=== PATIENT | female | born 1955 | race Caucasian/White ===

== ENCOUNTER 2020-06-09 11:14 | Inpatient (IN) | payer MEDICARE, OTHER ==
[2020-06-09] MEDS ORDERED: Propofol 1,000 MG/100 ML VIAL IV ONE (13:26)
[2020-06-09] MEDS ORDERED: Electrolyte Replacement Protoc 1 EACH EACH IVPB ONE (13:26)
[2020-06-09] MEDS ORDERED: Senokot S 8.6-50 MG TAB PO PRN (13:28)
[2020-06-09] MEDS ORDERED: Ventilator Sedation Protocol 1 EACH FS SCH (13:30)
[2020-06-09] MEDS ORDERED: Electrolyte Replacement Protocol FS PRN (13:45)
[2020-06-09] MEDS ORDERED: DISCONTINUE PREVIOUS NARCOTIC PAIN MEDICATIONS AND BENZODIAZEPINES FS SCH (13:45)
[2020-06-09] MEDS ORDERED: Morphine 2 MG/ML VIAL SLOW IVP PRN (13:45)
[2020-06-09] MEDS ORDERED: Propofol BOLUS 1,000 MG/100 ML VIAL IV PRN (13:45)
[2020-06-09] MEDS ORDERED: Fentanyl BOLUS 250 ML IVPB PRN (13:45)
[2020-06-09 14:10] LABS: Actual Bicarbonate (HCO3a) 43.4 mEq/L (22-28); Base Excess (BEa) 18.7 mEq/L (-2.0 to +3.0); CO2 Tension 52.3 mmHg (35.0-45.0); Calcium, Ionized (arterial) 1.12 mmol/L (1.12-1.30); Carboxyhemoglobin (COHb) 1.3 gm% (0.0-3.0); Hemoglobin (Hb) 9.2 g/dL (12.0-16.0); O2 Tension (PaO2), arterial 60.9 mmHg (> 80.0); Potassium - ABG Lab 2.94 mmol/L (3.70-5.30); pH, Arterial 7.54 (7.35-7.45)
[2020-06-09 14:11] LABS: Puncture Site RRA
[2020-06-09 14:12] LABS: ALV-art Gradient 156.925 mmHg (0-20)
[2020-06-09 15:19] LABS: #Basophils 0.1 thou/uL (0.0-0.2); #Monocytes 0.4 thou/uL (0.11-0.59); #Neutrophils 3.4 thou/uL (1.40-6.50); %Basophils 1.1 % (0.0-1.0); %Eosinophils 0.3 % (0.0-10.0); %Monocytes 7.9 % (0.0-10.0); %Neutrophils 70.7 % (42.0-75.0); Mean Corpuscular HGB CONC 32.5 g/dL (32.0-36.0); Mean Corpuscular Volume 95.4 fL (78.0-98.0); Mean Platelet Volume 7.8 fL (7.4-10.4); Platelet Count 248 thou/uL (130-400); RBC Distribution Width 15.5 % (11.5-14.5); Red Blood Cell (RBC) Count 2.89 mill/uL (4.20-5.40); White Blood Cell (WBC) Count 4.8 thou/uL (4.8-10.8)
[2020-06-09] MEDS: Lactinex Tablet PO SCH ×2 (15:24→20:18)
[2020-06-09] MEDS: Vancomycin 1 GM in Premix Bag 1 BAG IVPB SCH (15:24)
[2020-06-09] MEDS: Lorazepam 2 MG/ML VIAL SLOW IVP PRN (15:24)
[2020-06-09 15:42] LABS: Phosphorus 1.7 mg/dL (2.3-4.7)
[2020-06-09 15:45] LABS: ALT (SGPT) 46 U/L (8-55); AST (SGOT) 26 U/L (5-34); Albumin 4.3 g/dL (3.4-4.8); Alkaline Phosphatase 81 U/L (40-110); BUN (Urea Nitrogen) 18 mg/dL (9.8-20.1); Bilirubin, Total 1.3 mg/dL (0.2-1.2); Calc. Creatinine Clearance 142 mL/min (70-130); Calcium 9.9 mg/dL (7.8-10.44); Estimated GFR-MDRD Greater than 90; Globulin 2.6 g/dL (2.4-3.5); Glucose 137 mg/dL (80-115); Magnesium 2.1 mg/dL (1.6-2.6); Protein, Total 6.9 g/dL (6.0-8.3)
[2020-06-09 15:51] LABS: Chloride 92 mmol/L (98-107); Potassium 3.1 mmol/L (3.5-5.1); Sodium 145 mmol/L (136-145)
[2020-06-09 15:54] LABS: Anion Gap 23 mmol/L (10-20); Carbon Dioxide 33 mmol/L (23-31)
[2020-06-09] MEDS ORDERED: AcetaZOLAMIDE 250 MG TAB PO SCH (16:00)
--- NOTE | 2020-06-09 16:05 | CT ---
CT HEAD WITHOUT IV CONTRAST COMPARISON: None available. HISTORY: Increasing and progressive altered mental status. TECHNIQUE: Axial CT imaging at 5 mm intervals from vertex through skull base without contrast FINDINGS: Endotracheal and orogastric tubes are partially imaged. There is no evidence of an acute infarction, hemorrhage, mass effect, or midline shift. The ventricu lar system is normal in size, shape, and position. Mucous retention cyst is present in each maxillary antrum. Mastoid air cells are clear. Osseous structures appear intact.No calvarial fracture is seen. IMPRESSION: 1. No acute intracranial abnormality demonstrated.
[2020-06-09] MEDS ORDERED: Potassium Chloride 20 MEQ TAB PO SCH (16:15)
--- NOTE | 2020-06-09 16:16 | RAD ---
XR Abdomen 1 View/KUB History: Abdominal bloating Comparison: None. Findings: Enteric tube tip in gastric body. No dilated air-filled loops of large or small bowel. Conc amber for large effusions and left lower lobe consolidation. Phleboliths in the pelvis. Large volume stool within the rectum. Numerous calcified bodies project over the right femoral neck. Impression: 1. Enteric tube tip in gastric body. 2. No evidence for bowel obstruction. 3. Pleural effusions and left lower lobe consolidation.
[2020-06-09] MEDS: PHOS-NAK 1 PKT PACK PO SCH ×2 (16:22→19:30)
[2020-06-09] MEDS: Piperacillin/Tazobactam 4.5 GM in Sodium Chloride 0.9% 100 ML IVPB SCH ×2 (16:22→21:48)
--- NOTE | 2020-06-09 17:32 | OP ---
DATE OF PROCEDURE: 06/09/2020 PROCEDURE: Intubation and bronchoscopy. INDICATION: Hypoxic respiratory failure. No family or consent was available due to the patient's altered mental status. Procedure was performed as an emergency procedure. DESCRIPTION OF PROCEDURE: Patient received propofol total of 80 mg IV. She was then orally intubated with an 8.0 endotracheal tube on the second pass. Procedure was difficult due to neck positioning and an anterior trachea. Following endotracheal tube placement, there were good breath sounds and color change and the patient was placed on the ventilator. The tube was secured at 24 cm. Bronchoscope was then inserted through the endotracheal tube and tip was appropriately positioned several cm above the marie. There was old blood in the right lower lung and in the lingular segment of the left upper lung. No gross purulence or mucus plugging was identified. The underlying mucosa is without tumor or obstruction. The old blood was lavaged and fluid sent for appropriate analysis. Bronchoscope was removed and the patient continued on ventilatory support. Job ID: [id number]
[2020-06-09] MEDS: Propofol 1,000 MG/100 ML VIAL IV PRN (17:44)
[2020-06-09] MEDS ORDERED: Bisacodyl 10 MG SUPP PR SCH (18:00)
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
[2020-06-09] MEDS: Apixaban 5 MG TAB PO SCH (20:18)
[2020-06-09] MEDS: Potassium Chloride 40 MEQ in Sodium Chloride 0.9% 250 ML 250 ML IVPB SCH ×2 (20:18→23:35)
[2020-06-09] MEDS: Famotidine/PF 20 mg/2ml Vial SLOW IVP SCH (20:19)
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
[2020-06-10] MEDS: Vancomycin 1 GM in Premix Bag 1 BAG IVPB SCH ×2 (02:51→15:01)
[2020-06-10] MEDS: Piperacillin/Tazobactam 4.5 GM in Sodium Chloride 0.9% 100 ML IVPB SCH ×3 (03:04→15:02)
[2020-06-10 04:27] LABS: #Eosinphils 0.1 thou/uL (0.0-0.7); #Lymphocytes 0.9 thou/uL (1.20-3.40); #Monocytes 0.6 thou/uL (0.11-0.59); %Basophils 0.1 % (0.0-1.0); %Eosinophils 1.9 % (0.0-10.0); %Lymphocytes 13.9 % (21.0-51.0); %Monocytes 8.6 % (0.0-10.0); %Neutrophils 75.6 % (42.0-75.0); Hemoglobin 9.1 g/dL (12.0-16.0); Mean Corpuscular HGB CONC 31.6 g/dL (32.0-36.0); Mean Corpuscular Hemoglobin 30.1 pg (27.0-31.0); Mean Corpuscular Volume 95.2 fL (78.0-98.0); Mean Platelet Volume 7.4 fL (7.4-10.4); Platelet Count 263 thou/uL (130-400); RBC Distribution Width 15.7 % (11.5-14.5); Red Blood Cell (RBC) Count 3.02 mill/uL (4.20-5.40); White Blood Cell (WBC) Count 6.6 thou/uL (4.8-10.8)
[2020-06-10 04:50] LABS: ALT (SGPT) 42 U/L (8-55); AST (SGOT) 21 U/L (5-34); Albumin 4.3 g/dL (3.4-4.8); Alkaline Phosphatase 82 U/L (40-110); Anion Gap 16 mmol/L (10-20); BUN (Urea Nitrogen) 17 mg/dL (9.8-20.1); Bilirubin, Total 1.9 mg/dL (0.2-1.2); Calc. Creatinine Clearance 142 mL/min (70-130); Calcium 9.8 mg/dL (7.8-10.44); Carbon Dioxide 32 mmol/L (23-31); Chloride 100 mmol/L (98-107); Estimated GFR-MDRD Greater than 90; Globulin 2.6 g/dL (2.4-3.5); Glucose 105 mg/dL (80-115); Phosphorus 1.1 mg/dL (2.3-4.7); Protein, Total 6.9 g/dL (6.0-8.3); Sodium 145 mmol/L (136-145)
[2020-06-10] MEDS: Lorazepam 2 MG/ML VIAL SLOW IVP PRN ×2 (04:56→20:24)
[2020-06-10 05:00] LABS: Potassium 2.8 mmol/L (3.5-5.1)
[2020-06-10] MEDS ORDERED: Potassium Phosphate 22 MMOL in Sodium Chloride 0.9% 250 ML 250 ML IVPB SCH (05:00)
[2020-06-10] MEDS: Levothyroxine Sodium 100 MCG TAB PO SCH (05:44)
[2020-06-10 07:16] LABS: Actual Bicarbonate (HCO3a) 31.9 mEq/L (22-28); Base Excess (BEa) 8.9 mEq/L (-2.0 to +3.0); CO2 Tension 36.9 mmHg (35.0-45.0); Calcium, Ionized (arterial) 1.15 mmol/L (1.12-1.30); Carboxyhemoglobin (COHb) 1.1 gm% (0.0-3.0); Hemoglobin (Hb) 9.3 g/dL (12.0-16.0); Potassium - ABG Lab 2.82 mmol/L (3.70-5.30)
[2020-06-10 07:22] LABS: Puncture Site RRA; pH, Arterial 7.55 (7.35-7.45)
[2020-06-10 07:23] LABS: ALV-art Gradient 188.075 mmHg (0-20)
--- NOTE | 2020-06-10 08:04 | RAD ---
Exam: Chest one view HISTORY:Pneumonia. Intubation. Comparison: 06/07/2020 FINDINGS: Lines and tubes: Endotracheal tube and nasogastric tube have been placed since the previous exam. End otracheal tube terminates just beyond the clavicles. Nasogastric tube extends below the diaphragm. Distal tip is not seen. Cardiac silhouette: Normal Aorta: Unremarkable Pulmonary vessels: Normal Costophrenic angles: Bilateral pleural effusions. LUNGS: Basilar opacities due to atelectasis, pneumonia or aspiration. Pneumothorax: None Osseous abnormalities: None IMPRESSION: 1. Lines and tubes as above 2. Bibasilar pleural and parenchymal changes. Continued surveillance is recommended.
[2020-06-10] MEDS ORDERED: AcetaZOLAMIDE 250 MG TAB PO SCH (09:00)
[2020-06-10] MEDS ORDERED: Potassium Chloride 40 MEQ in Sodium Chloride 0.9% 250 ML 250 ML IVPB SCH (09:00)
[2020-06-10] MEDS: Lactinex Tablet PO SCH ×3 (09:21→20:20)
[2020-06-10] MEDS: Apixaban 5 MG TAB PO SCH ×2 (09:21→20:18)
[2020-06-10] MEDS: Famotidine/PF 20 mg/2ml Vial SLOW IVP SCH ×2 (09:22→20:18)
[2020-06-10] MEDS: Aspirin Chewable 81 MG TAB PO SCH (09:22)
--- NOTE | 2020-06-10 09:24 | PRG ---
DATE OF SERVICE: 06/10/2020 SUBJECTIVE: Mary Alice Mai was transferred from [facility] to [facility] with respiratory failure post intubation. This morning, she is in the ICU. She has received only Ativan. X-ray shows small bilateral pleural effusion. She is responsive. She is unfortunately quadriplegic. OBJECTIVE: GENERAL: She is awake. CHEST: Decreased breath sounds. No wheezing. CARDIAC: Normal S1 and S2. No gallops. ABDOMEN: Soft. IMPRESSION: Respiratory failure, status post intubation, small pleural effusion, congestive heart failure, pneumonia, quadriplegic, hypothyroidism, atrial fibrillation. PLAN: She is on adequate antibiotics and Eliquis and neb treatment. She has supportive care. Palliative Care is on board. We will start nutrition, try and wean as tolerated. Overall, prognosis is guarded. Discussed with family. One-half hour of critical care time. Job ID: [id number]
[2020-06-10] MEDS: Propofol 1,000 MG/100 ML VIAL IV PRN ×2 (09:43→17:43)
[2020-06-10 15:35] LABS: Potassium 3.5 mmol/L (3.5-5.1)
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
[2020-06-10] MEDS: MEROPENEM 1 GM/50 ML 1 GM in Premix Bag 1 BAG IVPB SCH (21:07)
[2020-06-10] MEDS ORDERED: Potassium Chloride 20 MEQ TAB PO SCH (22:45)
[2020-06-11] MEDS: Vancomycin 1 GM in Premix Bag 1 BAG IVPB SCH ×2 (01:24→14:28)
[2020-06-11] MEDS ORDERED: Amiodarone 150 MG, Admixture Fee 1 EACH in Dextrose 5% in Water 100 ML IVPB SCH (01:30)
[2020-06-11] MEDS: Amiodarone 450 MG, Admixture Fee 1 EACH in Dextrose 5% in Water 250 ML IVPB SCH ×2 (01:56→09:56)
[2020-06-11 03:22] LABS: #Eosinphils 0.2 thou/uL (0.0-0.7); #Lymphocytes 0.8 thou/uL (1.20-3.40); #Monocytes 0.5 thou/uL (0.11-0.59); #Neutrophils 7.8 thou/uL (1.40-6.50); %Basophils 0.3 % (0.0-1.0); %Eosinophils 2.1 % (0.0-10.0); %Lymphocytes 8.9 % (21.0-51.0); %Monocytes 5.8 % (0.0-10.0); Hemoglobin 8.5 g/dL (12.0-16.0); Mean Platelet Volume 6.9 fL (7.4-10.4); Platelet Count 206 thou/uL (130-400); RBC Distribution Width 15.7 % (11.5-14.5); Red Blood Cell (RBC) Count 2.74 mill/uL (4.20-5.40); White Blood Cell (WBC) Count 9.4 thou/uL (4.8-10.8)
[2020-06-11 03:43] LABS: ALT (SGPT) 30 U/L (8-55); AST (SGOT) 14 U/L (5-34); Albumin 3.8 g/dL (3.4-4.8); Alkaline Phosphatase 77 U/L (40-110); Anion Gap 12 mmol/L (10-20); BUN (Urea Nitrogen) 13 mg/dL (9.8-20.1); Bilirubin, Total 1.1 mg/dL (0.2-1.2); Calc. Creatinine Clearance 145 mL/min (70-130); Carbon Dioxide 29 mmol/L (23-31); Chloride 104 mmol/L (98-107); Estimated GFR-MDRD Greater than 90; Globulin 2.3 g/dL (2.4-3.5); Glucose 155 mg/dL (80-115); Protein, Total 6.1 g/dL (6.0-8.3); Sodium 142 mmol/L (136-145)
[2020-06-11 03:46] LABS: Potassium 2.8 mmol/L (3.5-5.1)
[2020-06-11] MEDS: Potassium Chloride 40 MEQ in Sodium Chloride 0.9% 250 ML 250 ML IVPB SCH ×2 (04:53→09:55)
[2020-06-11] MEDS: MEROPENEM 1 GM/50 ML 1 GM in Premix Bag 1 BAG IVPB SCH ×3 (05:23→21:11)
[2020-06-11] MEDS: Levothyroxine Sodium 100 MCG TAB PO SCH (05:24)
[2020-06-11] MEDS: Propofol 1,000 MG/100 ML VIAL IV PRN (05:57)
[2020-06-11 07:00] LABS: Magnesium 1.8 mg/dL (1.6-2.6); Phosphorus 2.9 mg/dL (2.3-4.7)
[2020-06-11 07:21] LABS: Actual Bicarbonate (HCO3a) 27.7 mEq/L (22-28); CO2 Tension 37.8 mmHg (35.0-45.0); Calcium, Ionized (arterial) 1.16 mmol/L (1.12-1.30); Carboxyhemoglobin (COHb) 0.9 gm% (0.0-3.0); O2 Tension (PaO2), arterial 116.1 mmHg (> 80.0); Potassium - ABG Lab 3.46 mmol/L (3.70-5.30); pH, Arterial 7.48 (7.35-7.45)
[2020-06-11 07:26] LABS: Puncture Site RRA
--- NOTE | 2020-06-11 07:51 | RAD ---
Chest AP view INDICATION: History of pneumonia COMPARISON: June 10, 2020 FINDINGS: Lungs: There is worsening bilateral perihilar airspace opacities suspicious for worsening edema. Air space disease persists within both lower lobes. Cardiac silhouette: There is stable cardiomegaly Pulmonary vasculature: Worsening pulmonary vascular congestion Pleural spaces: There are small bilateral pleural effusions, left greater than right. Pneumothorax Upper abdomen: No abnormality seen. Osseous structures: No acute osseous abnormality. Additional findings: Pacer remains intubated with gastric catheter placement. IMPRESSION: Worsening component of CHF. Persistent bibasilar airspace disease suspicious for pneumonia. Stable tubes and lines
--- NOTE | 2020-06-11 08:11 | PDOC.HOSPP ---
- Subjective Encounter Date: 06/10/20 Encounter Time: 10:30 Subjective: pt more awake and follows. - Objective Vital Signs & Weight: Vital Signs (12 hours) Temp Pulse Resp BP Pulse Ox 06/11/20 07:10 63 06/11/20 07:00 97.7 F 06/11/20 06:00 12 06/11/20 04:00 98.0 F 18 06/11/20 02:37 90 127/83 100 06/11/20 02:00 17 06/11/20 00:21 89 11 L 97 06/11/20 00:00 97.8 F 12 06/10/20 22:17 88 123/71 06/10/20 22:00 14 Weight Admit Weight 164 lb Weight 164 lb 3.91 oz Most Recent Monitor Data Heart Rate from ECG 67 NIBP 130/85 NIBP BP-Mean 103 Respiration from ECG 28 SpO2 100 I&O: 06/10/20 06/11/20 06/12/20 06:59 06:59 06:59 Intake Total 1500 2334.7 Output Total 2110 1920 25 Balance -610 414.7 -25 Result Diagrams: 06/11/20 03:00 06/11/20 03:00 Hospitalist ROS - Review of Systems Other: unable to obtain - Medication Medications: Active Medications Generic Name Dose Route Start Last Admin Trade Name Freq PRN Reason Stop Dose Admin Acidophilus 1 tab 06/09/20 15:00 06/10/20 20:20 Lactinex Tablet PO 1 tab TID JEEVAN Administration Albuterol/Ipratropium 3 ml 06/10/20 13:00 06/11/20 07:10 Ipratropium/Albuterol Sulfate 3 Ml Neb NEB 3 ml [id number] JEEVAN Administration Apixaban 5 mg 06/09/20 21:00 06/10/20 20:18 Apixaban 5 Mg Tab PO 5 mg BID JEEVAN Administration Aspirin 81 mg 06/10/20 09:00 06/10/20 09:22 Aspirin Chewable 81 Mg Tab PO 81 mg DAILY JEEVAN Administration Famotidine 20 mg 06/09/20 21:00 06/10/20 20:18 Famotidine/Pf 20 Mg/2ml Vial SLOW IVP 20 mg Q12HR JEEVAN Administration Vancomycin HCl 1 gm/ Device 200 mls @ 200 mls/hr 06/09/20 14:00 06/11/20 01:24 IVPB 200 mls 0200,1400 JEEVAN Administration Meropenem 1 gm/ Device 50 mls @ 100 mls/hr 06/10/20 22:00 06/11/20 05:23 IVPB 50 mls Q8HR JEEVAN Administration Amiodarone HCl 450 mg/ 259 mls @ 0 mls/hr 06/11/20 01:30 06/11/20 01:56 Miscellaneous Medication 1 IVPB 259 mls each/ Dextrose/Water INF JEEVAN Administration Protocol As Directed Potassium Chloride 40 meq/ 270 mls @ 67.5 mls/hr 06/11/20 05:00 06/11/20 04:53 Sodium Chloride IVPB 06/11/20 12:59 270 mls Q4HR JEEVAN Administration Levothyroxine Sodium 100 mcg 06/10/20 06:00 06/11/20 05:24 Levothyroxine Sodium 100 Mcg Tab PO 100 mcg 0600 JEEVAN Administration Lorazepam 2 mg 06/09/20 13:45 06/10/20 20:24 Lorazepam 2 Mg/Ml Vial SLOW IVP 07/09/20 13:45 2 mg Q1H PRN Administration Breakthrough agitation Propofol 1,000 mg 06/09/20 13:45 06/11/20 05:57 Propofol 1,000 Mg/100 Ml Vial IV 07/09/20 13:45 1,000 mg INF PRN Administration TO ACHIEVE GOAL RASS Protocol - Exam Neck: negative: supple, symmetric, no JVD, no thyromegaly, no lymphadenopathy, no carotid bruit, JVD Heart: negative: RRR, no murmur, no gallops, no rubs, normal peripheral pulses, irregular, diminshed peripheral pulses, murmur present, II/IV, III/IV Respiratory: negative: CTAB, no wheezes, no rales, no ronchi, normal chest expansion, no tachypnea, normal percussion, rales, rhonchi, tachypneic, wheezes Gastrointestinal: negative: soft, non-tender, non-distended, normal bowel sounds, no palpable masses, no hepatomegaly, no splenomegaly, no bruit, no guarding, no rigidity, tender to palpation, distended, diminished bowl sounds, voluntary guarding Hosp A/P (1) Acute respiratory failure with hypoxia Code(s): J96.01 - ACUTE RESPIRATORY FAILURE WITH HYPOXIA Status: Acute (2) Hypokalemia Code(s): E87.6 - HYPOKALEMIA Status: Acute (3) Pneumonia Code(s): J18.9 - PNEUMONIA, UNSPECIFIED ORGANISM Status: Acute (4) Atrial fibrillation Code(s): I48.91 - UNSPECIFIED ATRIAL FIBRILLATION Status: Chronic Qualifiers: (5) Hypothyroidism Code(s): E03.9 - HYPOTHYROIDISM, UNSPECIFIED Status: Chronic (6) Quadriplegia Code(s): G82.50 - QUADRIPLEGIA, UNSPECIFIED Status: Chronic - Plan will continue abx. she is more awake today and follows. cx negative. will replace electrolytes.
[2020-06-11] MEDS ORDERED: Magnesium 2 GM/50 ML 2 GM in Premix Bag 1 BAG IVPB SCH (08:15)
--- NOTE | 2020-06-11 09:10 | PRG ---
DATE OF SERVICE: 06/11/2020 SUBJECTIVE: Mary Alice Mai, this morning, was extubated, still appears somewhat encephalopathic, but in no distress. OBJECTIVE: VITAL SIGNS: Sats are 100% on a liter, pulse 63, blood pressure . CHEST: Decreased breath sounds. No wheezing. CARDIAC: Normal S1, S2. No gallops. ABDOMEN: Soft. NEUROLOGIC: She is paraplegic. LABORATORY DATA: White count 9000, H and H 8 and 25, platelet count 206. PO2 of 116, pCO2 bicarb was 29, potassium 2.8. Lytes are normal. X-ray still shows bilateral infiltrates. IMPRESSION: Presumed sepsis syndrome, bilateral pulmonary infiltrates, respiratory failure, morbid obesity, probably hypoventilation syndrome. PLAN: Antibiotics as per Infectious Disease. Continue PT, supportive care. She may require nocturnal BiPAP. We will follow. One-half hour of critical care time. Job ID: [id number]
[2020-06-11] MEDS: Apixaban 5 MG TAB PO SCH (09:54)
[2020-06-11] MEDS: Aspirin Chewable 81 MG TAB PO SCH (09:54)
[2020-06-11] MEDS: Famotidine/PF 20 mg/2ml Vial SLOW IVP SCH ×2 (09:55→21:12)
[2020-06-11] MEDS: Lactinex Tablet PO SCH ×3 (09:55→21:06)
--- NOTE | 2020-06-11 16:07 | PDOC.FMACP ---
Advance Care Planning - Problem (1) Palliative care encounter Status: Acute Code(s): Z51.5 - ENCOUNTER FOR PALLIATIVE CARE (2) Acute respiratory failure with hypoxia Status: Acute Code(s): J96.01 - ACUTE RESPIRATORY FAILURE WITH HYPOXIA (3) Heart failure Status: Acute Code(s): I50.9 - HEART FAILURE, UNSPECIFIED Qualifiers: Heart failure type: diastolic Heart failure chronicity: acute on chronic Qualified Code(s): I50.33 - Acute on chronic diastolic (congestive) heart failure - Note Participants: patient, surrogate decision-maker, palliative care Summary: Palliative Care discussed Advanced Care Planning. The diagnosis, prognosis and goals of care were discussed. Appropriate forms and documentation to accomplish the goals of care were discussed. All questions were answered. Completed MPOA with patient as well as discussed Directive to Physician. Confirms placement of PEG if needed, not certain if she would desire a Trach. Discussed she would like resuscitation "one more time". Please also refer to Palliative Care notes in note section. Time Spent (mins): 20
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
--- NOTE | 2020-06-11 16:31 | PDOC.HOSPP ---
- Subjective Encounter Date: 06/11/20 Encounter Time: 16:00 Subjective: pt up in bed no complains - Objective Vital Signs & Weight: Vital Signs (12 hours) Temp Pulse Pulse Pulse Resp BP BP 06/11/20 14:09 63 06/11/20 12:49 66 24 H 06/11/20 11:00 97.9 F 06/11/20 09:50 76 80 151/96 H 126/96 H 06/11/20 08:00 17 06/11/20 07:59 06/11/20 07:10 63 06/11/20 07:00 97.7 F 06/11/20 06:00 12 Pulse Ox Pulse Ox Pulse Ox 06/11/20 14:09 06/11/20 12:49 98 06/11/20 11:00 06/11/20 09:50 99 100 06/11/20 08:00 06/11/20 07:59 100 06/11/20 07:10 06/11/20 07:00 06/11/20 06:00 Weight Admit Weight 164 lb Weight 164 lb 3.91 oz Most Recent Monitor Data Heart Rate from ECG 58 NIBP 113/64 NIBP BP-Mean 74 Respiration from ECG 20 SpO2 99 I&O: 06/10/20 06/11/20 06/12/20 06:59 06:59 06:59 Intake Total 1500 2334.7 350 Output Total 2110 1920 255 Balance -610 414.7 95 Result Diagrams: 06/11/20 03:00 06/11/20 03:00 Hospitalist ROS - Review of Systems Respiratory: denies: cough, dry, shortness of breath, hemoptysis, SOB with excertion, pleuritic pain, sputum, wheezing, other Cardiovascular: denies: chest pain, palpitations, orthopnea, paroxysmal noc. dyspnea, edema, light headedness, other Gastrointestinal: denies: nausea, vomiting, abdominal pain, diarrhea, constipation, melena, hematochezia, other - Medication Medications: Active Medications Generic Name Dose Route Start Last Admin Trade Name Freq PRN Reason Stop Dose Admin Acidophilus 1 tab 06/09/20 15:00 06/11/20 14:27 Lactinex Tablet PO 1 tab TID JEEVAN Administration Albuterol/Ipratropium 3 ml 06/10/20 13:00 06/11/20 12:49 Ipratropium/Albuterol Sulfate 3 Ml Neb NEB 3 ml [id number] JEEVAN Administration Apixaban 5 mg 06/09/20 21:00 06/11/20 09:54 Apixaban 5 Mg Tab PO 5 mg BID JEEVAN Administration Aspirin 81 mg 06/10/20 09:00 06/11/20 09:54 Aspirin Chewable 81 Mg Tab PO 81 mg DAILY JEEVAN Administration Famotidine 20 mg 06/09/20 21:00 06/11/20 09:55 Famotidine/Pf 20 Mg/2ml Vial SLOW IVP 20 mg Q12HR JEEVAN Administration Vancomycin HCl 1 gm/ Device 200 mls @ 200 mls/hr 06/09/20 14:00 06/11/20 14:28 IVPB 200 mls 0200,1400 JEEVAN Administration Meropenem 1 gm/ Device 50 mls @ 100 mls/hr 06/10/20 22:00 06/11/20 14:33 IVPB 50 mls Q8HR JEEVAN Administration Amiodarone HCl 450 mg/ 259 mls @ 0 mls/hr 06/11/20 01:30 06/11/20 09:56 Miscellaneous Medication 1 IVPB 259 mls each/ Dextrose/Water INF JEEVAN Administration Protocol As Directed Levothyroxine Sodium 100 mcg 06/10/20 06:00 06/11/20 05:24 Levothyroxine Sodium 100 Mcg Tab PO 100 mcg 0600 JEEVAN Administration Lorazepam 2 mg 06/09/20 13:45 06/10/20 20:24 Lorazepam 2 Mg/Ml Vial SLOW IVP 07/09/20 13:45 2 mg Q1H PRN Administration Breakthrough agitation Propofol 1,000 mg 06/09/20 13:45 06/11/20 05:57 Propofol 1,000 Mg/100 Ml Vial IV 07/09/20 13:45 1,000 mg INF PRN Administration TO ACHIEVE GOAL RASS Protocol - Exam Heart: negative: RRR, no murmur, no gallops, no rubs, normal peripheral pulses, irregular, diminshed peripheral pulses, murmur present, II/IV, III/IV Respiratory: negative: CTAB, no wheezes, no rales, no ronchi, normal chest expansion, no tachypnea, normal percussion, rales, rhonchi, tachypneic, wheezes Gastrointestinal: negative: soft, non-tender, non-distended, normal bowel so unds, no palpable masses, no hepatomegaly, no splenomegaly, no bruit, no guarding, no rigidity, tender to palpation, distended, diminished bowl sounds, voluntary guarding Extremities: 1+ LE edema Hosp A/P (1) Acute respiratory failure with hypoxia Code(s): J96.01 - ACUTE RESPIRATORY FAILURE WITH HYPOXIA Status: Acute (2) Hypokalemia Code(s): E87.6 - HYPOKALEMIA Status: Acute (3) Pneumonia Code(s): J18.9 - PNEUMONIA, UNSPECIFIED ORGANISM Status: Acute (4) Atrial fibrillation Code(s): I48.91 - UNSPECIFIED ATRIAL FIBRILLATION Status: Chronic Qualifiers: (5) Hypothyroidism Code(s): E03.9 - HYPOTHYROIDISM, UNSPECIFIED Status: Chronic (6) Quadriplegia Code(s): G82.50 - QUADRIPLEGIA, UNSPECIFIED Status: Chronic - Plan will continue abx. she is more awake today and follows. cx negative. will replace electrolytes. 06/11 will continue abx for now. pt extubated doing well. she has agreed on peg tube since pt is aspirating.
[2020-06-11 17:21] LABS: Potassium 4.2 mmol/L (3.5-5.1)
--- NOTE | 2020-06-11 18:44 | PQF ---
CLINICAL DOCUMENTATION CLARIFICATION FORM: Dear Dr. SHAVONNE PEREZ Date: 06-11-20 Please exercise your independent, professional judgment in responding to the clarification form. Clinical indicators are provided on the bottom of this form for your review. Please check appropriate box(es) to clarify if the following diagnosis has been ruled in our ruled out: SEPSIS [ ] Ruled in diagnosis [ ] Continue to treat [ ] Resolved [ x ] Ruled out diagnosis [ ] Other diagnosis [ ] Unable to determine In addition, please specify: Present on Admission (POA): [ ] Yes [ x ] No [ ] Unable to determine For continuity of documentation, please document condition throughout progress notes and discharge summary. Thank You. To be completed by CDI/Coding staff for physician review: CLINICAL INDICATORS - SIGNS / SYMPTOMS / LABS / RESULTS AND LOCATION IN MR: H&P 06-09: ACUTE HYPOXIC AND HYPERCAPNIC RESPIRATORY FAILURE, MOST LIKELY SECONDARY TO PNEUMONIA, PNEUMONIA COULD BE POSSIBLE SECONDARY TO ASPIRATION, GUADRIPLEGIA, METABOLIC ALKALOSIS CONSULT NOTE DR. SHERIFF 06-11-20: PRESUMED SEPSIS SYNDROME, BILATERAL PULMONARY INFILTRATES, RESPIRATORY FAILURE, MORBID OBESITY, PROBABLY HYPOVENTILATION SYNDROME NEUTROPHILS: 06-10-20: 75.6, 06-11-20: 83.0 RISK FACTORS / RESULTS AND LOCATION IN MR: H&P -: ACUTE HYPOXIC AND HYPERCAPNIC RESPIRATORY FAILURE, MOST LIKELY SECONDARY TO PNEUMONIA, PNEUMONIA COULD BE POSSIBLE SECONDARY TO ASPIRATION, GUADRIPLEGIA, METABOLIC ALKALOSIS TREATMENTS / RESULTS AND LOCATION IN MR: MAR: 06-10-20: MEROPENEM IV, VANCOMYCIN IV, ZOSYN IV 06-09-20 CDS Signature: Kaleigh Murdock Phone #: [phone] Date: 06-11-20 This is a permanent part of the Medical Record [facility]
[2020-06-12] MEDS: Amiodarone 450 MG, Admixture Fee 1 EACH in Dextrose 5% in Water 250 ML IVPB SCH ×2 (01:29→15:12)
[2020-06-12] MEDS: Vancomycin 1 GM in Premix Bag 1 BAG IVPB SCH (01:30)
--- NOTE | 2020-06-12 01:44 | CON ---
DATE OF CONSULTATION: 06/11/2020 REASON FOR CONSULTATION: Possible oropharyngeal dysphagia, in need of PEG tube placement. CONSULTING PROVIDER: Dr. Mere Pierce. HISTORY OF PRESENT ILLNESS: The patient is a 64-year-old female with past medical history of hypothyroidism; chronic anemia; paroxysmal atrial fibrillation, on anticoagulation (Eliquis); chronic indwelling Lozoya catheter; C5 quadriplegia; and recurrent pneumonias concerning for aspiration pneumonia, initially presenting with respiratory failure. The patient was initially seen at the [facility] where the patient presented with worsening shortness of breath and hypoxia. She was initially placed on BiPAP as part of noninvasive oxygenation/pressure management, but despite this intervention, she continued to worsen and was subsequently transferred to [facility] in [place]. Shortly after admission, the patient was tachypneic, lethargic, and not following commands and was subsequently intubated for further control of her hypoxia. Over the last few days, the patient has been doing well and was subsequently extubated yesterday. However, during the course of starting her feeds after extubation, it was noted that she had increased coughing and gagging episodes in addition to significant oxygen desaturation with ingestion of any oral intake concerning for aspiration. With her respiratory failure, this was deemed to be secondary to a probable pneumonia and given her acute oxygen desaturation with ingestion of any food stuffs, is now concerning for the presence of aspiration pneumonia and oropharyngeal dysphagia. On evaluation of the patient tonight, she states that she is doing much better, although she does have some mild conversational dyspnea during the course of the conversation. Currently, she states that her breathing "could be better," but otherwise is doing well. She currently denies any nausea, vomiting, fevers, chills, hematemesis, melena, hematochezia, abdominal pain, or abdominal pain. When I broached the subject of possible PEG tube placement with the patient, she initially did not feel that she wanted to undergo this procedure, but later during the course of the interview stated that she would "think about it." She has not been formally evaluated by the Speech Pathology Service just yet to confirm the presence of aspiration. REVIEW OF SYSTEMS: A 10-category review of systems was obtained with all responses negative except for the pertinent positives as listed in HPI. PAST MEDICAL HISTORY: As per HPI. PAST SURGICAL HISTORY: Spinal cord surgery. FAMILY HISTORY: Denies any GI malignancies. SOCIAL HISTORY: Denies any tobacco, alcohol, or illicit drug use. INPATIENT MEDICATIONS: Reviewed. ALLERGIES: SULFA. PHYSICAL EXAMINATION: VITAL SIGNS: Temperature 97.2, pulse 59, blood pressure 110/70, respiratory rate 16, saturating 98% on 2 L nasal cannula. GENERAL: The patient was lying in bed, in no acute distress. Alert and oriented x4. HEENT: Normocephalic and atraumatic. NECK: Supple. No JVD or scleral icterus noted. Mild conversational dyspnea. CARDIOVASCULAR: Irregularly irregular rhythm with no discernible murmurs, gallops, or rubs. RESPIRATORY: Diminished breath sounds in the bilateral lower lung torres, but no evidence of wheezing or rhonchi. ABDOMEN: Normoactive bowel sounds. Soft, nontender, and nondistended. EXTREMITIES: No cyanosis, clubbing, or edema. LABORATORY DATA: CBC with a white blood cell count of 9.4, hemoglobin 8.5, hematocrit 25.8, platelets 206. Chemistry with a sodium of 142, potassium 2.8, chloride 104, CO2 of 29, BUN 13, creatinine 0.47, glucose 155, AST 14, ALT 30, alkaline phosphatase 77, total bilirubin 1.1. BNP 547. Albumin 3.8. IMAGING DATA: Chest x-ray obtained on June 11, 2020, showed worsening bilateral perihilar airspace opacity suspicious for worsening edema that persists within both lower lobes, worsening pulmonary vascular congestion, small bilateral pleural effusions with left greater than right with persistent bibasilar airspace disease suspicious for continue pneumonia. ASSESSMENT AND PLAN: The patient is a 64-year-old female with past medical history of hypothyroidism; chronic anemia; paroxysmal atrial fibrillation, on Eliquis; C5 quadriplegia with chronic indwelling Lozoya catheter, now presenting with recurrent pneumonias during the course of this month strongly concerning for the presence of aspiration pneumonia. Aspiration pneumonia. The patient is presenting with repeated hospitalizations since the beginning of May for diagnoses of pneumonia that has responded well to antibiotic administration. During the course of this admission, the patient was initially presenting with acute hypoxia and respiratory failure that required intubation as part of treatment for her pneumonia. Again, she responded well to antibiotic administration, was subsequently extubated yesterday. However, upon extubation and feeding the patient in the post extubation period, she was noted to have significant oxygen desaturation with the ingestion of any food stuff concerning for the presence of oropharyngeal dysphagia contributing to an aspiration pneumonia. At the current time, the patient is n.p.o. prior to evaluation by the Speech Pathology Service to establish the diagnosis of oropharyngeal dysphagia. Upon my conversation with the patient today, she is unsure whether or not she would like to proceed with gastrostomy tube placement after long discussion of the risks and benefits to the procedure itself and the long-term implications of the placement of the PEG tube. RECOMMENDATIONS: 1. Would hold her Eliquis for now with placing the patient on Lovenox as a bridge prior to possible procedure later this week. She will need to be off the Eliquis for approximately 48 hours prior to proceeding with PEG tube placement. 2. Agree with consulting the Speech Pathology Service for confirmation of the diagnosis of oropharyngeal dysphagia prior to proceeding to any instrumentation. 3. We will need to talk to the patient tomorrow regarding her desire to proceed with gastrostomy tube placement. Risks and benefits were extensively discussed today. 4. Would continue n.p.o. status in light of possible aspiration pneumonia. 5. Continue with broad-spectrum antibiotics as part of treatment for pneumonia. We will continue to follow. Please call with any questions. Job ID: [id number]
[2020-06-12] MEDS: Levothyroxine Sodium 100 MCG TAB PO SCH (05:12)
[2020-06-12] MEDS: MEROPENEM 1 GM/50 ML 1 GM in Premix Bag 1 BAG IVPB SCH ×3 (05:12→21:54)
[2020-06-12 05:36] LABS: #Eosinphils 0.3 thou/uL (0.0-0.7); #Lymphocytes 0.9 thou/uL (1.20-3.40); #Monocytes 0.4 thou/uL (0.11-0.59); #Neutrophils 5.3 thou/uL (1.40-6.50); %Basophils 0.5 % (0.0-1.0); %Eosinophils 4.8 % (0.0-10.0); %Lymphocytes 12.7 % (21.0-51.0); %Neutrophils 76.1 % (42.0-75.0); Hemoglobin 7.7 g/dL (12.0-16.0); Mean Corpuscular HGB CONC 31.9 g/dL (32.0-36.0); Mean Corpuscular Hemoglobin 30.4 pg (27.0-31.0); Mean Corpuscular Volume 95.3 fL (78.0-98.0); Mean Platelet Volume 7.3 fL (7.4-10.4); Platelet Count 196 thou/uL (130-400); RBC Distribution Width 16.2 % (11.5-14.5); Red Blood Cell (RBC) Count 2.54 mill/uL (4.20-5.40)
[2020-06-12 06:04] LABS: ALT (SGPT) 32 U/L (8-55); AST (SGOT) 18 U/L (5-34); Albumin 3.7 g/dL (3.4-4.8); Alkaline Phosphatase 78 U/L (40-110); Anion Gap 12 mmol/L (10-20); BUN (Urea Nitrogen) 13 mg/dL (9.8-20.1); Bilirubin, Total 0.7 mg/dL (0.2-1.2); Calc. Creatinine Clearance 147 mL/min (70-130); Calcium 8.8 mg/dL (7.8-10.44); Carbon Dioxide 28 mmol/L (23-31); Chloride 106 mmol/L (98-107); Estimated GFR-MDRD Greater than 90; Globulin 2.3 g/dL (2.4-3.5); Glucose 96 mg/dL (80-115); Magnesium 2.3 mg/dL (1.6-2.6); Potassium 3.9 mmol/L (3.5-5.1); Sodium 142 mmol/L (136-145)
--- NOTE | 2020-06-12 08:06 | RAD ---
EXAM: CHEST ONE VIEW HISTORY: Follow-up evaluation. Patient on ventilator. COMPARISON: 06/11/2020 FINDINGS: Endotracheal tube and nasogastric tubes have been removed. Cardiac silhouette remains stable in size. There is an area of dense parenchymal consolidation seen at the right lung base which does appear mildly increased from prior study and may be related to pneumonia. There also appears to be dense opa city in the retrocardiac region similar to prior exam. Bilateral perihilar interstitial and patchy parenchymal airspace opacities are also again seen. This may be related to an element of pulmonary ed paris or infectious process. No other interval change. IMPRESSION: 1. Dense area of consolidation right lung base worrisome for pneumonia. There is also persistent dens e opacity in the retrocardiac region left lung base not well assessed on this exam but also could be related to pneumonia, pleural effusion, and/or atelectasis. 2. Increased perihilar interstitial and patchy airspace opacities which could be related to pulmonary edema or infectious process. 3. Interval removal of the endotracheal tube and nasogastric tube.
[2020-06-12] MEDS: Famotidine/PF 20 mg/2ml Vial SLOW IVP SCH ×2 (08:29→19:33)
[2020-06-12] MEDS: Lactinex Tablet PO SCH ×3 (08:29→19:33)
[2020-06-12] MEDS ORDERED: Furosemide 40 MG/4 ML VIAL IVP SCH (08:45)
[2020-06-12 08:53] LABS: Actual Bicarbonate (HCO3a) 30.3 mEq/L (22-28); Base Excess (BEa) 2.6 mEq/L (-2.0 to +3.0); Calcium, Ionized (arterial) 1.25 mmol/L (1.12-1.30); Carboxyhemoglobin (COHb) 1.7 gm% (0.0-3.0); Hemoglobin (Hb) 8.3 g/dL (12.0-16.0); O2 Tension (PaO2), arterial 81.1 mmHg (> 80.0); Potassium - ABG Lab 4.05 mmol/L (3.70-5.30); pH, Arterial 7.27 (7.35-7.45)
[2020-06-12 08:56] LABS: Puncture Site RRA
[2020-06-12] MEDS ORDERED: EPINEPHrine 1 MG/ML AMP ONE (09:22)
[2020-06-12] MEDS ORDERED: EPINEPHrine 1 MG/10 ML Abboject SYRINGE ONE (09:22)
--- NOTE | 2020-06-12 09:33 | PRG ---
DATE OF SERVICE: 06/12/2020 SUBJECTIVE: Mary Alice Mai is a 64-year-old female. This morning, feeling more tired, more lethargic. OBJECTIVE: VITAL SIGNS: , saturation of 90% on BiPAP, blood pressure . CHEST: Decreased breath sounds. Bilateral rhonchi and crackles. CARDIAC: Normal S1, S2. No gallops. ABDOMEN: No masses. LABORATORY DATA: White count 7000, H and H 7 and 24. Platelet count is normal. Lytes are normal. BNP is 457. X-ray shows worsening bilateral infiltrates, left pleural effusion. ASSESSMENT: 1. Multiorgan failure in a quadriplegic patient. 2. Bilateral bronchopneumonia. 3. Supraventricular tachycardia. 4. Dysphagia. PLAN: I spoke to the patient's power of contracts attorney medically, Veena Conner. She said she spoke to the patient yesterday when she was more alert. She wanted everything to be done including a trach and a PEG to prolong her life. She is already on adequate antibiotics. I am going to give a trial of Lasix. Cardiology was consulted yesterday. EP was consulted. GI was consulted. I am going to order a blood gas. She may very well require intubation and vent support. One-half hour of critical care time. Job ID: [id number]
[2020-06-12] MEDS: fentaNYL Citrate/PF 2,000 MCG in Sodium Chloride 0.9% 60 ML IV SCH (09:53)
[2020-06-12 10:28] LABS: Actual Bicarbonate (HCO3a) 26.4 mEq/L (22-28); Analyzer IN Cardio ER; Base Excess (BEa) 2.1 mEq/L (-2.0 to +3.0); CO2 Tension 40.1 mmHg (35.0-45.0); Calcium, Ionized (arterial) 1.17 mmol/L (1.12-1.30); Carboxyhemoglobin (COHb) 1.1 gm% (0.0-3.0); Hemoglobin (Hb) 8.9 g/dL (12.0-16.0); O2 Tension (PaO2), arterial 87.5 mmHg (> 80.0); Potassium - ABG Lab 3.68 mmol/L (3.70-5.30); pH, Arterial 7.44 (7.35-7.45)
[2020-06-12 10:31] LABS: Puncture Site RRA
[2020-06-12 10:32] LABS: ALV-art Gradient 111.925 mmHg (0-20)
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
--- NOTE | 2020-06-12 12:41 | OP ---
DATE OF PROCEDURE: 06/12/2020 PROCEDURE PERFORMED: Intubation followed by bronchoscopy, lavage procedure. INDICATIONS FOR PROCEDURE: Mary Alice Mai is a 64-year-old female. This morning, she was found to be much more lethargic. Blood gas obtained shows pO2 of 81, pCO2 of 68 , P7 .20 on BiPAP 12/5 with a backup rate of 10. It was felt that she needs to be intubated. I spoke to her medical power of consumer attorney, she said the patient wanted everything to be done. DESCRIPTION OF PROCEDURE: After informed consent, a bite block was placed in. A 7.5 endotracheal tube was placed over the bronchoscope using a bite block was passed via the posterior pharynx via the vocal cords into the trachea. There was a large amount of blood seen in the distal trachea. Upon entering the bronchus the trachea was secured, cuff was inflated. She was back with sats of 100%. Thereafter, bronchoscopy and lavage performed because of significant hemorrhage. Large volume of bright-red blood was seen in the distal trachea, which was suctioned, lavaged to clear. Thereafter, the right lung had been inspected, further large volume of blood was seen with clots, which was completely lavaged with normal saline total of 50 mL. Thereafter, the right upper, right middle, right lower lobes were visualized without any further endobronchial disease seen. The left lung was inspected thereafter. This had less amount of blood. This was also suctioned, lavaged to clear. The left upper and left lower lobes were visualized once again without any further endobronchial disease. Epinephrine 3 mL of 1:10,000 instilled into the right lung. Washing was sent for Gram stain and C and S. it is my impression that she is probably going to require a PEG because she is having issues with dysphagia and possibly recurrent aspiration. Job ID: [id number] [facility]
--- NOTE | 2020-06-12 12:56 | PDOC.HOSPP ---
- Subjective Encounter Date: 06/12/20 Encounter Time: 11:45 Subjective: pt intubated - Objective Vital Signs & Weight: Vital Signs (12 hours) Temp Pulse Resp BP Pulse Ox 06/12/20 12:00 99.3 F 14 100 06/12/20 10:06 79 105/79 06/12/20 10:00 14 06/12/20 09:00 94.9 F L 06/12/20 07:34 17 96 06/12/20 04:00 97.6 F 06/12/20 03:01 55 L Weight Admit Weight 164 lb Weight 165 lb 9.074 oz Most Recent Monitor Data Heart Rate from ECG 112 NIBP 153/101 NIBP BP-Mean 117 Respiration from ECG 20 SpO2 98 I&O: 06/11/20 06/12/20 06/13/20 06:59 06:59 06:59 Intake Total 2334.7 1500 0 Output Total 9569 780 0869 Balance 414.7 680 -1905 Result Diagrams: 06/12/20 05:20 06/12/20 05:20 Hospitalist ROS - Review of Systems Other: pt intubated - Medication Medications: Active Medications Generic Name Dose Route Start Last Admin Trade Name Freq PRN Reason Stop Dose Admin Acidophilus 1 tab 06/09/20 15:00 06/12/20 08:29 Lactinex Tablet PO Not Given TID JEEVAN Albuterol/Ipratropium 3 ml 06/10/20 13:00 06/12/20 04:58 Ipratropium/Albuterol Sulfate 3 Ml Neb NEB 3 ml [id number] JEEVAN Administration Famotidine 20 mg 06/09/20 21:00 06/12/20 08:29 Famotidine/Pf 20 Mg/2ml Vial SLOW IVP 20 mg Q12HR JEEVAN Administration Vancomycin HCl 1 gm/ Device 200 mls @ 200 mls/hr 06/09/20 14:00 06/12/20 01:30 IVPB 200 mls 0200,1400 JEEVAN Administration Fentanyl Citrate 2,000 mcg/ 100 mls @ 0 mls/hr 06/09/20 13:45 06/12/20 09:53 Sodium Chloride IV 07/09/20 13:45 100 mls INF JEEVAN Administration Protocol Per Protocol Meropenem 1 gm/ Device 50 mls @ 100 mls/hr 06/10/20 22:00 06/12/20 05:12 IVPB 50 mls Q8HR JEEVAN Administration Amiodarone HCl 450 mg/ 259 mls @ 0 mls/hr 06/11/20 01:30 06/12/20 01:29 Miscellaneous Medication 1 IVPB 259 mls each/ Dextrose/Water INF JEEVAN Administration Protocol As Directed Lorazepam 2 mg 06/09/20 13:45 06/10/20 20:24 Lorazepam 2 Mg/Ml Vial SLOW IVP 07/09/20 13:45 2 mg Q1H PRN Administration Breakthrough agitation Propofol 1,000 mg 06/09/20 13:45 06/11/20 05:57 Propofol 1,000 Mg/100 Ml Vial IV 07/09/20 13:45 1,000 mg INF PRN Administration TO ACHIEVE GOAL RASS Protocol - Exam Neck: negative: supple, symmetric, no JVD, no thyromegaly, no lymphadenopathy, no carotid bruit, JVD Heart: negative: RRR, no murmur, no gallops, no rubs, normal peripheral pulses, irregular, diminshed peripheral pulses, murmur present, II/IV, III/IV Respiratory: rhonchi Gastrointestinal: negative: soft, non-tender, non-distended, normal bowel sounds , no palpable masses, no hepatomegaly, no splenomegaly, no bruit, no guarding, no rigidity, tender to palpation, distended, diminished bowl sounds, voluntary guarding Hosp A/P (1) Acute respiratory failure with hypoxia Code(s): J96.01 - ACUTE RESPIRATORY FAILURE WITH HYPOXIA Status: Acute (2) Hypokalemia Code(s): E87.6 - HYPOKALEMIA Status: Acute (3) Pneumonia Code(s): J18.9 - PNEUMONIA, UNSPECIFIED ORGANISM Status: Acute (4) Atrial fibrillation Code(s): I48.91 - UNSPECIFIED ATRIAL FIBRILLATION Status: Chronic Qualifiers: (5) Hypothyroidism Code(s): E03.9 - HYPOTHYROIDISM, UNSPECIFIED Status: Chronic (6) Quadriplegia Code(s): G82.50 - QUADRIPLEGIA, UNSPECIFIED Status: Chronic - Plan will continue abx. she is more awake today and follows. cx negative. will replace electrolytes. 06/11 will continue abx for now. pt extubated doing well. she has agreed on peg tube since pt is aspirating. 06/12 pt has worsening cxr. she was reintubated. pt will most likely trach and peg. I did speak with pt's caregiver emmy and updated her. I also educated her that getting trach and peg will not prevent aspiration she can still aspirate. will continue abx. pt on AC for afib. pt was on iv amio for afib rvr
[2020-06-12 13:19] LABS: Vancomycin, Trough 28.4 ug/mL
[2020-06-12] MEDS ORDERED: Levothyroxine Sodium 100 MCG TAB PO SCH (13:30)
[2020-06-12] MEDS ORDERED: VANCOMYCIN IVPB PRN (13:37)
[2020-06-12] MEDS ORDERED: Vancomycin 1 GM in Premix Bag 1 BAG IVPB SCH (14:00)
--- NOTE | 2020-06-12 14:42 | PDOC.CPN ---
- Subjective Date: 06/12/20 Time: 08:00 Interval history: The pt seen and examined. No overnight events. No cardiac complaints. - Objective Allergies/Adverse Reactions: Allergies Allergy/AdvReac Type Severity Reaction Status Date / Time Sulfa (Sulfonamide Allergy Verified 05/26/20 01:22 Antibiotics) Visit Medications: Current Medications Acidophilus (Lactinex Tablet) 1 tab PO TID [facility] Last Admin: 06/12/20 08:29 Dose: Not Given Documented by: Albuterol/Ipratropium (Ipratropium/Albuterol Sulfate 3 Ml Neb) 3 ml NEB [id number] JEEVAN Last Admin: 06/12/20 13:49 Dose: 3 ml Documented by: Bisacodyl (Bisacodyl 10 Mg Supp) 10 mg AR Q8H PRN PRN Reason: Constipation Famotidine (Famotidine/Pf 20 Mg/2ml Vial) 20 mg SLOW IVP Q12HR [facility] Last Admin: 06/12/20 08:29 Dose: 20 mg Documented by: Fentanyl Citrate 2,000 mcg/ (Sodium Chloride) 100 mls @ 0 mls/hr IV INF JEEVAN; Protocol Stop: 07/09/20 13:45 Last Admin: 06/12/20 09:53 Dose: 100 mls Documented by: Fentanyl Citrate (Fentanyl Bolus) 250 mls @ 0 mls/hr IVPB PRN PRN PRN Reason: Breakthrough pain/agitation Stop: 07/09/20 13:45 Meropenem 1 gm/ Device 50 mls @ 100 mls/hr IVPB Q8HR [facility] Last Admin: 06/12/20 05:12 Dose: 50 mls Documented by: Amiodarone HCl 450 mg/Miscellaneous Medication 1 each/ Dextrose/Water 259 mls @ 0 mls/hr IVPB INF JEEVAN; Protocol Last Admin: 06/12/20 01:29 Dose: 259 mls Documented by: Vancomycin HCl 1 gm/ Device 200 mls @ 200 mls/hr IVPB 0200,1400 [facility] Levothyroxine Sodium (Levothyroxine Sodium 100 Mcg Tab) 100 mcg PO 0600 [facility] Levothyroxine Sodium (Levothyroxine Sodium 100 Mcg Tab) 100 mcg PO NOW [facility] Stop: 06/12/20 15:00 Lorazepam (Lorazepam 2 Mg/Ml Vial) 2 mg SLOW IVP Q1H PRN PRN Reason: Breakthrough agitation Stop: 07/09/20 13:45 Last Admin: 06/10/20 20:24 Dose: 2 mg Documented by: Miscellaneous Medication (Electrolyte Replacement Protocol) 0 each FS ASDIR PRN; Protocol PRN Reason: ELECTROLYTE REPLACEMENT Miscellaneous Medication (Vancomycin) 1 each IVPB PRN PRN PRN Reason: Pharmacy to dose Morphine Sulfate (Morphine 2 Mg/Ml Vial) 2 mg SLOW IVP Q1H PRN PRN Reason: Breakthrough Pain/Agitation Stop: 07/09/20 13:45 Discontinue Previous Narcotic Pain Medications And Benzodiazepines 1 each FS .ONE JEEVAN Stop: 07/09/20 13:45 Propofol (Propofol 1,000 Mg/100 Ml Vial) 1,000 mg IV INF PRN; Protocol PRN Reason: TO ACHIEVE GOAL RASS Stop: 07/09/20 13:45 Last Admin: 06/11/20 05:57 Dose: 1,000 mg Documented by: Propofol (Propofol Bolus 1,000 Mg/100 Ml Vial) 20 mg IV Q5MIN PRN PRN Reason: BREAKTHROUGH AGITATION Stop: 07/09/20 13:45 Senna/Docusate Sodium (Senokot S 8.6-50 Mg Tab) 2 tab PO BIDPRN PRN PRN Reason: Constipation Vital Signs & Weight: Vital Signs Temp Pulse Resp BP Pulse Ox 06/12/20 14:34 124 H 117/81 06/12/20 14:00 13 06/12/20 13:49 100 17 99 06/12/20 13:00 20 100 06/12/20 12:00 99.3 F 14 100 06/12/20 10:06 79 105/79 06/12/20 10:00 14 06/12/20 09:00 94.9 F L 06/12/20 07:34 17 96 06/12/20 04:00 97.6 F 06/12/20 03:01 55 L Admit Weight 162 lb 4.163 oz Weight 165 lb 9.074 oz - Physical Exam General: alert & oriented x3 HEENT: mucus membranes moist Cardiac: regular rate and rhythm, S1/S2 Lungs: clear to auscultation, decreased breath sounds - Labs Result Diagrams: 06/13/20 06:43 06/13/20 06:43 - Telemetry Sinus rhythms and dysrhythmias: sinus rhythm - Assessment/Plan Assessment/Plan: 1. New onset Aflutter with RVR - remains in SR; On Amiodarone drip; Maritza is on hold due to plan for PEG tube placement; not on Lovenox for now due to low Hgb 7.7 today 2. Parox Afib - remains in SR; Will start Bblocker once her VS is more stable; she was reintubated due to worsening of OLIVO. 3. Acute respiratory failure with hypoxia - stable with NC this AM; however, 4. PNA - possible 2/2 aspiration PNA 5. Hypothyroidism 6. Quadriplegia MAR reviewed * Dr Crump pt Pt. seen and eval. by me. She is back in atrial fib. Required intubation, unable to clear secretions. Plan for tracheostomy and PEG tube per pt. wishes.Chest: rhonchi/rales. Irreg./irreg. mild tachycardia. kurt
[2020-06-12] MEDS: Lorazepam 2 MG/ML VIAL SLOW IVP PRN (15:12)
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
--- NOTE | 2020-06-12 17:17 | PRG ---
DATE OF SERVICE: 06/12/2020 SUBJECTIVE: Ms. Mai is now intubated. The nurse informs me that she had to be intubated secondary to diminishing mental status and hypoxemia, ventilatory failure related to recurrent aspiration yesterday. The patient refused the idea of being n.p.o. and having a PEG tube and is going to think about it. Apparently, today, the nurses note that the durable power of cello teacher is making decisions and has requested the PEG and trach. Eliquis was held yesterday, last dose was 5 mg yesterday morning. MEDICATIONS: 1. Floranex. 2. DuoNebs. 3. Amiodarone. 4. Diltiazem. 5. Famotidine. 6. P.r.n. fentanyl. 7. Synthroid. 8. Meropenem. 9. Lorazepam. 10. Propofol. 11. She has been restarted on tube feeds. OBJECTIVE: VITAL SIGNS: Temperature 99, blood pressure 120/68. GENERAL: She is sedated. She has OG-tube for feeding. She is intubated. ABDOMEN: She has a large abdomen. There is no palpable hepatosplenomegaly. Bowel sounds are quiescent. There is no rebound. There is no guarding. LABORATORY DATA: White count 7.0; hemoglobin 7.7, it was 8.5 yesterday, 9 the day before that; platelet count 196. Comprehensive metabolic profile, BUN and creatinine 12 and 0.46, sodium 142, potassium 3.9. Liver function tests normal. Cortisol is 14, ASSESSMENT: 1. admission for pneumonia, likely recurrent aspiration. She was not able to be evaluated by Speech Pathology prior to she was being reintubated. 2. Respiratory failure. 3. Hypothyroidism. RECOMMENDATIONS: We can place the PEG tube if the power of cello teacher decided that they want to proceed with; however, yesterday the patient would not commit to being n.p.o. The PEG tube will not prevent aspiration. It may decrease aspiration with oral intake if the patient agrees to cease all oral intake. As this is an elective procedure, we will await until Eliquis has been off for 48 hours and that likely be Wednesday morning. We can place that or alternatively whoever is going to place her trach. If it is Surgery and they want to place the PEG, they can do both at the same time. We will make planning on that tomorrow. Job ID: [id number]
[2020-06-12 20:36] LABS: Anion Gap 16 mmol/L (10-20); BUN (Urea Nitrogen) 10 mg/dL (9.8-20.1); Calc. Creatinine Clearance 122 mL/min (70-130); Calcium 9.4 mg/dL (7.8-10.44); Carbon Dioxide 27 mmol/L (23-31); Chloride 102 mmol/L (98-107); Estimated GFR-MDRD Greater than 90; Glucose 99 mg/dL (80-115); Potassium 3.1 mmol/L (3.5-5.1); Sodium 142 mmol/L (136-145)
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
[2020-06-13] MEDS: fentaNYL Citrate/PF 2,000 MCG in Sodium Chloride 0.9% 60 ML IV SCH (05:36)
[2020-06-13] MEDS: MEROPENEM 1 GM/50 ML 1 GM in Premix Bag 1 BAG IVPB SCH ×3 (05:45→21:33)
[2020-06-13] MEDS: Levothyroxine Sodium 100 MCG TAB PO SCH (05:45)
[2020-06-13] MEDS: Amiodarone 450 MG, Admixture Fee 1 EACH in Dextrose 5% in Water 250 ML IVPB SCH ×2 (06:07→16:29)
[2020-06-13 06:53] LABS: #Eosinphils 0.3 thou/uL (0.0-0.7); #Lymphocytes 1.1 thou/uL (1.20-3.40); #Monocytes 0.6 thou/uL (0.11-0.59); #Neutrophils 4.8 thou/uL (1.40-6.50); %Basophils 0.2 % (0.0-1.0); %Eosinophils 4.7 % (0.0-10.0); %Lymphocytes 16.1 % (21.0-51.0); %Monocytes 8.1 % (0.0-10.0); Hemoglobin 8.8 g/dL (12.0-16.0); Mean Corpuscular HGB CONC 32.5 g/dL (32.0-36.0); Mean Corpuscular Hemoglobin 30.8 pg (27.0-31.0); Mean Corpuscular Volume 94.7 fL (78.0-98.0); Mean Platelet Volume 7.4 fL (7.4-10.4); Platelet Count 244 thou/uL (130-400); RBC Distribution Width 15.9 % (11.5-14.5); Red Blood Cell (RBC) Count 2.85 mill/uL (4.20-5.40); White Blood Cell (WBC) Count 6.8 thou/uL (4.8-10.8)
[2020-06-13 06:57] LABS: Actual Bicarbonate (HCO3a) 31.1 mEq/L (22-28); Base Excess (BEa) 8.6 mEq/L (-2.0 to +3.0); CO2 Tension 34.3 mmHg (35.0-45.0); Calcium, Ionized (arterial) 1.14 mmol/L (1.12-1.30); Carboxyhemoglobin (COHb) 1.3 gm% (0.0-3.0); Hemoglobin (Hb) 8.9 g/dL (12.0-16.0); O2 Tension (PaO2), arterial 82.7 mmHg (> 80.0)
[2020-06-13 07:02] LABS: ALV-art Gradient 88.325 mmHg (0-20); Puncture Site LRA; pH, Arterial 7.58 (7.35-7.45)
[2020-06-13 07:16] LABS: ALT (SGPT) 35 U/L (8-55); AST (SGOT) 28 U/L (5-34); Albumin 3.9 g/dL (3.4-4.8); Alkaline Phosphatase 91 U/L (40-110); Anion Gap 15 mmol/L (10-20); BUN (Urea Nitrogen) 14 mg/dL (9.8-20.1); Bilirubin, Total 1.3 mg/dL (0.2-1.2); Calc. Creatinine Clearance 136 mL/min (70-130); Calcium 9.2 mg/dL (7.8-10.44); Carbon Dioxide 26 mmol/L (23-31); Chloride 104 mmol/L (98-107); Estimated GFR-MDRD Greater than 90; Globulin 2.6 g/dL (2.4-3.5); Glucose 111 mg/dL (80-115); Potassium 3.3 mmol/L (3.5-5.1); Protein, Total 6.5 g/dL (6.0-8.3); Sodium 142 mmol/L (136-145)
[2020-06-13] MEDS ORDERED: Potassium Chloride 40 MEQ in Premix Bag 1 BAG IVPB SCH (08:00)
--- NOTE | 2020-06-13 08:04 | RAD ---
EXAM: CHEST ONE VIEW HISTORY: On ventilator. Follow-up evaluation. COMPARISON: 06/12/2020 FINDINGS: Endotracheal tube is now noted in place with tip overlying the T6 vertebral body and above the level of the marie. Nasogastric tube is now noted in place which courses into the upper abdomen, tip is not imaged. Dense area of consolidation is again seen at the right lung base worrisome for pneumonia. There is also increased density in the retrocardiac region left lung base which may also be related to denser consolidation secondary to pneumonia, atelectasis, and/or volume loss. No other int erval change. IMPRESSION: 1. Persistent dense area of consolidation right lung base with increased density at the left lung bas e in the retrocardiac region. Findings may related to bibasilar pneumonia. Pleural fluid left lung base could not be excluded. 2. Endotracheal tube and nasogastric tube now noted in place.
[2020-06-13] MEDS: Lactinex Tablet PO SCH ×3 (09:13→21:33)
[2020-06-13] MEDS: Famotidine/PF 20 mg/2ml Vial SLOW IVP SCH (09:13)
--- NOTE | 2020-06-13 10:23 | PRG ---
DATE OF SERVICE: 06/13/2020 SUBJECTIVE: Mary Alice Mai is a 64-year-old morbidly obese female, who is intubated yesterday with progressive respiratory failure. X-ray still shows rather dense right lower pneumonia. OBJECTIVE: VITAL SIGNS: Pulse 78, blood pressure 139/90, 18, sats 95%. I's and O's have been even. CHEST: No wheezing. No crackles. CARDIAC: Normal S1 and S2. No gallops. ABDOMEN: No masses. LABORATORY DATA: PO2 is 82, pCO2 of 35, . White count , platelet count 244. Lytes are normal. ASSESSMENT AND PLAN: 1. Supraventricular tachycardia. 2. Pneumonia, aspiration, paraplegic, hypothyroidism. She is clearly not weanable at this stage. Family said she wanted everything to be done including a trach and a PEG. I am going to give her several days to see whether she gets better. If not, she is going to end up being trached and pegged. We let her to go to some long-term facility. In the meantime, she is on antibiotics. I am going to start low-dose steroids. Prognosis is grave. One-half hour of critical care time. Job ID: [id number]
--- NOTE | 2020-06-13 11:27 | PRG ---
DATE OF SERVICE: 06/13/2020 SUBJECTIVE: Ms. Mai has remained intubated on the ventilator. Dr. Yepez does not consider her weanable today. She is receiving tube feeds through orogastric tube and tolerating them just fine. She is having some difficulty communicating by pointing out letters on her pad, but is expressing desire to wean off the ventilator if possible. She also indicates that she is still not certain that she even wants to proceed with any PEG tube placement. OBJECTIVE: VITAL SIGNS: Temperature 98.3, pulse 71, blood pressure 131/88, and 97% oxygen saturation on ventilator. GENERAL: Critically ill, awake and alert, on ventilator. HEART: Regular rate and rhythm. LUNGS: Bibasilar crackles. ABDOMEN: Nondistended. Bowel sounds present. Nontender to palpation. EXTREMITIES: No peripheral edema. LABORATORY STUDIES: Hemoglobin 8.8, WBC 6.8, and platelets 244. Sodium 142, potassium 3.3, BUN 14, and creatinine 0.51. Total bilirubin 1.3, alkaline phosphatase 91, AST 28, ALT 35, and albumin 3.9. ASSESSMENT: 1. Oropharyngeal dysphagia. 2. Pneumonia. 3. Respiratory failure, now on ventilator. 4. Atrial flutter, converted back to sinus rhythm, on amiodarone. I had a long discussion with the patient and her caregiver today. It is unclear whether the patient is going to be able to be weaned from the ventilator over the next few days. It may be that she ends up needing tracheostomy placement. If that is the case, then I think the PEG tube would best be placed at the time of the tracheostomy by the surgeon, rather than trying to do a 2nd procedure with us. The patient still is really not certain whether she wants to proceed with either of these measures. Accordingly, GI is going to back off and follow peripherally for now. We will remain available for PEG placement at the appropriate time if that is what the patient decides to do, and if tracheostomy is not needed or the surgeon would like us to participate. Otherwise, please just feel free to call back anytime with questions or concerns. Job ID: [id number]
--- NOTE | 2020-06-13 12:26 | PDOC.EP ---
- Subjective Date: 06/13/20 Time: 12:24 Interval History: Remains intubated. No arrhythmias overnight - Objective Allergies/Adverse Reactions: Allergies Allergy/AdvReac Type Severity Reaction Status Date / Time Sulfa (Sulfonamide Allergy Verified 05/26/20 01:22 Antibiotics) Current Medications Acidophilus (Lactinex Tablet) 1 tab PO TID JEEVAN Last Admin: 06/13/20 09:13 Dose: 1 tab Documented by: Albuterol/Ipratropium (Ipratropium/Albuterol Sulfate 3 Ml Neb) 3 ml NEB [id number] JEEVAN Last Admin: 06/13/20 06:38 Dose: 3 ml Documented by: Bisacodyl (Bisacodyl 10 Mg Supp) 10 mg [place] Q8H PRN PRN Reason: Constipation Famotidine (Famotidine 20 Mg Tab) 20 mg PER TUBE Q12HR JEEVAN Fentanyl Citrate 2,000 mcg/ (Sodium Chloride) 100 mls @ 0 mls/hr IV INF JEEVAN; Protocol Stop: 07/09/20 13:45 Last Admin: 06/13/20 05:36 Dose: 100 mls Documented by: Fentanyl Citrate (Fentanyl Bolus) 250 mls @ 0 mls/hr IVPB PRN PRN PRN Reason: Breakthrough pain/agitation Stop: 07/09/20 13:45 Meropenem 1 gm/ Device 50 mls @ 100 mls/hr IVPB Q8HR JEEVAN Last Admin: 06/13/20 05:45 Dose: 50 mls Documented by: Amiodarone HCl 450 mg/Miscellaneous Medication 1 each/ Dextrose/Water 259 mls @ 0 mls/hr IVPB INF JEEVAN; Protocol Last Admin: 06/13/20 06:07 Dose: 259 mls Documented by: Diltiazem HCl 125 mg/Miscellaneous Medication 1 each/ Sodium Chloride 125 mls @ 5 mls/hr IVPB INF JEEVAN; Protocol Last Admin: 06/12/20 16:15 Dose: 125 mls Documented by: Potassium Chloride 40 meq/ (Device) 100 mls @ 25 mls/hr IVPB NOW EJEVAN Stop: 06/13/20 14:00 Last Admin: 06/13/20 09:12 Dose: 100 mls Documented by: Levothyroxine Sodium (Levothyroxine Sodium 100 Mcg Tab) 100 mcg PO 0600 JEEVAN Last Admin: 06/13/20 05:45 Dose: 100 mcg Documented by: Lorazepam (Lorazepam 2 Mg/Ml Vial) 2 mg SLOW IVP Q1H PRN PRN Reason: Breakthrough agitation Stop: 07/09/20 13:45 Last Admin: 06/12/20 15:12 Dose: 2 mg Documented by: Methylprednisolone Sodium Succinate (Methylprednisolone Sod Succ 40 Mg Vial) 40 mg IVP Q6HR [facility] Miscellaneous Medication (Electrolyte Replacement Protocol) 0 each FS ASDIR PRN; Protocol PRN Reason: ELECTROLYTE REPLACEMENT Morphine Sulfate (Morphine 2 Mg/Ml Vial) 2 mg SLOW IVP Q1H PRN PRN Reason: Breakthrough Pain/Agitation Stop: 07/09/20 13:45 Discontinue Previous Narcotic Pain Medications And Benzodiazepines 1 each FS .ONE JEEVAN Stop: 07/09/20 13:45 Propofol (Propofol 1,000 Mg/100 Ml Vial) 1,000 mg IV INF PRN; Protocol PRN Reason: TO ACHIEVE GOAL RASS Stop: 07/09/20 13:45 Last Admin: 06/11/20 05:57 Dose: 1,000 mg Documented by: Propofol (Propofol Bolus 1,000 Mg/100 Ml Vial) 20 mg IV Q5MIN PRN PRN Reason: BREAKTHROUGH AGITATION Stop: 07/09/20 13:45 Senna/Docusate Sodium (Senokot S 8.6-50 Mg Tab) 2 tab PO BIDPRN PRN PRN Reason: Constipation Sodium Chloride (Flush - Normal Saline 10 Ml Syringe) 10 ml IVF Q12HR [facility] Last Admin: 06/13/20 09:13 Dose: 10 ml Documented by: Sodium Chloride (Flush - Normal Saline 10 Ml Syringe) 10 ml IVF PRN PRN PRN Reason: Saline Flush Vital Signs & Weight: Vital Signs Temp Pulse Resp BP 06/13/20 10:02 73 06/13/20 10:00 23 H 06/13/20 08:00 98.3 F 25 H 06/13/20 06:39 78 06/13/20 06:00 14 06/13/20 04:00 98 F 14 06/13/20 02:11 63 165/101 H 06/13/20 02:00 14 06/13/20 01:00 98.5 F Admit Weight 162 lb 4.163 oz Weight 167 lb 15.876 oz I/O: I/O 0906/13/20 06/14/20 06:59 06:59 06:59 Intake Total 1500 2247 58.3 Output Total 820 3440 740 Balance 680 -1193 -681.7 - Labs Result Diagrams: 06/13/20 06:43 06/13/20 06:43 - Assessment/Plan Assessment/Plan: Typical atrial flutter & paroxysmal atrial fibrillation - No arrhythmias overnight. On IV amiodarone Anemia Respiratory failure/pneumonia Qudraplegia Recommend: Continue IV amiodarone at 0.5 mg/min
[2020-06-13] MEDS: methylPREDNISolone Sod Succ 40 MG VIAL IVP SCH ×2 (12:32→17:00)
[2020-06-13 16:38] LABS: Potassium 4.1 mmol/L (3.5-5.1)
--- NOTE | 2020-06-13 17:11 | PDOC.HOSPP ---
- Subjective Encounter Date: 06/13/20 Encounter Time: 10:30 Subjective: pt up in bed awake following commands - Objective Vital Signs & Weight: Vital Signs (12 hours) Temp Pulse Resp Pulse Ox 06/13/20 16:00 98.7 F 13 06/13/20 15:42 66 06/13/20 14:00 14 06/13/20 13:40 70 06/13/20 13:00 98.7 F 06/13/20 12:57 13 06/13/20 10:02 73 06/13/20 10:00 23 H 06/13/20 08:00 98.3 F 25 H 100 06/13/20 06:39 78 06/13/20 06:00 14 Weight Admit Weight 162 lb 4.163 oz Weight 167 lb 15.876 oz Most Recent Monitor Data Heart Rate from ECG 68 NIBP 167/90 NIBP BP-Mean 117 Respiration from ECG 14 SpO2 94 I&O: 06/12/20 06/13/20 06/14/20 06:59 06:59 06:59 Intake Total 1500 2247 118.3 Output Total 820 3440 1000 Balance 680 -1193 -881.7 Result Diagrams: 06/13/20 06:43 06/13/20 16:04 Hospitalist ROS - Review of Systems Cardiovascular: denies: chest pain, palpitations, orthopnea, paroxysmal noc. dyspnea, edema, light headedness, other Gastrointestinal: denies: nausea, vomiting, abdominal pain, diarrhea, constipation, melena, hematochezia, other Genitourinary: denies: dysuria, frequency, incontinence, hematuria, retention, other - Medication Medications: Active Medications Generic Name Dose Route Start Last Admin Trade Name Freq PRN Reason Stop Dose Admin Acidophilus 1 tab 06/09/20 15:00 06/13/20 14:43 Lactinex Tablet PO 1 tab TID JEEVAN Administration Albuterol/Ipratropium 3 ml 06/10/20 13:00 06/13/20 13:40 Ipratropium/Albuterol Sulfate 3 Ml Neb NEB 3 ml [id number] JEEVAN Administration Fentanyl Citrate 2,000 mcg/ 100 mls @ 0 mls/hr 06/09/20 13:45 06/13/20 05:36 Sodium Chloride IV 07/09/20 13:45 100 mls INF JEEVAN Administration Protocol Per Protocol Meropenem 1 gm/ Device 50 mls @ 100 mls/hr 06/10/20 22:00 06/13/20 14:43 IVPB 50 mls Q8HR JEEVAN Administration Amiodarone HCl 450 mg/ 259 mls @ 0 mls/hr 06/11/20 01:30 06/13/20 16:29 Miscellaneous Medication 1 IVPB 259 mls each/ Dextrose/Water INF JEEVAN Administration Protocol As Directed Diltiazem HCl 125 mg/ 125 mls @ 5 mls/hr 06/12/20 16:00 06/13/20 16:28 Miscellaneous Medication 1 IVPB 125 mls each/ Sodium Chloride INF JEEVAN Administration Protocol Levothyroxine Sodium 100 mcg 06/13/20 06:00 06/13/20 05:45 Levothyroxine Sodium 100 Mcg Tab PO 100 mcg 0600 JEEVAN Administration Lorazepam 2 mg 06/09/20 13:45 06/12/20 15:12 Lorazepam 2 Mg/Ml Vial SLOW IVP 07/09/20 13:45 2 mg Q1H PRN Administration Breakthrough agitation Methylprednisolone Sodium Succinate 40 mg 06/13/20 12:00 06/13/20 12:32 Methylprednisolone Sod Succ 40 Mg Vial IVP 40 mg Q6HR JEEVAN Administration Propofol 1,000 mg 06/09/20 13:45 06/11/20 05:57 Propofol 1,000 Mg/100 Ml Vial IV 07/09/20 13:45 1,000 mg INF PRN Administration TO ACHIEVE GOAL RASS Protocol Sodium Chloride 10 ml 06/13/20 09:00 06/13/20 09:13 Flush - Normal Saline 10 Ml Syringe IVF 10 ml Q12HR JEEVAN Administration - Exam Neck: negative: supple, symmetric, no JVD, no thyromegaly, no lymphadenopathy, no carotid bruit, JVD Heart: negative: RRR, no murmur, no gallops, no rubs, normal peripheral pulses, irregular, diminshed peripheral pulses, murmur present, II/IV, III/IV Respiratory: negative: CTAB, no wheezes, no rales, no ronchi, normal chest expansion, no tachypnea, normal percussion, rales, rhonchi, tachypneic, wheezes Gastrointestinal: negative: soft, non-tender, non-distended, normal bowel sounds, no palpable masses, no hepatomegaly, no splenomegaly, no bruit, no guarding, no rigidity, tender to palpation, distended, diminished bowl sounds, voluntary guarding Hosp A/P (1) Acute respiratory failure with hypoxia Code(s): J96.01 - ACUTE RESPIRATORY FAILURE WITH HYPOXIA Status: Acute (2) Hypokalemia Code(s): E87.6 - HYPOKALEMIA Status: Acute (3) Pneumonia Code(s): J18.9 - PNEUMONIA, UNSPECIFIED ORGANISM Status: Acute (4) Atrial fibrillation Code(s): I48.91 - UNSPECIFIED ATRIAL FIBRILLATION Status: Chronic Qualifiers: (5) Hypothyroidism Code(s): E03.9 - HYPOTHYROIDISM, UNSPECIFIED Status: Chronic (6) Quadriplegia Code(s): G82.50 - QUADRIPLEGIA, UNSPECIFIED Status: Chronic - Plan will continue abx. she is more awake today and follows. cx negative. will replace electrolytes. 06/11 will continue abx for now. pt extubated doing well. she has agreed on peg tube since pt is aspirating. 06/12 pt has worsening cxr. she was reintubated. pt will most likely trach and peg. I did speak with pt's caregiver emmy and updated her. I also educated her that getting trach and peg will not prevent aspiration she can still aspirate. will continue abx. pt on AC for afib. pt was on iv amio for afib rvr 06/13 pt awake and follows command. she is on AC. she is on diltiazem and amio. pt will need trach and peg.
[2020-06-13] MEDS: Bisacodyl 10 MG SUPP PR PRN (18:10)
[2020-06-13] MEDS ORDERED: Ondansetron PF 4 MG/2 ML Vial IVP PRN (20:58)
[2020-06-13] MEDS: Famotidine 20 MG TAB PER TUBE SCH (21:33)
[2020-06-14] MEDS: methylPREDNISolone Sod Succ 40 MG VIAL IVP SCH ×4 (00:25→17:36)
[2020-06-14 04:49] LABS: #Lymphocytes 0.7 thou/uL (1.20-3.40); #Monocytes 0.3 thou/uL (0.11-0.59); #Neutrophils 8.6 thou/uL (1.40-6.50); %Basophils 0.1 % (0.0-1.0); %Eosinophils 0.2 % (0.0-10.0); %Lymphocytes 7.1 % (21.0-51.0); %Monocytes 2.9 % (0.0-10.0); %Neutrophils 89.7 % (42.0-75.0); Hemoglobin 8.8 g/dL (12.0-16.0); Mean Corpuscular HGB CONC 32.3 g/dL (32.0-36.0); Mean Corpuscular Hemoglobin 30.4 pg (27.0-31.0); Mean Platelet Volume 7.3 fL (7.4-10.4); Platelet Count 297 thou/uL (130-400); RBC Distribution Width 15.9 % (11.5-14.5); Red Blood Cell (RBC) Count 2.91 mill/uL (4.20-5.40); White Blood Cell (WBC) Count 9.6 thou/uL (4.8-10.8)
[2020-06-14 05:07] LABS: ALT (SGPT) 35 U/L (8-55); AST (SGOT) 20 U/L (5-34); Albumin 4.1 g/dL (3.4-4.8); Alkaline Phosphatase 101 U/L (40-110); Anion Gap 14 mmol/L (10-20); BUN (Urea Nitrogen) 14 mg/dL (9.8-20.1); Bilirubin, Total 1.4 mg/dL (0.2-1.2); Calc. Creatinine Clearance 133 mL/min (70-130); Calcium 9.8 mg/dL (7.8-10.44); Carbon Dioxide 28 mmol/L (23-31); Chloride 106 mmol/L (98-107); Estimated GFR-MDRD Greater than 90; Globulin 2.8 g/dL (2.4-3.5); Glucose 161 mg/dL (80-115); Potassium 3.8 mmol/L (3.5-5.1); Protein, Total 6.9 g/dL (6.0-8.3); Sodium 144 mmol/L (136-145)
[2020-06-14] MEDS: MEROPENEM 1 GM/50 ML 1 GM in Premix Bag 1 BAG IVPB SCH ×3 (05:51→22:20)
[2020-06-14] MEDS: Levothyroxine Sodium 100 MCG TAB PO SCH (05:51)
[2020-06-14] MEDS: fentaNYL Citrate/PF 2,000 MCG in Sodium Chloride 0.9% 60 ML IV SCH (06:06)
[2020-06-14 07:05] LABS: Actual Bicarbonate (HCO3a) 27.9 mEq/L (22-28); Base Excess (BEa) 4.4 mEq/L (-2.0 to +3.0); CO2 Tension 37.4 mmHg (35.0-45.0); Calcium, Ionized (arterial) 1.21 mmol/L (1.12-1.30); Carboxyhemoglobin (COHb) 1.2 gm% (0.0-3.0); Hemoglobin (Hb) 8.7 g/dL (12.0-16.0); O2 Tension (PaO2), arterial 115.2 mmHg (> 80.0); Potassium - ABG Lab 3.41 mmol/L (3.70-5.30); pH, Arterial 7.49 (7.35-7.45)
[2020-06-14 07:13] LABS: Puncture Site RRAD
--- NOTE | 2020-06-14 07:50 | RAD ---
Chest AP view INDICATION: Intubation COMPARISON: June 13, 2020 FINDINGS: Lungs: Bilateral airspace disease is stable Cardiac silhouette: Cardiomegaly is stable Pulmonary vasculature: Pulmonary vascular congestion central edema pattern is stable Pleural spaces: The small left and a right pleural effusion persists. No pneumothorax is evident. Upper abdomen: No abnormality seen. Osseous structures: Thoracic scoliosis is stable. Additional findings: ET tube and gastric catheter unchanged. IMPRESSION: Stable exam
--- NOTE | 2020-06-14 08:27 | PRG ---
DATE OF SERVICE: 06/14/2020 SUBJECTIVE: This morning, she is awake, responsive, still tachypneic, on the vent several days. X-ray shows no improvement of the bilateral infiltrates. OBJECTIVE: VITAL SIGNS: Pulse 68, saturations 100%, blood pressure 145/85. I's and O's negative. CHEST: Decreased breath sounds. Rhonchi. CARDIAC: Normal S1, S2. No gallops. ABDOMEN: Soft. NEUROLOGIC: She is awake, responsive. LABORATORY DATA: White count 9000, H and H of , platelet count 297. PO2 is 115, pCO2 . Lytes are normal. IMPRESSION AND PLAN: 1. Supraventricular tachycardia. 2. Respiratory failure. 3. Pneumonia. 4. Quadriplegia. 5. Dysphagia. She is clearly not weanable. Unfortunately, we are going to continue antibiotics. Continue steroids. May give her a few more days trial of the vent, but it appears she may be heading toward a trach and a PEG. TIME SPENT: One-half hour of critical time. Job ID: [id number]
[2020-06-14] MEDS: Lactinex Tablet PO SCH ×3 (08:35→20:27)
[2020-06-14] MEDS: Famotidine 20 MG TAB PER TUBE SCH ×2 (08:36→20:27)
[2020-06-14] MEDS: Lorazepam 2 MG/ML VIAL SLOW IVP PRN ×2 (08:36→20:27)
--- NOTE | 2020-06-14 08:44 | PDOC.BPN ---
- Brief Progress Note Encounter Date: 06/14/20 Encounter Time: 08:41
--- NOTE | 2020-06-14 08:46 | PDOC.EP ---
- Subjective Date: 06/14/20 Time: 08:45 Interval History: Awake, intubated. No PEG. SR with rates in the 70-80's mostly. On IV amio and dilt. - Review of Systems ROS unobtainable: due to endotracheal tube - Objective Allergies/Adverse Reactions: Allergies Allergy/AdvReac Type Severity Reaction Status Date / Time Sulfa (Sulfonamide Allergy Verified 05/26/20 01:22 Antibiotics) Current Medications Acidophilus (Lactinex Tablet) 1 tab PO TID JEEVAN Last Admin: 06/14/20 08:35 Dose: 1 tab Documented by: Albuterol/Ipratropium (Ipratropium/Albuterol Sulfate 3 Ml Neb) 3 ml NEB [id number] JEEVAN Last Admin: 06/14/20 07:16 Dose: 3 ml Documented by: Bisacodyl (Bisacodyl 10 Mg Supp) 10 mg DE Q8H PRN PRN Reason: Constipation Last Admin: 06/13/20 18:10 Dose: 10 mg Documented by: Famotidine (Famotidine 20 Mg Tab) 20 mg PER TUBE Q12HR JEEVAN Last Admin: 06/14/20 08:36 Dose: 20 mg Documented by: Fentanyl Citrate 2,000 mcg/ (Sodium Chloride) 100 mls @ 0 mls/hr IV INF JEEVAN; Protocol Stop: 07/09/20 13:45 Last Admin: 06/14/20 06:06 Dose: 100 mls Documented by: Fentanyl Citrate (Fentanyl Bolus) 250 mls @ 0 mls/hr IVPB PRN PRN PRN Reason: Breakthrough pain/agitation Stop: 07/09/20 13:45 Meropenem 1 gm/ Device 50 mls @ 100 mls/hr IVPB Q8HR JEEVAN Last Admin: 06/14/20 05:51 Dose: 50 mls Documented by: Amiodarone HCl 450 mg/Miscellaneous Medication 1 each/ Dextrose/Water 259 mls @ 0 mls/hr IVPB INF JEEVAN; Protocol Last Admin: 06/13/20 16:29 Dose: 259 mls Documented by: Diltiazem HCl 125 mg/Miscellaneous Medication 1 each/ Sodium Chloride 125 mls @ 5 mls/hr IVPB INF JEEVAN; Protocol Last Admin: 06/13/20 16:28 Dose: 125 mls Documented by: Levothyroxine Sodium (Levothyroxine Sodium 100 Mcg Tab) 100 mcg PO 0600 [facility] Last Admin: 06/14/20 05:51 Dose: 100 mcg Documented by: Lorazepam (Lorazepam 2 Mg/Ml Vial) 2 mg SLOW IVP Q1H PRN PRN Reason: Breakthrough agitation Stop: 07/09/20 13:45 Last Admin: 06/14/20 08:36 Dose: 2 mg Documented by: Methylprednisolone Sodium Succinate (Methylprednisolone Sod Succ 40 Mg Vial) 40 mg IVP Q6HR [facility] Last Admin: 06/14/20 05:51 Dose: 40 mg Documented by: Miscellaneous Medication (Electrolyte Replacement Protocol) 0 each FS ASDIR PRN; Protocol PRN Reason: ELECTROLYTE REPLACEMENT Morphine Sulfate (Morphine 2 Mg/Ml Vial) 2 mg SLOW IVP Q1H PRN PRN Reason: Breakthrough Pain/Agitation Stop: 07/09/20 13:45 Discontinue Previous Narcotic Pain Medications And Benzodiazepines 1 each FS .ONE JEEVAN Stop: 07/09/20 13:45 Propofol (Propofol 1,000 Mg/100 Ml Vial) 1,000 mg IV INF PRN; Protocol PRN Reason: TO ACHIEVE GOAL RASS Stop: 07/09/20 13:45 Last Admin: 06/11/20 05:57 Dose: 1,000 mg Documented by: Propofol (Propofol Bolus 1,000 Mg/100 Ml Vial) 20 mg IV Q5MIN PRN PRN Reason: BREAKTHROUGH AGITATION Stop: 07/09/20 13:45 Senna/Docusate Sodium (Senokot S 8.6-50 Mg Tab) 2 tab PO BIDPRN PRN PRN Reason: Constipation Sodium Chloride (Flush - Normal Saline 10 Ml Syringe) 10 ml IVF Q12HR [facility] Last Admin: 06/13/20 21:33 Dose: 10 ml Documented by: Sodium Chloride (Flush - Normal Saline 10 Ml Syringe) 10 ml IVF PRN PRN PRN Reason: Saline Flush Vital Signs & Weight: Vital Signs Temp Pulse Resp BP Pulse Ox 06/14/20 08:00 14 06/14/20 07:16 68 15 100 06/14/20 07:14 74 06/14/20 06:00 14 06/14/20 04:00 98.4 F 18 06/14/20 02:30 78 140/90 06/14/20 02:00 19 06/14/20 00:00 98.1 F 14 06/13/20 23:46 78 140/79 06/13/20 22:00 20 06/13/20 21:42 74 144/94 H Admit Weight 162 lb 4.163 oz Weight 176 lb I/O: I/O 06/13/20 06/14/20 06/15/20 06:59 06:59 06:59 Intake Total 2247 1751.6 Output Total 3440 2035 Balance -1193 -283.4 - Physical Exam General: other (Alert, shakes head to questions.) Cardiology: regular rate and rhythm Extremities: dry, + edema B - Labs Result Diagrams: 06/14/20 04:35 06/14/20 04:35 - EKG Interpretation Status: report reviewed by me EKG Method: Telemetry EKG shows: Sinus rhythm - Problem (1) Atrial fibrillation Code(s): I48.91 - UNSPECIFIED ATRIAL FIBRILLATION Qualifiers: (2) Atrial flutter Code(s): I48.92 - UNSPECIFIED ATRIAL FLUTTER - Assessment/Plan Assessment/Plan: In SR. Continue IV amiodarone. Later today can d/c diltiazem if rhythm remains stable.
[2020-06-14] MEDS: Amiodarone 450 MG, Admixture Fee 1 EACH in Dextrose 5% in Water 250 ML IVPB SCH (10:40)
[2020-06-14] MEDS ORDERED: Enoxaparin Sodium 40 MG/0.4 ML SYRINGE SC SCH (10:45)
[2020-06-14] MEDS ORDERED: Polyethylene Glycol 3350 17 GM Packet PO PRN (11:33)
--- NOTE | 2020-06-14 11:38 | PDOC.CPN ---
- Subjective Date: 06/14/20 Time: 08:00 Interval history: The pt seen and examined. No overnight events. No cardiac complaints. - Objective Allergies/Adverse Reactions: Allergies Allergy/AdvReac Type Severity Reaction Status Date / Time Sulfa (Sulfonamide Allergy Verified 05/26/20 01:22 Antibiotics) Visit Medications: Current Medications Acidophilus (Lactinex Tablet) 1 tab PO TID [facility] Last Admin: 06/14/20 08:35 Dose: 1 tab Documented by: Albuterol/Ipratropium (Ipratropium/Albuterol Sulfate 3 Ml Neb) 3 ml NEB [id number] JEEVAN Last Admin: 06/14/20 07:16 Dose: 3 ml Documented by: Bisacodyl (Bisacodyl 10 Mg Supp) 10 mg [place] Q8H PRN PRN Reason: Constipation Last Admin: 06/13/20 18:10 Dose: 10 mg Documented by: Enoxaparin Sodium (Enoxaparin Sodium 40 Mg/0.4 Ml Syringe) 40 mg SC 09 JEEVAN Enoxaparin Sodium (Enoxaparin Sodium 40 Mg/0.4 Ml Syringe) 40 mg SC NOW [facility] Stop: 06/14/20 13:00 Last Admin: 06/14/20 10:40 Dose: 40 mg Documented by: Famotidine (Famotidine 20 Mg Tab) 20 mg PER TUBE Q12HR [facility] Last Admin: 06/14/20 08:36 Dose: 20 mg Documented by: Fentanyl Citrate 2,000 mcg/ (Sodium Chloride) 100 mls @ 0 mls/hr IV INF JEEVAN; Protocol Stop: 07/09/20 13:45 Last Admin: 06/14/20 06:06 Dose: 100 mls Documented by: Fentanyl Citrate (Fentanyl Bolus) 250 mls @ 0 mls/hr IVPB PRN PRN PRN Reason: Breakthrough pain/agitation Stop: 07/09/20 13:45 Meropenem 1 gm/ Device 50 mls @ 100 mls/hr IVPB Q8HR [facility] Last Admin: 06/14/20 05:51 Dose: 50 mls Documented by: Amiodarone HCl 450 mg/Miscellaneous Medication 1 each/ Dextrose/Water 259 mls @ 0 mls/hr IVPB INF JEEVAN; Protocol Last Admin: 06/14/20 10:40 Dose: 259 mls Documented by: Diltiazem HCl 125 mg/Miscellaneous Medication 1 each/ Sodium Chloride 125 mls @ 5 mls/hr IVPB INF JEEVAN; Protocol Last Admin: 06/13/20 16:28 Dose: 125 mls Documented by: Levothyroxine Sodium (Levothyroxine Sodium 100 Mcg Tab) 100 mcg PO 0600 JEEVAN Last Admin: 06/14/20 05:51 Dose: 100 mcg Documented by: Lorazepam (Lorazepam 2 Mg/Ml Vial) 2 mg SLOW IVP Q1H PRN PRN Reason: Breakthrough agitation Stop: 07/09/20 13:45 Last Admin: 06/14/20 08:36 Dose: 2 mg Documented by: Methylprednisolone Sodium Succinate (Methylprednisolone Sod Succ 40 Mg Vial) 40 mg IVP Q6HR JEE[facility]AN Last Admin: 06/14/20 05:51 Dose: 40 mg Documented by: Miscellaneous Medication (Electrolyte Replacement Protocol) 0 each FS ASDIR PRN; Protocol PRN Reason: ELECTROLYTE REPLACEMENT Morphine Sulfate (Morphine 2 Mg/Ml Vial) 2 mg SLOW IVP Q1H PRN PRN Reason: Breakthrough Pain/Agitation Stop: 07/09/20 13:45 Discontinue Previous Narcotic Pain Medications And Benzodiazepines 1 each FS .ONE JEEVAN Stop: 07/09/20 13:45 Polyethylene Glycol (Polyethylene Glycol 3350 17 Gm Packet) 17 gm PO DAILY JEEVAN Polyethylene Glycol (Polyethylene Glycol 3350 17 Gm Packet) 17 gm PO DAILYPRN PRN PRN Reason: Constipation Propofol (Propofol 1,000 Mg/100 Ml Vial) 1,000 mg IV INF PRN; Protocol PRN Reason: TO ACHIEVE GOAL RASS Stop: 07/09/20 13:45 Last Admin: 06/11/20 05:57 Dose: 1,000 mg Documented by: Propofol (Propofol Bolus 1,000 Mg/100 Ml Vial) 20 mg IV Q5MIN PRN PRN Reason: BREAKTHROUGH AGITATION Stop: 07/09/20 13:45 Senna/Docusate Sodium (Senokot S 8.6-50 Mg Tab) 2 tab PO BIDPRN PRN PRN Reason: Constipation Sodium Chloride (Flush - Normal Saline 10 Ml Syringe) 10 ml IVF Q12HR JEEVAN Last Admin: 06/14/20 10:31 Dose: 10 ml Documented by: Sodium Chloride (Flush - Normal Saline 10 Ml Syringe) 10 ml IVF PRN PRN PRN Reason: Saline Flush Vital Signs & Weight: Vital Signs Temp Pulse Resp BP Pulse Ox 06/14/20 10:15 80 06/14/20 10:00 10 L 06/14/20 08:00 98.2 F 14 06/14/20 07:16 68 15 100 06/14/20 07:14 74 06/14/20 06:00 14 06/14/20 04:00 98.4 F 18 06/14/20 02:30 78 140/90 06/14/20 02:00 19 06/14/20 00:00 98.1 F 14 06/13/20 23:46 78 140/79 Admit Weight 162 lb 4.163 oz Weight 176 lb - Physical Exam General: alert & oriented x3 Cardiac: regular rate and rhythm - Labs Result Diagrams: 06/14/20 04:35 06/14/20 04:35 - Telemetry Sinus rhythms and dysrhythmias: sinus rhythm - Assessment/Plan Assessment/Plan: 1. New onset Aflutter with RVR - remains in SR; On Amiodarone and diltiazem drip; Eliquis is on hold due to plan for PEG tube placement; not on Lovenox for now due to low Hgb level; 2. Parox Afib - remains in SR; Will start Bblocker once her VS is more stable; 3. Acute respiratory failure with hypoxia - she was reintubated due to worsening of OLIVO. Plan for tracheostomy? 4. PNA - possible 2/2 aspiration PNA - plan for PEG placement? 5. Hypothyroidism 6. Quadriplegia MAR reviewed * Dr Crump pt pt. seen and eval. by me. I agree with the A/P by the [employer]. She is sedated and intubated at this time. Chest: coarse rales, RRR - sinus. Minimal edema. Plan is to see how she does over the weekend and discuss pts' wishes on Wednesday as to whether she wants a tracheostomy and PEG tube. The atrial fibrillation converted to NSR and she remains in sinus with a stable HR and BP. kurt
[2020-06-14] MEDS: Bisacodyl 10 MG SUPP PR PRN (16:24)
--- NOTE | 2020-06-14 16:28 | PDOC.HOSPP ---
- Subjective Encounter Date: 06/14/20 Encounter Time: 10:30 Subjective: pt intubated but arousable and follows command. - Objective Vital Signs & Weight: Vital Signs (12 hours) Temp Pulse Resp Pulse Ox 06/14/20 14:00 11 L 06/14/20 13:11 60 13 97 06/14/20 13:00 11 L 06/14/20 12:00 97.2 F L 10 L 06/14/20 10:15 80 06/14/20 10:00 10 L 06/14/20 08:00 98.2 F 14 100 06/14/20 07:16 68 15 100 06/14/20 07:14 74 06/14/20 06:00 14 Weight Admit Weight 162 lb 4.163 oz Weight 176 lb Most Recent Monitor Data Heart Rate from ECG 70 NIBP 129/65 NIBP BP-Mean 76 Respiration from ECG 20 SpO2 98 I&O: 06/13/20 06/14/20 06/15/20 06:59 06:59 06:59 Intake Total 2247 1751.6 210 Output Total 3440 2035 408 Balance -1193 -283.4 -198 Result Diagrams: 06/14/20 04:35 06/14/20 04:35 Hospitalist ROS - Review of Systems Other: pt intubated - Medication Medications: Active Medications Generic Name Dose Route Start Last Admin Trade Name Freq PRN Reason Stop Dose Admin Acidophilus 1 tab 06/09/20 15:00 06/14/20 14:56 Lactinex Tablet PO 1 tab TID JEEVAN Administration Albuterol/Ipratropium 3 ml 06/10/20 13:00 06/14/20 13:11 Ipratropium/Albuterol Sulfate 3 Ml Neb NEB 3 ml [id number] JEEVAN Administration Bisacodyl 10 mg 06/09/20 17:59 06/14/20 16:24 Bisacodyl 10 Mg Supp [place] 10 mg Q8H PRN Administration Constipation Famotidine 20 mg 06/13/20 21:00 06/14/20 08:36 Famotidine 20 Mg Tab PER TUBE 20 mg Q12HR JEEVAN Administration Fentanyl Citrate 2,000 mcg/ 100 mls @ 0 mls/hr 06/09/20 13:45 06/14/20 06:06 Sodium Chloride IV 07/09/20 13:45 100 mls INF JEEVAN Administration Protocol Per Protocol Meropenem 1 gm/ Device 50 mls @ 100 mls/hr 06/10/20 22:00 06/14/20 13:46 IVPB 50 mls Q8HR JEEVAN Administration Amiodarone HCl 450 mg/ 259 mls @ 0 mls/hr 06/11/20 01:30 06/14/20 10:40 Miscellaneous Medication 1 IVPB 259 mls each/ Dextrose/Water INF JEEVAN Administration Protocol As Directed Levothyroxine Sodium 100 mcg 06/13/20 06:00 06/14/20 05:51 Levothyroxine Sodium 100 Mcg Tab PO 100 mcg 0600 JEEVAN Administration Lorazepam 2 mg 06/09/20 13:45 06/14/20 08:36 Lorazepam 2 Mg/Ml Vial SLOW IVP 07/09/20 13:45 2 mg Q1H PRN Administration Breakthrough agitation Methylprednisolone Sodium Succinate 40 mg 06/13/20 12:00 06/14/20 12:21 Methylprednisolone Sod Succ 40 Mg Vial IVP 40 mg Q6HR JEEVAN Administration Propofol 1,000 mg 06/09/20 13:45 06/11/20 05:57 Propofol 1,000 Mg/100 Ml Vial IV 07/09/20 13:45 1,000 mg INF PRN Administration TO ACHIEVE GOAL RASS Protocol Sodium Chloride 10 ml 06/13/20 09:00 06/14/20 10:31 Flush - Normal Saline 10 Ml Syringe IVF 10 ml Q12HR JEEVAN Administration - Exam Heart: negative: RRR, no murmur, no gallops, no rubs, normal peripheral pulses, irregular, diminshed peripheral pulses, murmur present, II/IV, III/IV Respiratory: negative: CTAB, no wheezes, no rales, no ronchi, normal chest expansion, no tachypnea, normal percussion, rales, rhonchi, tachypneic, wheezes Gastrointestinal: negative: soft, non-tender, non-distended, normal bowel sounds, no palpable masses, no hepatomegaly, no splenomegaly, no bruit, no guarding, no rigidity, tender to palpation, distended, diminished bowl sounds, voluntary guarding Hosp A/P (1) Acute respiratory failure with hypoxia Code(s): J96.01 - ACUTE RESPIRATORY FAILURE WITH HYPOXIA Status: Acute (2) Hypokalemia Code(s): E87.6 - HYPOKALEMIA Status: Acute (3) Pneumonia Code(s): J18.9 - PNEUMONIA, UNSPECIFIED ORGANISM Status: Acute (4) Atrial fibrillation Code(s): I48.91 - UNSPECIFIED ATRIAL FIBRILLATION Status: Chronic Qualifiers: (5) Hypothyroidism Code(s): E03.9 - HYPOTHYROIDISM, UNSPECIFIED Status: Chronic (6) Quadriplegia Code(s): G82.50 - QUADRIPLEGIA, UNSPECIFIED Status: Chronic - Plan will continue abx. she is more awake today and follows. cx negative. will re place electrolytes. 06/11 will continue abx for now. pt extubated doing well. she has agreed on peg tube since pt is aspirating. 06/12 pt has worsening cxr. she was reintubated. pt will most likely trach and peg. I did speak with pt's caregiver emmy and updated her. I also educated her that getting trach and peg will not prevent aspiration she can still aspirate. will continue abx. pt on AC for afib. pt was on iv amio for afib rvr 06/13 pt awake and follows command. she is on AC. she is on diltiazem and amio. pt will need trach and peg. 06/14 pt now in SR, i was told by the nurse that now the pt is having second thoughts about undergoing trach and peg. pt on lovenox for now. pt has not had a bm will start miralax. pt at home has to get suppository. I have asked the nurse to do so.
[2020-06-15] MEDS: fentaNYL Citrate/PF 2,000 MCG in Sodium Chloride 0.9% 60 ML IV SCH ×2 (00:15→21:35)
[2020-06-15] MEDS: methylPREDNISolone Sod Succ 40 MG VIAL IVP SCH ×5 (00:17→23:15)
[2020-06-15] MEDS: Amiodarone 450 MG, Admixture Fee 1 EACH in Dextrose 5% in Water 250 ML IVPB SCH (03:42)
[2020-06-15] MEDS: Lorazepam 2 MG/ML VIAL SLOW IVP PRN ×3 (04:08→23:16)
[2020-06-15 05:25] LABS: #Lymphocytes 0.5 thou/uL (1.20-3.40); #Monocytes 0.3 thou/uL (0.11-0.59); %Eosinophils 0.2 % (0.0-10.0); %Lymphocytes 6.1 % (21.0-51.0); %Monocytes 3.2 % (0.0-10.0); %Neutrophils 90.5 % (42.0-75.0); Hemoglobin 8.6 g/dL (12.0-16.0); Mean Corpuscular HGB CONC 32.4 g/dL (32.0-36.0); Mean Corpuscular Hemoglobin 30.8 pg (27.0-31.0); Mean Corpuscular Volume 94.9 fL (78.0-98.0); Mean Platelet Volume 7.7 fL (7.4-10.4); Platelet Count 304 thou/uL (130-400); RBC Distribution Width 16.1 % (11.5-14.5); Red Blood Cell (RBC) Count 2.77 mill/uL (4.20-5.40); White Blood Cell (WBC) Count 7.7 thou/uL (4.8-10.8)
[2020-06-15 05:43] LABS: ALT (SGPT) 33 U/L (8-55); AST (SGOT) 25 U/L (5-34); Albumin 3.8 g/dL (3.4-4.8); Alkaline Phosphatase 92 U/L (40-110); Anion Gap 11 mmol/L (10-20); BUN (Urea Nitrogen) 18 mg/dL (9.8-20.1); Calc. Creatinine Clearance 158 mL/min (70-130); Calcium 9.4 mg/dL (7.8-10.44); Carbon Dioxide 31 mmol/L (23-31); Chloride 106 mmol/L (98-107); Estimated GFR-MDRD Greater than 90; Globulin 2.9 g/dL (2.4-3.5); Glucose 209 mg/dL (80-115); Potassium 3.3 mmol/L (3.5-5.1); Protein, Total 6.7 g/dL (6.0-8.3); Sodium 145 mmol/L (136-145)
[2020-06-15] MEDS: Levothyroxine Sodium 100 MCG TAB PO SCH (05:53)
[2020-06-15] MEDS: MEROPENEM 1 GM/50 ML 1 GM in Premix Bag 1 BAG IVPB SCH ×3 (05:53→21:02)
[2020-06-15] MEDS ORDERED: Potassium Chloride 40 MEQ in Sodium Chloride 0.9% 250 ML 250 ML IVPB SCH (06:45)
[2020-06-15 07:30] LABS: Actual Bicarbonate (HCO3a) 29.6 mEq/L (22-28); Base Excess (BEa) 3.5 mEq/L (-2.0 to +3.0); CO2 Tension 52.3 mmHg (35.0-45.0); Calcium, Ionized (arterial) 1.28 mmol/L (1.12-1.30); Carboxyhemoglobin (COHb) 0.6 gm% (0.0-3.0); Hemoglobin (Hb) 11.1 g/dL (12.0-16.0); O2 Tension (PaO2), arterial 93.8 mmHg (> 80.0); Potassium - ABG Lab 2.95 mmol/L (3.70-5.30); pH, Arterial 7.37 (7.35-7.45)
[2020-06-15 07:56] LABS: ALV-art Gradient 126.025 mmHg (0-20); Puncture Site RRAD
[2020-06-15] MEDS: Lactinex Tablet PO SCH ×3 (08:36→21:02)
[2020-06-15] MEDS: Polyethylene Glycol 3350 17 GM Packet PO SCH (08:36)
[2020-06-15] MEDS: Enoxaparin Sodium 40 MG/0.4 ML SYRINGE SC SCH (08:36)
[2020-06-15] MEDS: Famotidine 20 MG TAB PER TUBE SCH ×2 (08:36→21:02)
--- NOTE | 2020-06-15 10:14 | RAD ---
CHEST 1 VIEW: Date: 06/15/2020 INDICATION: 64-year-old female with intubation. COMPARISON: Prior exam dated 06/14/2020. FINDINGS: ET tube is unchanged. Gastric catheter is again seen, terminating in the region of the distal esophag us. Recommend consideration for advancement. Cardiomegaly persists. Pulmonary vascular congestion per sists. Infrahilar air space opacity is similar appearing. No pneumothorax is evident. IMPRESSION: 1. Stable exam. Recommend consideration for advancement of the gastric catheter. 2. Stable bilateral air space disease, cardiomegaly, and pulmonary vascular congestion. POS: BH
--- NOTE | 2020-06-15 13:02 | PDOC.HOSPP ---
- Subjective Encounter Date: 06/15/20 Encounter Time: 09:00 Subjective: pt intubated - Objective Vital Signs & Weight: Vital Signs (12 hours) Temp Pulse Resp Pulse Ox 06/15/20 12:00 98.9 F 10 L 06/15/20 11:56 54 L 13 98 06/15/20 10:17 63 06/15/20 10:00 13 06/15/20 08:00 10 L 06/15/20 07:57 55 L 06/15/20 07:56 61 14 97 06/15/20 07:12 100 06/15/20 07:00 98.8 F 06/15/20 06:00 10 L 06/15/20 04:00 98.1 F 10 L 06/15/20 02:00 10 L Weight Admit Weight 162 lb 4.163 oz Weight 176 lb 3.2 oz Most Recent Monitor Data Heart Rate from ECG 52 NIBP 170/94 NIBP BP-Mean 106 Respiration from ECG 10 SpO2 99 I&O: 06/14/20 06/15/20 06/16/20 06:59 06:59 06:59 Intake Total 1751.6 2246 180 Output Total 2035 1118 360 Balance -283.4 1128 -180 Result Diagrams: 06/15/20 05:10 06/15/20 05:10 Hospitalist ROS - Review of Systems Other: pt intubated - Medication Medications: Active Medications Generic Name Dose Route Start Last Admin Trade Name Freq PRN Reason Stop Dose Admin Acidophilus 1 tab 06/09/20 15:00 06/15/20 08:36 Lactinex Tablet PO 1 tab TID JEEVAN Administration Albuterol/Ipratropium 3 ml 06/10/20 13:00 06/15/20 11:56 Ipratropium/Albuterol Sulfate 3 Ml Neb NEB 3 ml [id number] JEEVAN Administration Bisacodyl 10 mg 06/09/20 17:59 06/14/20 16:24 Bisacodyl 10 Mg Supp [place] 10 mg Q8H PRN Administration Constipation Enoxaparin Sodium 40 mg 06/15/20 09:00 06/15/20 08:36 Enoxaparin Sodium 40 Mg/0.4 Ml Syringe SC 40 mg 0900 JEEVAN Administration Famotidine 20 mg 06/13/20 21:00 06/15/20 08:36 Famotidine 20 Mg Tab PER TUBE 20 mg Q12HR JEEVAN Administration Fentanyl Citrate 2,000 mcg/ 100 mls @ 0 mls/hr 06/09/20 13:45 06/15/20 00:15 Sodium Chloride IV 07/09/20 13:45 100 mls INF JEEVAN Administration Protocol Per Protocol Meropenem 1 gm/ Device 50 mls @ 100 mls/hr 06/10/20 22:00 06/15/20 05:53 IVPB 50 mls Q8HR JEEVAN Administration Amiodarone HCl 450 mg/ 259 mls @ 0 mls/hr 06/11/20 01:30 06/15/20 03:42 Miscellaneous Medication 1 IVPB 259 mls each/ Dextrose/Water INF JEEVAN Administration Protocol As Directed Levothyroxine Sodium 100 mcg 06/13/20 06:00 06/15/20 05:53 Levothyroxine Sodium 100 Mcg Tab PO 100 mcg 0600 JEEVAN Administration Lorazepam 2 mg 06/09/20 13:45 06/15/20 07:36 Lorazepam 2 Mg/Ml Vial SLOW IVP 07/09/20 13:45 2 mg Q1H PRN Administration Breakthrough agitation Methylprednisolone Sodium Succinate 40 mg 06/13/20 12:00 06/15/20 11:31 Methylprednisolone Sod Succ 40 Mg Vial IVP 40 mg Q6HR JEEVAN Administration Polyethylene Glycol 17 gm 06/15/20 09:00 06/15/20 08:36 Polyethylene Glycol 3350 17 Gm Packet PO 17 gm DAILY JEEVAN Administration Propofol 1,000 mg 06/09/20 13:45 06/11/20 05:57 Propofol 1,000 Mg/100 Ml Vial IV 07/09/20 13:45 1,000 mg INF PRN Administration TO ACHIEVE GOAL RASS Protocol Sodium Chloride 10 ml 06/13/20 09:00 06/15/20 08:36 Flush - Normal Saline 10 Ml Syringe IVF 10 ml Q12HR JEEVAN Administration - Exam Heart: negative: RRR, no murmur, no gallops, no rubs, normal peripheral pulses, irregular, diminshed peripheral pulses, murmur present, II/IV, III/IV Respiratory: negative: CTAB, no wheezes, no rales, no ronchi, normal chest expansion, no tachypnea, normal percussion, rales, rhonchi, tachypneic, wheezes Gastrointestinal: negative: soft, non-tender, non-distended, normal bowel sounds, no palpable masses, no hepatomegaly, no splenomegaly, no bruit, no guarding, no rigidity, tender to palpation, distended, diminished bowl sounds, voluntary guarding Extremities: 1+ LE edema Hosp A/P (1) Acute respiratory failure with hypoxia Code(s): J96.01 - ACUTE RESPIRATORY FAILURE WITH HYPOXIA Status: Acute (2) Hypokalemia Code(s): E87.6 - HYPOKALEMIA Status: Acute (3) Pneumonia Code(s): J18.9 - PNEUMONIA, UNSPECIFIED ORGANISM Status: Acute (4) Atrial fibrillation Code(s): I48.91 - UNSPECIFIED ATRIAL FIBRILLATION Status: Chronic Qualifiers: (5) Hypothyroidism Code(s): E03.9 - HYPOTHYROIDISM, UNSPECIFIED Status: Chronic (6) Quadriplegia Code(s): G82.50 - QUADRIPLEGIA, UNSPECIFIED Status: Chronic (7) Aspiration pneumonia Code(s): J69.0 - PNEUMONITIS DUE TO INHALATION OF FOOD AND VOMIT Status: Acute - Plan will continue abx. she is more awake today and follows. cx negative. will replace electrolytes. 06/11 will continue abx for now. pt extubated doing well. she has agreed on peg tube since pt is aspirating. 06/12 pt has worsening cxr. she was reintubated. pt will most likely trach and peg. I did speak with pt's caregiver emmy and updated her. I also educated her that getting trach and peg will not prevent aspiration she can still aspirate. will continue abx. pt on AC for afib. pt was on iv amio for afib rvr 06/13 pt awake and follows command. she is on AC. she is on diltiazem and amio. pt will need trach and peg. 06/14 pt now in SR, i was told by the nurse that now the pt is having second thoughts about undergoing trach and peg. pt on lovenox for now. pt has not had a bm will start miralax. pt at home has to get suppository. I have asked the nurse to do so. 06/15 pt's amiodaorone was stopped due to bradycardia. pt's POA to come to talk about possible trach/peg vs hospice. will continue abx for now. pt tolerating tube feedings. Asked nursing staff to advance NG tube. will give one dose of lasix. pt was on eliquis for afib but this has been stopped by pulmonary and she is only on dvt ppx. If they do peg/trach may resume eliquis after.
[2020-06-15] MEDS ORDERED: Furosemide 20 MG/2 ML VIAL SLOW IVP SCH (13:15)
--- NOTE | 2020-06-15 14:24 | PRG ---
DATE OF SERVICE: 06/15/2020 SUBJECTIVE: Mary Alice Mai remains stable. My associate said that decisions would be made on Wednesday regarding tracheostomy. OBJECTIVE: VITAL SIGNS: She is afebrile. Heart rate is in 70s, blood pressure 170/94. LUNGS: Clear. HEART: Regular rhythm. ABDOMEN: Soft. EXTREMITIES: Without edema. LABORATORY DATA: White count 7.7, hemoglobin 8.6, platelets 304. Sodium 145, potassium 3.3, chloride 106, bicarb 31, BUN 18, creatinine 0.46. Chest x-ray is unchanged. IMPRESSION: 1. Respiratory failure associated with pneumonia. 2. Quadriplegia. I am told the hospitalist discussed tracheostomy with her and she stated she did not want a tracheostomy. It is not clear to me whether or not she was told that she would pass away if she did not have a tracheostomy. Per my associate, these decisions will be made on Wednesday. We will continue to follow. As long as she is ventilated, she will likely continue to be stable. Job ID: [id number]
[2020-06-16 04:18] LABS: #Lymphocytes 0.4 thou/uL (1.20-3.40); #Monocytes 0.5 thou/uL (0.11-0.59); #Neutrophils 6.2 thou/uL (1.40-6.50); %Eosinophils 0.3 % (0.0-10.0); %Lymphocytes 5.6 % (21.0-51.0); %Monocytes 6.4 % (0.0-10.0); %Neutrophils 87.8 % (42.0-75.0); Hemoglobin 9.3 g/dL (12.0-16.0); Mean Corpuscular HGB CONC 32.1 g/dL (32.0-36.0); Mean Corpuscular Hemoglobin 30.6 pg (27.0-31.0); Mean Corpuscular Volume 95.3 fL (78.0-98.0); Mean Platelet Volume 7.5 fL (7.4-10.4); Platelet Count 387 thou/uL (130-400); RBC Distribution Width 16.3 % (11.5-14.5); Red Blood Cell (RBC) Count 3.03 mill/uL (4.20-5.40)
[2020-06-16 04:38] LABS: ALT (SGPT) 37 U/L (8-55); AST (SGOT) 20 U/L (5-34); Albumin 3.9 g/dL (3.4-4.8); Alkaline Phosphatase 101 U/L (40-110); Anion Gap 12 mmol/L (10-20); BUN (Urea Nitrogen) 23 mg/dL (9.8-20.1); Calc. Creatinine Clearance 137 mL/min (70-130); Calcium 9.6 mg/dL (7.8-10.44); Carbon Dioxide 32 mmol/L (23-31); Chloride 104 mmol/L (98-107); Estimated GFR-MDRD Greater than 90; Globulin 2.7 g/dL (2.4-3.5); Glucose 212 mg/dL (80-115); Potassium 3.1 mmol/L (3.5-5.1); Protein, Total 6.6 g/dL (6.0-8.3); Sodium 145 mmol/L (136-145)
[2020-06-16] MEDS: Levothyroxine Sodium 100 MCG TAB PO SCH (04:54)
[2020-06-16] MEDS ORDERED: Potassium Chloride 40 MEQ in Premix Bag 1 BAG IVPB SCH (05:00)
[2020-06-16] MEDS: MEROPENEM 1 GM/50 ML 1 GM in Premix Bag 1 BAG IVPB SCH ×3 (05:12→21:21)
[2020-06-16] MEDS: methylPREDNISolone Sod Succ 40 MG VIAL IVP SCH ×4 (05:13→23:00)
[2020-06-16] MEDS ORDERED: Potassium Chloride 40 MEQ in Sodium Chloride 0.9% 250 ML 250 ML IVPB SCH (05:45)
[2020-06-16] MEDS ORDERED: Levothyroxine 100 MCG SDV IVP SCH (06:00)
[2020-06-16 06:45] LABS: Actual Bicarbonate (HCO3a) 33.5 mEq/L (22-28); Base Excess (BEa) 7.8 mEq/L (-2.0 to +3.0); CO2 Tension 53.2 mmHg (35.0-45.0); Calcium, Ionized (arterial) 1.26 mmol/L (1.12-1.30); Carboxyhemoglobin (COHb) 0.7 gm% (0.0-3.0); Hemoglobin (Hb) 10.5 g/dL (12.0-16.0); O2 Tension (PaO2), arterial 77.4 mmHg (> 80.0); Potassium - ABG Lab 3.14 mmol/L (3.70-5.30); pH, Arterial 7.42 (7.35-7.45)
[2020-06-16] MEDS: Lorazepam 2 MG/ML VIAL SLOW IVP PRN ×3 (07:03→16:35)
[2020-06-16 07:18] LABS: Puncture Site RRAD
[2020-06-16] MEDS: Famotidine 20 MG TAB PER TUBE SCH ×2 (08:35→20:34)
[2020-06-16] MEDS: Enoxaparin Sodium 40 MG/0.4 ML SYRINGE SC SCH (08:35)
[2020-06-16] MEDS: Polyethylene Glycol 3350 17 GM Packet PO SCH (08:35)
[2020-06-16] MEDS: Lactinex Tablet PO SCH ×3 (08:35→20:34)
--- NOTE | 2020-06-16 09:26 | PDOC.HOSPP ---
- Subjective Encounter Date: 06/16/20 Encounter Time: 08:50 Subjective: Patient seen and examined. Patient is intubated and sedated, no overnight events - Objective Vital Signs & Weight: Vital Signs (12 hours) Temp Pulse Resp Pulse Ox 06/16/20 08:00 10 L 06/16/20 07:16 56 L 10 L 100 06/16/20 07:09 969 H 06/16/20 07:00 97.7 F 06/16/20 06:00 13 06/16/20 04:00 97.8 F 12 06/16/20 02:00 12 06/16/20 00:19 60 10 L 98 06/16/20 00:00 98.2 F 12 06/15/20 22:00 12 Weight Admit Weight 162 lb 4.163 oz Weight 176 lb 8 oz Most Recent Monitor Data Heart Rate from ECG 59 NIBP 114/72 NIBP BP-Mean 94 Respiration from ECG 15 SpO2 98 I&O: 06/15/20 06/16/20 06/17/20 06:59 06:59 06:59 Intake Total 2246 2520 60 Output Total 1118 3265 117 Balance 1128 -745 -57 Result Diagrams: 06/16/20 04:10 06/16/20 04:10 Radiology Reviewed by me: Yes EKG Reviewed by me: Yes Hospitalist ROS - Review of Systems ROS unobtainable: due to endotracheal tube - Medication Medications: Active Medications Generic Name Dose Route Start Last Admin Trade Name Freq PRN Reason Stop Dose Admin Acidophilus 1 tab 06/09/20 15:00 06/16/20 08:35 Lactinex Tablet PO 1 tab TID JEEVAN Administration Albuterol/Ipratropium 3 ml 06/10/20 13:00 06/16/20 07:16 Ipratropium/Albuterol Sulfate 3 Ml Neb NEB 3 ml [id number] JEEVAN Administration Bisacodyl 10 mg 06/09/20 17:59 06/14/20 16:24 Bisacodyl 10 Mg Supp SD 10 mg Q8H PRN Administration Constipation Enoxaparin Sodium 40 mg 06/15/20 09:00 06/16/20 08:35 Enoxaparin Sodium 40 Mg/0.4 Ml Syringe SC 40 mg 0900 JEEVAN Administration Famotidine 20 mg 06/13/20 21:00 06/16/20 08:35 Famotidine 20 Mg Tab PER TUBE 20 mg Q12HR JEEVAN Administration Fentanyl Citrate 2,000 mcg/ 100 mls @ 0 mls/hr 06/09/20 13:45 06/15/20 21:35 Sodium Chloride IV 07/09/20 13:45 100 mls INF JEEVAN Administration Protocol Per Protocol Meropenem 1 gm/ Device 50 mls @ 100 mls/hr 06/10/20 22:00 06/16/20 05:12 IVPB 50 mls Q8HR JEEVAN Administration Amiodarone HCl 450 mg/ 259 mls @ 0 mls/hr 06/11/20 01:30 06/15/20 03:42 Miscellaneous Medication 1 IVPB 259 mls each/ Dextrose/Water INF JEEVAN Administration Protocol As Directed Levothyroxine Sodium 100 mcg 06/13/20 06:00 06/16/20 04:54 Levothyroxine Sodium 100 Mcg Tab PO 100 mcg 0600 JEEVAN Administration Lorazepam 2 mg 06/09/20 13:45 06/16/20 07:03 Lorazepam 2 Mg/Ml Vial SLOW IVP 07/09/20 13:45 2 mg Q1H PRN Administration Breakthrough agitation Methylprednisolone Sodium Succinate 40 mg 06/13/20 12:00 06/16/20 05:13 Methylprednisolone Sod Succ 40 Mg Vial IVP 40 mg Q6HR JEEVAN Administration Polyethylene Glycol 17 gm 06/15/20 09:00 06/16/20 08:35 Polyethylene Glycol 3350 17 Gm Packet PO 17 gm DAILY JEEVAN Administration Propofol 1,000 mg 06/09/20 13:45 06/11/20 05:57 Propofol 1,000 Mg/100 Ml Vial IV 07/09/20 13:45 1,000 mg INF PRN Administration TO ACHIEVE GOAL RASS Protocol Sodium Chloride 10 ml 06/13/20 09:00 06/16/20 08:35 Flush - Normal Saline 10 Ml Syringe IVF 10 ml Q12HR JEEVAN Administration - Exam General Appearance: NAD, ill appearing Eye: PERRL ENT: normocephalic atraumatic Neck: symmetric, no JVD Heart: RRR, no murmur, no gallops Respiratory - other findings: Bilateral coarse sound Gastrointestinal: soft, non-distended, normal bowel sounds Extremities: 1+ LE edema Hosp A/P (1) Aspiration pneumonia Code(s): J69.0 - PNEUMONITIS DUE TO INHALATION OF FOOD AND VOMIT Status: Acute (2) Atrial flutter Code(s): I48.92 - UNSPECIFIED ATRIAL FLUTTER Status: Acute (3) Acute respiratory failure with hypoxia Code(s): J96.01 - ACUTE RESPIRATORY FAILURE WITH HYPOXIA Status: Acute (4) Bradycardia Code(s): R00.1 - BRADYCARDIA, UNSPECIFIED Status: Acute (5) Encephalopathy Code(s): G93.40 - ENCEPHALOPATHY, UNSPECIFIED Status: Acute (6) Heart failure Code(s): I50.9 - HEART FAILURE, UNSPECIFIED Status: Acute Qualifiers: Heart failure type: diastolic Heart failure chronicity: acute on chronic Qualified Code(s): I50.33 - Acute on chronic diastolic (congestive) heart failure (7) Sepsis Code(s): A41.9 - SEPSIS, UNSPECIFIED ORGANISM Status: Acute Qualifiers: Acute respiratory failure type: with hypoxia (8) Chronic hyponatremia Code(s): E87.1 - HYPO-OSMOLALITY AND HYPONATREMIA Status: Chronic (9) Chronic indwelling Lozoya catheter Code(s): Z97.8 - PRESENCE OF OTHER SPECIFIED DEVICES Status: Chronic (10) Hypothyroidism Code(s): E03.9 - HYPOTHYROIDISM, UNSPECIFIED Status: Chronic (11) Normocytic anemia Code(s): D64.9 - ANEMIA, UNSPECIFIED Status: Chronic (12) Quadriplegia Code(s): G82.50 - QUADRIPLEGIA, UNSPECIFIED Status: Chronic - Plan old records reviewed/req, respiratory therapy Plan Continue amiodarone drip Continue meropenem Continue Solu-Medrol Ventilator management as per pulmonology Plan for possible tracheostomy next week Prognosis poor
[2020-06-16] MEDS: Amiodarone 450 MG, Admixture Fee 1 EACH in Dextrose 5% in Water 250 ML IVPB SCH (11:45)
--- NOTE | 2020-06-16 12:47 | EKG ---
Test Reason : STAT Blood Pressure : / mmHG Vent. Rate : 131 BPM Atrial Rate : 300 BPM P-R Int : 000 ms QRS Dur : 096 ms QT Int : 300 ms P-R-T Axes : 089 -62 092 degrees QTc Int : 443 ms Atrial flutter with variable A-V block Left axis deviation Pulmonary disease pattern Septal infarct , age undetermined Abnormal ECG No previous ECGs available Confirmed by PARMINDER CHAUDHARY, REBECA ([id number]) on 06/16/2020 12:47:05 PM Referred By: ANA Confirmed By:REBECA ZURITA MD
--- NOTE | 2020-06-16 14:53 | PRG ---
DATE OF SERVICE: 06/16/2020 SUBJECTIVE: Ms. Mai has communicated that she does not want a tracheostomy. She also communicated that she is not ready to pass away. A decision will be made tomorrow when Dr. Yepez returns, but it sounds like she will need a trach and a PEG. OBJECTIVE: VITAL SIGNS: Heart rates in the 50s, respiratory rates in the teens, oximetry is 98, FiO2 is at 40%, blood pressure 145/85. LUNGS: Clear anteriorly. HEART: Regular rhythm. ABDOMEN: Soft. EXTREMITIES: Contracted. LABORATORY DATA: White count 7, hemoglobin 9.3, and platelets 387. Sodium 145, potassium 3.1, chloride 104, bicarb 32, BUN 23, creatinine 0.53. PH 7.42, CO2 of 53, pO2 of 77. IMPRESSION: 1. Chronic hypoventilation secondary to her bedridden state with quadriplegia. 2. History of atrial fibrillation. I think tracheostomy and feeding tube would be the next step. She is stable at this time while she is ventilated, but has already failed one extubation attempt. Job ID: [id number]
[2020-06-16] MEDS: fentaNYL Citrate/PF 2,000 MCG in Sodium Chloride 0.9% 60 ML IV SCH (15:08)
[2020-06-17] MEDS: Amiodarone 450 MG, Admixture Fee 1 EACH in Dextrose 5% in Water 250 ML IVPB SCH (00:47)
[2020-06-17 05:24] LABS: ALT (SGPT) 42 U/L (8-55); AST (SGOT) 26 U/L (5-34); Albumin 3.6 g/dL (3.4-4.8); Alkaline Phosphatase 99 U/L (40-110); Anion Gap 12 mmol/L (10-20); BUN (Urea Nitrogen) 30 mg/dL (9.8-20.1); Bilirubin, Total 0.9 mg/dL (0.2-1.2); Calc. Creatinine Clearance 144 mL/min (70-130); Calcium 9.3 mg/dL (7.8-10.44); Carbon Dioxide 31 mmol/L (23-31); Chloride 106 mmol/L (98-107); Estimated GFR-MDRD Greater than 90; Globulin 2.5 g/dL (2.4-3.5); Glucose 244 mg/dL (80-115); Potassium 4.4 mmol/L (3.5-5.1); Protein, Total 6.1 g/dL (6.0-8.3); Sodium 145 mmol/L (136-145)
[2020-06-17] MEDS: methylPREDNISolone Sod Succ 40 MG VIAL IVP SCH ×4 (05:30→23:59)
[2020-06-17] MEDS: MEROPENEM 1 GM/50 ML 1 GM in Premix Bag 1 BAG IVPB SCH ×3 (05:30→22:18)
[2020-06-17] MEDS: Levothyroxine Sodium 100 MCG TAB PO SCH (05:30)
[2020-06-17 05:42] LABS: Mean Corpuscular HGB CONC 31.8 g/dL (32.0-36.0); Mean Corpuscular Hemoglobin 30.7 pg (27.0-31.0); Mean Corpuscular Volume 96.5 fL (78.0-98.0); Mean Platelet Volume 7.9 fL (7.4-10.4); Platelet Count 423 thou/uL (130-400); RBC Distribution Width 16.4 % (11.5-14.5); Red Blood Cell (RBC) Count 2.94 mill/uL (4.20-5.40); White Blood Cell (WBC) Count 6.9 thou/uL (4.8-10.8)
[2020-06-17 05:49] LABS: Band 19 % (5-11); Lymphocytes 3 % (21-51); MDiff Complete? YES; Metamyelocyte 1 % (0-0); Monocytes 3 % (0-10); Myelocyte 2 % (0-0); Neutrophil 72 % (42-75)
[2020-06-17 07:37] LABS: Actual Bicarbonate (HCO3a) 29.7 mEq/L (22-28); Base Excess (BEa) 5.7 mEq/L (-2.0 to +3.0); CO2 Tension 40.9 mmHg (35.0-45.0); Calcium, Ionized (arterial) 1.24 mmol/L (1.12-1.30); Carboxyhemoglobin (COHb) 1.1 gm% (0.0-3.0); Hemoglobin (Hb) 9.4 g/dL (12.0-16.0); O2 Tension (PaO2), arterial 73.9 mmHg (> 80.0); Potassium - ABG Lab 4.47 mmol/L (3.70-5.30); pH, Arterial 7.48 (7.35-7.45)
[2020-06-17 09:04] LABS: Puncture Site RR
[2020-06-17 09:05] LABS: ALV-art Gradient 160.175 mmHg (0-20)
[2020-06-17] MEDS: Famotidine 20 MG TAB PER TUBE SCH ×2 (09:06→20:07)
[2020-06-17] MEDS: Enoxaparin Sodium 40 MG/0.4 ML SYRINGE SC SCH (09:06)
[2020-06-17] MEDS: Polyethylene Glycol 3350 17 GM Packet PO SCH (09:06)
[2020-06-17] MEDS: Lactinex Tablet PO SCH ×3 (09:06→20:07)
--- NOTE | 2020-06-17 09:47 | PRG ---
DATE OF SERVICE: SUBJECTIVE: Mary Alice Mai is awake. We discussed tracheostomy. She said she is willing to undergo tracheostomy after it was explained to her that she would not survive without it. There is no guarantee she will survive with it. OBJECTIVE: VITAL SIGNS: Heart rate is in the 60s, blood pressure 130/76, respiratory rate is 20, oximetry is 95. LUNGS: Clear. HEART: Regular rhythm. ABDOMEN: Soft. EXTREMITIES: Unchanged. LABORATORY DATA: White count 6.9, hemoglobin 9, platelets 423. Sodium 145, potassium 4.4, chloride 106, bicarb 31, BUN 30, creatinine 0.51. IMPRESSION: Respiratory failure secondary to quadriplegia, chronic muscle weakness. Consultation will be placed if family agrees. I do feel she is competent to make this decision. Job ID: [id number]
--- NOTE | 2020-06-17 13:09 | PDOC.HOSPP ---
- Subjective Encounter Date: 06/17/20 Encounter Time: 12:25 Subjective: on vent, awakens easily - Objective Vital Signs & Weight: Vital Signs (12 hours) Temp Pulse Resp BP Pulse Ox 06/17/20 12:00 22 H 06/17/20 11:38 58 L 16 98 06/17/20 11:35 59 L 175/94 H 06/17/20 10:00 12 06/17/20 08:00 98.5 F 15 99 06/17/20 07:10 59 L 16 98 06/17/20 07:07 57 L 153/74 H 06/17/20 06:00 10 L 06/17/20 04:00 97.1 F L 10 L 06/17/20 02:00 10 L Weight Admit Weight 162 lb 4.163 oz Weight 178 lb 2.136 oz Most Recent Monitor Data Heart Rate from ECG 66 NIBP 121/80 NIBP BP-Mean 95 Respiration from ECG 15 SpO2 86 I&O: 06/16/20 06/17/20 06/18/20 06:59 06:59 06:59 Intake Total 2520 2567 80 Output Total 3265 1027 400 Balance -745 1540 -320 Result Diagrams: 06/17/20 04:00 06/17/20 04:00 Hospitalist ROS - Medication Medications: Active Medications Generic Name Dose Route Start Last Admin Trade Name Freq PRN Reason Stop Dose Admin Acidophilus 1 tab 06/09/20 15:00 06/17/20 09:06 Lactinex Tablet PO 1 tab TID JEEVAN Administration Albuterol/Ipratropium 3 ml 06/10/20 13:00 06/17/20 11:38 Ipratropium/Albuterol Sulfate 3 Ml Neb NEB 3 ml [id number] JEEVAN Administration Bisacodyl 10 mg 06/09/20 17:59 06/14/20 16:24 Bisacodyl 10 Mg Supp [place] 10 mg Q8H PRN Administration Constipation Enoxaparin Sodium 40 mg 06/15/20 09:00 06/17/20 09:06 Enoxaparin Sodium 40 Mg/0.4 Ml Syringe SC 40 mg 0900 JEEVAN Administration Famotidine 20 mg 06/13/20 21:00 06/17/20 09:06 Famotidine 20 Mg Tab PER TUBE 20 mg Q12HR JEEVAN Administration Fentanyl Citrate 2,000 mcg/ 100 mls @ 0 mls/hr 06/09/20 13:45 06/16/20 15:08 Sodium Chloride IV 07/09/20 13:45 100 mls INF JEEVAN Administration Protocol Per Protocol Meropenem 1 gm/ Device 50 mls @ 100 mls/hr 06/10/20 22:00 06/17/20 05:30 IVPB 50 mls Q8HR JEEVAN Administration Amiodarone HCl 450 mg/ 259 mls @ 0 mls/hr 06/11/20 01:30 06/17/20 00:47 Miscellaneous Medication 1 IVPB 259 mls each/ Dextrose/Water INF JEEVAN Administration Protocol As Directed Levothyroxine Sodium 100 mcg 06/13/20 06:00 06/17/20 05:30 Levothyroxine Sodium 100 Mcg Tab PO 100 mcg 0600 JEEVAN Administration Lorazepam 2 mg 06/09/20 13:45 06/16/20 16:35 Lorazepam 2 Mg/Ml Vial SLOW IVP 07/09/20 13:45 2 mg Q1H PRN Administration Breakthrough agitation Methylprednisolone Sodium Succinate 40 mg 06/13/20 12:00 06/17/20 12:27 Methylprednisolone Sod Succ 40 Mg Vial IVP 40 mg Q6HR JEEVAN Administration Polyethylene Glycol 17 gm 06/15/20 09:00 06/17/20 09:06 Polyethylene Glycol 3350 17 Gm Packet PO 17 gm DAILY JEEVAN Administration Propofol 1,000 mg 06/09/20 13:45 06/11/20 05:57 Propofol 1,000 Mg/100 Ml Vial IV 07/09/20 13:45 1,000 mg INF PRN Administration TO ACHIEVE GOAL RASS Protocol Sodium Chloride 10 ml 06/13/20 09:00 06/17/20 09:07 Flush - Normal Saline 10 Ml Syringe IVF 10 ml Q12HR JEEVAN Administration - Exam Eye: PERRL, anicteric sclera ENT: no oropharyngeal lesions, dry oral mucosa Neck: supple, no JVD Heart: RRR, no murmur Respiratory: no wheezes, no rales Gastrointestinal: soft, non-tender, non-distended, normal bowel sounds Extremities: no cyanosis, no edema Neurological: cranial nerve grossly intact Neurological - other findings: quadriplegia Hosp A/P (1) Acute respiratory failure with hypoxia Code(s): J96.01 - ACUTE RESPIRATORY FAILURE WITH HYPOXIA Status: Acute (2) Aspiration pneumonia Code(s): J69.0 - PNEUMONITIS DUE TO INHALATION OF FOOD AND VOMIT Status: Acute Qualifiers: Aspiration pneumonia type: unspecified Laterality: bilateral (3) Encephalopathy Code(s): G93.40 - ENCEPHALOPATHY, UNSPECIFIED Status: Resolved (4) Sepsis Code(s): A41.9 - SEPSIS, UNSPECIFIED ORGANISM Status: Acute Qualifiers: Acute respiratory failure type: with hypoxia (5) Atrial fibrillation Code(s): I48.91 - UNSPECIFIED ATRIAL FIBRILLATION Status: Chronic Qualifiers: (6) Chronic hyponatremia Code(s): E87.1 - HYPO-OSMOLALITY AND HYPONATREMIA Status: Chronic (7) Chronic indwelling Lozoya catheter Code(s): Z97.8 - PRESENCE OF OTHER SPECIFIED DEVICES Status: Chronic (8) Hypothyroidism Code(s): E03.9 - HYPOTHYROIDISM, UNSPECIFIED Status: Chronic (9) Normocytic anemia Code(s): D64.9 - ANEMIA, UNSPECIFIED Status: Chronic (10) Quadriplegia Code(s): G82.50 - QUADRIPLEGIA, UNSPECIFIED Status: Chronic - Plan is on amiodarone, meropenem, solumedrol, synthroid hemostable for trach and peg once she consents prognosis guarded echo showed ef of 60%, has chr anemia with h/h of 06/17 was extubated on 06/11 and got re-intubated 06/12
--- NOTE | 2020-06-17 16:16 | PDOC.FMACP ---
Advance Care Planning - Problem (1) Palliative care encounter Status: Acute Code(s): Z51.5 - ENCOUNTER FOR PALLIATIVE CARE (2) Acute respiratory failure with hypoxia Status: Acute Code(s): J96.01 - ACUTE RESPIRATORY FAILURE WITH HYPOXIA (3) Heart failure Status: Acute Code(s): I50.9 - HEART FAILURE, UNSPECIFIED Qualifiers: Heart failure type: diastolic Heart failure chronicity: acute on chronic Qualified Code(s): I50.33 - Acute on chronic diastolic (congestive) heart failure - Note Participants: patient, palliative care, other (Best friend Veena and Argenis Head RNgeriatric physician) Summary: Palliative Care revisited Advanced Care Planning with Ms Mai and Veena CORDOVA. The diagnosis, prognosis and goals of care were discussed. Appropriate forms and documentation to accomplish the goals of care were discussed. All questions were answered. Patient has lived a meaningful life as a quadriplegic. Lengthy conversation in relation to Trach/Peg weighing risk verses gain patient and MPOA confirmed to pursue Trach/Peg. Discussed that if she declines or has a quality of life other than what she is hopeful for that Goal of care can be revisited. Hopeful that once burden of intubation is removed that patient can communicate more easily mouthing words. Understanding of need to transition to LTAC for further rehab. Patient father lives in assisted living and is hopeful for placement of Trach/Peg for his daughter as well. Confirmed full resuscitation measures, and as stated pursue Trach/Peg Time Spent (mins): 45
[2020-06-17] MEDS: fentaNYL Citrate/PF 2,000 MCG in Sodium Chloride 0.9% 60 ML IV SCH (22:19)
[2020-06-17] MEDS: Lorazepam 2 MG/ML VIAL SLOW IVP PRN (23:59)
[2020-06-18 03:29] LABS: #Lymphocytes 0.5 thou/uL (1.20-3.40); #Monocytes 0.4 thou/uL (0.11-0.59); #Neutrophils 8.4 thou/uL (1.40-6.50); %Basophils 0.2 % (0.0-1.0); %Eosinophils 0.4 % (0.0-10.0); %Lymphocytes 5.3 % (21.0-51.0); %Monocytes 4.8 % (0.0-10.0); %Neutrophils 89.3 % (42.0-75.0); Hemoglobin 8.8 g/dL (12.0-16.0); Mean Corpuscular HGB CONC 32.2 g/dL (32.0-36.0); Mean Corpuscular Hemoglobin 31.4 pg (27.0-31.0); Mean Corpuscular Volume 97.5 fL (78.0-98.0); Mean Platelet Volume 7.2 fL (7.4-10.4); Platelet Count 410 thou/uL (130-400); RBC Distribution Width 16.4 % (11.5-14.5); White Blood Cell (WBC) Count 9.4 thou/uL (4.8-10.8)
[2020-06-18 03:42] LABS: ALT (SGPT) 49 U/L (8-55); AST (SGOT) 26 U/L (5-34); Albumin 3.4 g/dL (3.4-4.8); Alkaline Phosphatase 106 U/L (40-110); Anion Gap 12 mmol/L (10-20); BUN (Urea Nitrogen) 27 mg/dL (9.8-20.1); Bilirubin, Total 0.9 mg/dL (0.2-1.2); Calc. Creatinine Clearance 160 mL/min (70-130); Calcium 9.1 mg/dL (7.8-10.44); Carbon Dioxide 30 mmol/L (23-31); Chloride 107 mmol/L (98-107); Estimated GFR-MDRD Greater than 90; Globulin 2.4 g/dL (2.4-3.5); Glucose 152 mg/dL (80-115); Protein, Total 5.8 g/dL (6.0-8.3); Sodium 145 mmol/L (136-145)
[2020-06-18] MEDS: MEROPENEM 1 GM/50 ML 1 GM in Premix Bag 1 BAG IVPB SCH ×3 (05:30→21:22)
[2020-06-18] MEDS: Levothyroxine Sodium 100 MCG TAB PO SCH (05:31)
[2020-06-18] MEDS: Amiodarone 450 MG, Admixture Fee 1 EACH in Dextrose 5% in Water 250 ML IVPB SCH ×2 (05:31→22:52)
[2020-06-18] MEDS: methylPREDNISolone Sod Succ 40 MG VIAL IVP SCH ×3 (05:31→17:52)
[2020-06-18 07:55] LABS: Actual Bicarbonate (HCO3a) 29.2 mEq/L (22-28); Base Excess (BEa) 4.3 mEq/L (-2.0 to +3.0); CO2 Tension 45.3 mmHg (35.0-45.0); Calcium, Ionized (arterial) 1.25 mmol/L (1.12-1.30); Carboxyhemoglobin (COHb) 0.9 gm% (0.0-3.0); Hemoglobin (Hb) 9.1 g/dL (12.0-16.0); O2 Tension (PaO2), arterial 74.3 mmHg (> 80.0); Potassium - ABG Lab 4.22 mmol/L (3.70-5.30); pH, Arterial 7.43 (7.35-7.45)
[2020-06-18 08:19] LABS: Puncture Site RR
[2020-06-18 08:20] LABS: ALV-art Gradient 154.275 mmHg (0-20)
[2020-06-18] MEDS: Lactinex Tablet PO SCH ×3 (09:21→21:22)
[2020-06-18] MEDS: Famotidine 20 MG TAB PER TUBE SCH ×2 (09:21→21:22)
[2020-06-18] MEDS: Enoxaparin Sodium 40 MG/0.4 ML SYRINGE SC SCH (09:21)
[2020-06-18] MEDS: Polyethylene Glycol 3350 17 GM Packet PO SCH (09:21)
--- NOTE | 2020-06-18 13:28 | PDOC.HOSPP ---
- Subjective Encounter Date: 06/18/20 Encounter Time: 12:45 Subjective: awake on vent not in distress - Objective Vital Signs & Weight: Vital Signs (12 hours) Temp Pulse Resp BP Pulse Ox 06/18/20 12:00 61 25 H 99 06/18/20 10:56 60 166/82 H 06/18/20 10:00 22 H 06/18/20 08:00 22 H 96 06/18/20 07:31 61 138/80 06/18/20 07:29 63 11 L 100 06/18/20 07:00 98.0 F 06/18/20 06:00 10 L 06/18/20 04:00 97.0 F L 10 L 06/18/20 02:19 52 L 133/66 06/18/20 02:00 10 L Weight Admit Weight 162 lb 4.163 oz Weight 178 lb 12.718 oz Most Recent Monitor Data Heart Rate from ECG 69 NIBP 124/76 NIBP BP-Mean 103 Respiration from ECG 21 SpO2 99 I&O: 06/17/20 06/18/20 06/19/20 06:59 06:59 06:59 Intake Total 2567 1729.9 Output Total 1027 1580 480 Balance 1540 149.9 -480 Result Diagrams: 06/18/20 03:00 06/18/20 03:00 Hospitalist ROS - Medication Medications: Active Medications Generic Name Dose Route Start Last Admin Trade Name Freq PRN Reason Stop Dose Admin Acidophilus 1 tab 06/09/20 15:00 06/18/20 09:21 Lactinex Tablet PO Not Given TID JEEVAN Albuterol/Ipratropium 3 ml 06/10/20 13:00 06/18/20 12:00 Ipratropium/Albuterol Sulfate 3 Ml Neb NEB 3 ml [id number] JEEVAN Administration Bisacodyl 10 mg 06/09/20 17:59 06/14/20 16:24 Bisacodyl 10 Mg Supp NE 10 mg Q8H PRN Administration Constipation Enoxaparin Sodium 40 mg 06/15/20 09:00 06/18/20 09:21 Enoxaparin Sodium 40 Mg/0.4 Ml Syringe SC Not Given 0900 JEEVAN Famotidine 20 mg 06/13/20 21:00 06/18/20 09:21 Famotidine 20 Mg Tab PER TUBE Not Given Q12HR JEEVAN Fentanyl Citrate 2,000 mcg/ 100 mls @ 0 mls/hr 06/09/20 13:45 06/17/20 22:19 Sodium Chloride IV 07/09/20 13:45 100 mls INF JEEVAN Administration Protocol Per Protocol Meropenem 1 gm/ Device 50 mls @ 100 mls/hr 06/10/20 22:00 06/18/20 05:30 IVPB 50 mls Q8HR JEEVAN Administration Amiodarone HCl 450 mg/ 259 mls @ 0 mls/hr 06/11/20 01:30 06/18/20 05:31 Miscellaneous Medication 1 IVPB 259 mls each/ Dextrose/Water INF JEEVAN Administration Protocol As Directed Levothyroxine Sodium 100 mcg 06/13/20 06:00 06/18/20 05:31 Levothyroxine Sodium 100 Mcg Tab PO Not Given 0600 JEEVAN Lorazepam 2 mg 06/09/20 13:45 06/17/20 23:59 Lorazepam 2 Mg/Ml Vial SLOW IVP 07/09/20 13:45 2 mg Q1H PRN Administration Breakthrough agitation Methylprednisolone Sodium Succinate 40 mg 06/13/20 12:00 06/18/20 12:34 Methylprednisolone Sod Succ 40 Mg Vial IVP 40 mg Q6HR JEEVAN Administration Polyethylene Glycol 17 gm 06/15/20 09:00 06/18/20 09:21 Polyethylene Glycol 3350 17 Gm Packet PO Not Given DAILY JEEVAN Propofol 1,000 mg 06/09/20 13:45 06/11/20 05:57 Propofol 1,000 Mg/100 Ml Vial IV 07/09/20 13:45 1,000 mg INF PRN Administration TO ACHIEVE GOAL RASS Protocol Sodium Chloride 10 ml 06/13/20 09:00 06/18/20 09:27 Flush - Normal Saline 10 Ml Syringe IVF 10 ml Q12HR JEEVAN Administration - Exam Eye: PERRL, anicteric sclera ENT: no oropharyngeal lesions, dry oral mucosa Neck: supple, no JVD Heart: RRR, no murmur Respiratory: no wheezes, no rales, rhonchi Gastrointestinal: soft, non-tender, non-distended, normal bowel sounds Extremities: no cyanosis, 1+ LE edema Neurological: cranial nerve grossly intact, no focal deficits Hosp A/P (1) Acute respiratory failure with hypoxia Code(s): J96.01 - ACUTE RESPIRATORY FAILURE WITH HYPOXIA Status: Acute (2) Aspiration pneumonia Code(s): J69.0 - PNEUMONITIS DUE TO INHALATION OF FOOD AND VOMIT Status: Acute Qualifiers: Aspiration pneumonia type: unspecified Laterality: bilateral (3) Encephalopathy Code(s): G93.40 - ENCEPHALOPATHY, UNSPECIFIED Status: Resolved (4) Sepsis Code(s): A41.9 - SEPSIS, UNSPECIFIED ORGANISM Status: Resolved Qualifiers: Acute respiratory failure type: with hypoxia (5) Atrial fibrillation Code(s): I48.91 - UNSPECIFIED ATRIAL FIBRILLATION Status: Chronic Qualifiers: (6) Chronic hyponatremia Code(s): E87.1 - HYPO-OSMOLALITY AND HYPONATREMIA Status: Chronic (7) Chronic indwelling Lozoya catheter Code(s): Z97.8 - PRESENCE OF OTHER SPECIFIED DEVICES Status: Chronic (8) Hypothyroidism Code(s): E03.9 - HYPOTHYROIDISM, UNSPECIFIED Status: Chronic (9) Normocytic anemia Code(s): D64.9 - ANEMIA, UNSPECIFIED Status: Chronic (10) Quadriplegia Code(s): G82.50 - QUADRIPLEGIA, UNSPECIFIED Status: Chronic - Plan is on amiodarone, meropenem, solumedrol, synthroid hemostable for trach and peg per pulm advice prognosis guarded echo showed ef of 60%, has chr anemia with h/h of 06/17 was extubated on 06/11 and got re-intubated 06/12
[2020-06-18] MEDS ORDERED: Clopidogrel Bisulfate 75 MG TAB ONE (14:04)
[2020-06-18] MEDS ORDERED: CEFAZOLIN 2 GM in Premix Bag 1 BAG IVPB SCH (16:00)
[2020-06-18] MEDS: fentaNYL Citrate/PF 2,000 MCG in Sodium Chloride 0.9% 60 ML IV SCH (16:47)
--- NOTE | 2020-06-18 18:23 | PRG ---
DATE OF SERVICE: 06/18/2020 SUBJECTIVE: Ms. Mai is clinically stable. She has agreed to tracheostomy and PEG. She remains mechanically ventilated. OBJECTIVE: VITAL SIGNS: Respiratory rate is 10, FiO2 is at 40%, blood pressure 174/94, heart rate is in the 50s. LUNGS: Remarkable for mild rhonchi. HEART: Regular rhythm. ABDOMEN: Soft. EXTREMITIES: Without asymmetry. LABORATORY DATA: White count 9.4, hemoglobin 8.8, platelets 410. Electrolytes are normal, creatinine is 0.4. PH 7.43, CO2 of 45, PO2 of 74, and stop the daily blood gases since she will be having the tracheostomy. We probably can go to alternate day lab at some point in the future. We will get a chest x-ray with a tracheostomy tomorrow, she will have the PEG tube placed. We will begin attempts at weaning once we have these in place. Overall, she appears to be stable. Remains unclear as to whether or not she will be able to wean tracheostomy, but hopefully she will. Job ID: [id number]
--- NOTE | 2020-06-18 21:39 | CON ---
DATE OF CONSULTATION: CHIEF COMPLAINT: Ventilatory dependency. HISTORY OF PRESENT ILLNESS: The patient is a 64-year-old female, who is quadriplegic, in respiratory failure, had to be admitted, that was now 2 weeks ago. They were unable to get her off the vent. She had COVID tests, which were negative. PAST MEDICAL HISTORY: Hypertension, quadriplegia. She has a chronic Lozoya, hypothyroidism. PAST SURGICAL HISTORY: Spinal cord surgery. SOCIAL HISTORY: No tobacco, no alcohol. Wheelchair-bound. MEDICATIONS: She is on; 1. Eliquis. 2. Aspirin. 3. Levothyroxine. 4. Metoprolol. 5. Oxybutynin. PHYSICAL EXAMINATION: VITAL SIGNS: Her temperature is 98, pulse 59, blood pressure 115/74. GENERAL: She is awake, alert, on ventilator. She is an obese female, lying still. She has an endotracheal tube in her mouth with a feeding tube. ABDOMEN: Soft, nondistended, nontender. ASSESSMENT: Respiratory failure, unable to wean from ventilator. PLAN: Tracheostomy, percutaneous endoscopic gastrostomy. I have discussed planned procedure with her. She understands it as well as risk of bleeding, infection, loss of airway. She gives informed consent. Job ID: [id number]
[2020-06-18] MEDS: Lorazepam 2 MG/ML VIAL SLOW IVP PRN (22:52)
[2020-06-19] MEDS: methylPREDNISolone Sod Succ 40 MG VIAL IVP SCH ×4 (00:17→17:57)
[2020-06-19 04:14] LABS: #Lymphocytes 0.4 thou/uL (1.20-3.40); #Monocytes 0.4 thou/uL (0.11-0.59); #Neutrophils 7.9 thou/uL (1.40-6.50); %Basophils 0.1 % (0.0-1.0); %Eosinophils 0.3 % (0.0-10.0); %Lymphocytes 4.7 % (21.0-51.0); %Monocytes 4.5 % (0.0-10.0); %Neutrophils 90.3 % (42.0-75.0); Hemoglobin 8.8 g/dL (12.0-16.0); Mean Corpuscular HGB CONC 31.3 g/dL (32.0-36.0); Mean Corpuscular Hemoglobin 30.5 pg (27.0-31.0); Mean Corpuscular Volume 97.4 fL (78.0-98.0); Mean Platelet Volume 7.4 fL (7.4-10.4); Platelet Count 463 thou/uL (130-400); RBC Distribution Width 16.5 % (11.5-14.5); Red Blood Cell (RBC) Count 2.87 mill/uL (4.20-5.40); White Blood Cell (WBC) Count 8.7 thou/uL (4.8-10.8)
[2020-06-19 04:31] LABS: ALT (SGPT) 42 U/L (8-55); AST (SGOT) 23 U/L (5-34); Albumin 3.4 g/dL (3.4-4.8); Alkaline Phosphatase 112 U/L (40-110); Anion Gap 10 mmol/L (10-20); BUN (Urea Nitrogen) 27 mg/dL (9.8-20.1); Bilirubin, Total 0.8 mg/dL (0.2-1.2); Calc. Creatinine Clearance 157 mL/min (70-130); Calcium 8.8 mg/dL (7.8-10.44); Carbon Dioxide 31 mmol/L (23-31); Chloride 108 mmol/L (98-107); Estimated GFR-MDRD Greater than 90; Globulin 2.3 g/dL (2.4-3.5); Glucose 140 mg/dL (80-115); Potassium 4.2 mmol/L (3.5-5.1); Protein, Total 5.7 g/dL (6.0-8.3); Sodium 145 mmol/L (136-145)
[2020-06-19] MEDS: MEROPENEM 1 GM/50 ML 1 GM in Premix Bag 1 BAG IVPB SCH ×3 (06:37→21:27)
[2020-06-19] MEDS ORDERED: Lidocaine 1% (PF) 30 ML VIAL ONE (08:41)
[2020-06-19] MEDS ORDERED: Bupivacaine HCl 0.5%/Epinephrine 1:200,000/PF 30 ml Vial ONE (08:41)
[2020-06-19] MEDS ORDERED: Midazolam HCl 2 mg/2 ml Vial ONE (08:47)
[2020-06-19] MEDS ORDERED: Ketamine 50 MG/ML (10ML VIAL) ONE (08:48)
[2020-06-19] MEDS ORDERED: Morphine 4 MG/ML VIAL SLOW IVP PRN (10:06)
[2020-06-19] MEDS ORDERED: Morphine 2 MG/ML VIAL SLOW IVP PRN ×2 (10:28→15:15)
--- NOTE | 2020-06-19 10:36 | OP ---
DATE OF PROCEDURE: 06/19/2020 PREOPERATIVE DIAGNOSIS: Ventilator dependency. PROCEDURE PERFORMED: open tracheostomy, percutaneous endoscopic gastrostomy. INDICATIONS: The patient is a 64-year-old female, who is quadriplegic, ventilatory dependent, required long-term access as well as feeding axis. FINDINGS: Minimal blood loss. DESCRIPTION OF PROCEDURE: After informed consent was obtained, the patient was taken to the operating room, given general endotracheal anesthesia, placed in the supine position. Her neck was prepped and draped in usual fashion. Local anesthesia was infiltrated subcutaneously and deep, and a transverse cervical incision was performed approximately 2 inches above the sternal notch. Subcu was divided sharply with electrocautery. The midline was found. The strap muscles were retracted laterally. 0 prolene suture was placed to either side of midline. The midline was incised with an 11 blade. The trachea was split with the tracheal pricing consultant. The endotracheal tube was visualized and was removed under direct vision. The #8 Shiley cuffed tracheostomy tube was inserted under direct vision into the trachea. The balloon inflated, connected to the ventilator, good end-tidal CO2. Hemostasis was assured. The tracheostomy tube was secured with the cervical collar and a sterile bandage applied. Then, endoscopy was performed. The video endoscope was inserted under direct vision. The stomach insufflated with air. On the left subcostal area, the stomach was visualized. The skin was prepped with DuraPrep. Local anesthesia was infiltrated. An 11 blade used to make an incision in the skin. The needle was inserted under direct vision and the J-wire was inserted. This was grasped with a snare using the endoscope and brought out through the mouth. The J-wire was then attached to the gastrostomy tube and this was brought retrograde through the stomach and skin . The clamp was inserted and then end piece inserted. Sterile bandage applied. Repeat endoscopy was performed, showed good seeding of the PEG tube in the stomach. Hemostasis was assured. The patient tolerated the procedure well, transferred to ICU in serious, but stable condition. Job ID: [id number]
[2020-06-19] MEDS ORDERED: PROPOFOL 200 MG/20 ML VIAL ONE (10:51)
[2020-06-19] MEDS: Levothyroxine Sodium 100 MCG TAB PO SCH (11:16)
[2020-06-19] MEDS: Enoxaparin Sodium 40 MG/0.4 ML SYRINGE SC SCH (11:16)
[2020-06-19] MEDS: Lactinex Tablet PO SCH ×4 (11:17→21:32)
[2020-06-19] MEDS: Famotidine 20 MG TAB PER TUBE SCH ×3 (11:17→21:32)
[2020-06-19] MEDS: Polyethylene Glycol 3350 17 GM Packet PO SCH (11:17)
--- NOTE | 2020-06-19 12:40 | PDOC.HOSPP ---
- Subjective Encounter Date: 06/19/20 Encounter Time: 13:00 Subjective: On vent, sedated not in distress - Objective Vital Signs & Weight: Vital Signs (12 hours) Temp Pulse Resp BP Pulse Ox 06/19/20 11:22 78 156/84 H 06/19/20 10:00 10 L 06/19/20 08:00 98.7 F 33 H 97 06/19/20 07:26 61 129/109 H 06/19/20 07:24 59 L 20 97 06/19/20 06:00 20 06/19/20 04:00 98.5 F 18 06/19/20 02:29 55 L 134/77 06/19/20 02:00 17 Weight Admit Weight 162 lb 4.163 oz Weight 168 lb 13.985 oz Most Recent Monitor Data Heart Rate from ECG 48 NIBP 149/86 NIBP BP-Mean 96 Respiration from ECG 16 SpO2 100 I&O: 06/18/20 06/19/20 06/20/20 06:59 06:59 06:59 Intake Total 1729.9 1409 Output Total 1580 1520 230 Balance 149.9 -111 -230 Result Diagrams: 06/19/20 04:00 06/19/20 04:00 Hospitalist ROS - Medication Medications: Active Medications Generic Name Dose Route Start Last Admin Trade Name Freq PRN Reason Stop Dose Admin Acidophilus 1 tab 06/09/20 15:00 06/19/20 11:17 Lactinex Tablet PO Not Given TID JEEVAN Albuterol/Ipratropium 3 ml 06/10/20 13:00 06/19/20 07:24 Ipratropium/Albuterol Sulfate 3 Ml Neb NEB 3 ml [id number] JEEVAN Administration Bisacodyl 10 mg 06/09/20 17:59 06/14/20 16:24 Bisacodyl 10 Mg Supp [place] 10 mg Q8H PRN Administration Constipation Enoxaparin Sodium 40 mg 06/15/20 09:00 06/19/20 11:16 Enoxaparin Sodium 40 Mg/0.4 Ml Syringe SC Not Given 0900 JEEVAN Famotidine 20 mg 06/13/20 21:00 06/19/20 11:17 Famotidine 20 Mg Tab PER TUBE Not Given Q12HR JEEVAN Fentanyl Citrate 2,000 mcg/ 100 mls @ 0 mls/hr 06/09/20 13:45 06/18/20 16:47 Sodium Chloride IV 07/09/20 13:45 100 mls INF JEEVAN Administration Protocol Per Protocol Meropenem 1 gm/ Device 50 mls @ 100 mls/hr 06/10/20 22:00 06/19/20 06:37 IVPB 50 mls Q8HR JEEVAN Administration Amiodarone HCl 450 mg/ 259 mls @ 0 mls/hr 06/11/20 01:30 06/18/20 22:52 Miscellaneous Medication 1 IVPB 259 mls each/ Dextrose/Water INF JEEVAN Administration Protocol As Directed Levothyroxine Sodium 100 mcg 06/13/20 06:00 06/19/20 11:16 Levothyroxine Sodium 100 Mcg Tab PO Not Given 0600 JEEVAN Lorazepam 2 mg 06/09/20 13:45 06/18/20 22:52 Lorazepam 2 Mg/Ml Vial SLOW IVP 07/09/20 13:45 2 mg Q1H PRN Administration Breakthrough agitation Methylprednisolone Sodium Succinate 40 mg 06/13/20 12:00 06/19/20 12:08 Methylprednisolone Sod Succ 40 Mg Vial IVP 40 mg Q6HR JEEVAN Administration Polyethylene Glycol 17 gm 06/15/20 09:00 06/19/20 11:17 Polyethylene Glycol 3350 17 Gm Packet PO Not Given DAILY JEEVAN Propofol 1,000 mg 06/09/20 13:45 06/11/20 05:57 Propofol 1,000 Mg/100 Ml Vial IV 07/09/20 13:45 1,000 mg INF PRN Administration TO ACHIEVE GOAL RASS Protocol Sodium Chloride 10 ml 06/13/20 09:00 06/19/20 11:17 Flush - Normal Saline 10 Ml Syringe IVF Not Given Q12HR JEEVAN - Exam Eye: PERRL, anicteric sclera ENT: dry oral mucosa Neck: no JVD Neck - other findings: trach+ Heart: RRR, no murmur Respiratory: no wheezes, no rales Gastrointestinal: soft, non-distended, normal bowel sounds Gastrointestinal - other findings: peg+ Extremities: no cyanosis, 1+ LE edema Neurological - other findings: quadriplegia Hosp A/P (1) Acute respiratory failure with hypoxia Code(s): J96.01 - ACUTE RESPIRATORY FAILURE WITH HYPOXIA Status: Acute (2) Aspiration pneumonia Code(s): J69.0 - PNEUMONITIS DUE TO INHALATION OF FOOD AND VOMIT Status: Acute Qualifiers: Aspiration pneumonia type: unspecified Laterality: bilateral (3) Encephalopathy Code(s): G93.40 - ENCEPHALOPATHY, UNSPECIFIED Status: Resolved (4) Sepsis Code(s): A41.9 - SEPSIS, UNSPECIFIED ORGANISM Status: Resolved Qualifiers: Acute respiratory failure type: with hypoxia (5) Atrial fibrillation Code(s): I48.91 - UNSPECIFIED ATRIAL FIBRILLATION Status: Chronic Qualifiers: (6) Chronic hyponatremia Code(s): E87.1 - HYPO-OSMOLALITY AND HYPONATREMIA Status: Chronic (7) Chronic indwelling Lozoya catheter Code(s): Z97.8 - PRESENCE OF OTHER SPECIFIED DEVICES Status: Chronic (8) Hypothyroidism Code(s): E03.9 - HYPOTHYROIDISM, UNSPECIFIED Status: Chronic (9) Normocytic anemia Code(s): D64.9 - ANEMIA, UNSPECIFIED Status: Chronic (10) Quadriplegia Code(s): G82.50 - QUADRIPLEGIA, UNSPECIFIED Status: Chronic - Plan is on amiodarone, meropenem, solumedrol, synthroid hemostable s/p trach and peg 06/19, weaning from am prognosis guarded echo showed ef of 60%, has chr anemia with h/h of 06/17 was extubated on 06/11 and got re-intubated 06/12
[2020-06-19] MEDS: fentaNYL Citrate/PF 2,000 MCG in Sodium Chloride 0.9% 60 ML IV SCH (12:46)
[2020-06-19] MEDS: Lorazepam 2 MG/ML VIAL SLOW IVP PRN ×2 (13:02→22:35)
[2020-06-19] MEDS: Amiodarone 450 MG, Admixture Fee 1 EACH in Dextrose 5% in Water 250 ML IVPB SCH (14:26)
[2020-06-19] MEDS ORDERED: Propofol 1,000 MG/100 ML VIAL IV PRN (15:15)
[2020-06-19] MEDS ORDERED: Fentanyl BOLUS 250 ML IVPB PRN (15:15)
[2020-06-19] MEDS ORDERED: Propofol BOLUS 1,000 MG/100 ML VIAL IV PRN (15:15)
--- NOTE | 2020-06-19 16:50 | PRG ---
DATE OF SERVICE: 06/19/2020 SUBJECTIVE: Ms. Mai had her trach and her PEG placed this morning. OBJECTIVE: GENERAL: She is in no distress. She is still asleep from a surgery. VITAL SIGNS: Heart rates in the 50s, blood pressure 156/89, respiratory rates in the teens, oximetry is 97. LUNGS: Clear. HEART: Regular rhythm. ABDOMEN: Soft. LABORATORY DATA: White count 8.7, hemoglobin 8.8, platelets 463. Sodium 145, potassium 4, chloride 107, bicarb 30, BUN 27, creatinine 0.46. Intake and outputs -111. IMPRESSION: Quadriplegia with respiratory failure. We will start weaning in the morning when she is awake. I think her prognosis is quite guarded, if not poor. We will check a chest x-ray in the morning. Job ID: [id number]
[2020-06-20] MEDS: methylPREDNISolone Sod Succ 40 MG VIAL IVP SCH ×5 (01:14→23:01)
[2020-06-20] MEDS: fentaNYL Citrate/PF 2,000 MCG in Sodium Chloride 0.9% 60 ML IV SCH ×2 (03:03→18:37)
[2020-06-20 04:18] LABS: #Lymphocytes 0.5 thou/uL (1.20-3.40); #Monocytes 0.4 thou/uL (0.11-0.59); #Neutrophils 6.7 thou/uL (1.40-6.50); %Eosinophils 0.2 % (0.0-10.0); %Monocytes 5.7 % (0.0-10.0); %Neutrophils 88.1 % (42.0-75.0); Hemoglobin 9.1 g/dL (12.0-16.0); Mean Corpuscular HGB CONC 32.5 g/dL (32.0-36.0); Mean Corpuscular Volume 95.5 fL (78.0-98.0); Mean Platelet Volume 7.5 fL (7.4-10.4); Platelet Count 460 thou/uL (130-400); RBC Distribution Width 16.3 % (11.5-14.5); Red Blood Cell (RBC) Count 2.93 mill/uL (4.20-5.40); White Blood Cell (WBC) Count 7.6 thou/uL (4.8-10.8)
[2020-06-20 04:37] LABS: ALT (SGPT) 43 U/L (8-55); AST (SGOT) 24 U/L (5-34); Albumin 3.4 g/dL (3.4-4.8); Alkaline Phosphatase 105 U/L (40-110); Anion Gap 11 mmol/L (10-20); BUN (Urea Nitrogen) 22 mg/dL (9.8-20.1); Calc. Creatinine Clearance 158 mL/min (70-130); Carbon Dioxide 31 mmol/L (23-31); Chloride 107 mmol/L (98-107); Estimated GFR-MDRD Greater than 90; Globulin 2.4 g/dL (2.4-3.5); Glucose 141 mg/dL (80-115); Potassium 3.6 mmol/L (3.5-5.1); Protein, Total 5.8 g/dL (6.0-8.3); Sodium 145 mmol/L (136-145)
[2020-06-20] MEDS: Amiodarone 450 MG, Admixture Fee 1 EACH in Dextrose 5% in Water 250 ML IVPB SCH (05:17)
[2020-06-20] MEDS: Levothyroxine Sodium 100 MCG TAB PO SCH (06:11)
[2020-06-20] MEDS: MEROPENEM 1 GM/50 ML 1 GM in Premix Bag 1 BAG IVPB SCH (06:11)
--- NOTE | 2020-06-20 07:53 | RAD ---
Chest AP view INDICATION: Intubation COMPARISON: June 15, 2020 FINDINGS: Lungs: There is improvement in the bilateral lower lobe airspace disease Cardiac silhouette: Mild cardiomegaly persists Pulmonary vasculature: Mild pulmonary vascular congestion persists Pleural spaces: Tiny right and small left pleural effusion persists Upper abdomen: No abnormality seen. Osseous structures: No acute osseous abnormality. Additional findings: Tracheostomy tube is unchanged. Gastric catheter has been removed IMPRESSION: Improving bilateral lower lobe airspace disease
[2020-06-20] MEDS: Famotidine 20 MG TAB PER TUBE SCH ×2 (08:43→20:43)
[2020-06-20] MEDS: Lactinex Tablet PO SCH ×3 (08:43→20:42)
[2020-06-20] MEDS: Enoxaparin Sodium 40 MG/0.4 ML SYRINGE SC SCH (08:43)
[2020-06-20] MEDS: Polyethylene Glycol 3350 17 GM Packet PO SCH (08:44)
--- NOTE | 2020-06-20 08:53 | PDOC.EP ---
- Subjective Date: 06/20/20 Time: 08:52 Interval History: PEG tube and trach yesterday. No arrhythmias - Objective Allergies/Adverse Reactions: Allergies Allergy/AdvReac Type Severity Reaction Status Date / Time Sulfa (Sulfonamide Allergy Verified 05/26/20 01:22 Antibiotics) Current Medications Acidophilus (Lactinex Tablet) 1 tab PO TID [facility] Last Admin: 06/20/20 08:43 Dose: 1 tab Documented by: Albuterol/Ipratropium (Ipratropium/Albuterol Sulfate 3 Ml Neb) 3 ml NEB [id number] JEEVAN Last Admin: 06/20/20 07:10 Dose: 3 ml Documented by: Bisacodyl (Bisacodyl 10 Mg Supp) 10 mg NE Q8H PRN PRN Reason: Constipation Last Admin: 06/14/20 16:24 Dose: 10 mg Documented by: Enoxaparin Sodium (Enoxaparin Sodium 40 Mg/0.4 Ml Syringe) 40 mg SC 0900 [facility] Last Admin: 06/20/20 08:43 Dose: 40 mg Documented by: Famotidine (Famotidine 20 Mg Tab) 20 mg PER TUBE Q12HR JEEVAN Last Admin: 06/20/20 08:43 Dose: 20 mg Documented by: Meropenem 1 gm/ Device 50 mls @ 100 mls/hr IVPB Q8HR [facility] Last Admin: 06/20/20 06:11 Dose: 50 mls Documented by: Amiodarone HCl 450 mg/Miscellaneous Medication 1 each/ Dextrose/Water 259 mls @ 0 mls/hr IVPB INF JEEVAN; Protocol Last Admin: 06/20/20 05:17 Dose: 259 mls Documented by: Cefazolin Sodium/Dextrose 2 gm (/ Device) 50 mls @ 100 mls/hr IVPB ONCALL-OR JEEVAN Fentanyl Citrate 2,000 mcg/ (Sodium Chloride) 100 mls @ 0 mls/hr IV INF JEEVAN; Protocol Stop: 07/19/20 15:15 Last Admin: 06/20/20 03:03 Dose: 100 mls Documented by: Fentanyl Citrate (Fentanyl Bolus) 250 mls @ 0 mls/hr IVPB PRN PRN PRN Reason: Breakthrough pain/agitation Stop: 07/19/20 15:15 Levothyroxine Sodium (Levothyroxine Sodium 100 Mcg Tab) 100 mcg PO 0600 [facility] Last Admin: 06/20/20 06:11 Dose: 100 mcg Documented by: Lorazepam (Lorazepam 2 Mg/Ml Vial) 2 mg SLOW IVP Q1H PRN PRN Reason: Breakthrough agitation Stop: 07/19/20 15:15 Last Admin: 06/19/20 22:35 Dose: 2 mg Documented by: Methylprednisolone Sodium Succinate (Methylprednisolone Sod Succ 40 Mg Vial) 40 mg IVP Q6HR [facility] Last Admin: 06/20/20 06:12 Dose: 40 mg Documented by: Miscellaneous Medication (Electrolyte Replacement Protocol) 0 each FS ASDIR PRN; Protocol PRN Reason: ELECTROLYTE REPLACEMENT Morphine Sulfate (Morphine 2 Mg/Ml Vial) 2 mg SLOW IVP Q4H PRN PRN Reason: Mild-Moderate Pain (1-5) Morphine Sulfate (Morphine 4 Mg/Ml Vial) 4 mg SLOW IVP Q4H PRN PRN Reason: Moderate to Severe Pain (6-10) Morphine Sulfate (Morphine 2 Mg/Ml Vial) 2 mg SLOW IVP Q1H PRN PRN Reason: Breakthrough Pain/Agitation Stop: 07/19/20 15:15 Discontinue Previous Narcotic Pain Medications And Benzodiazepines 1 each FS .ONE [facility] Stop: 07/09/20 13:45 Polyethylene Glycol (Polyethylene Glycol 3350 17 Gm Packet) 17 gm PO DAILY [facility] Last Admin: 06/20/20 08:44 Dose: 17 gm Documented by: Polyethylene Glycol (Polyethylene Glycol 3350 17 Gm Packet) 17 gm PO DAILYPRN PRN PRN Reason: Constipation Propofol (Propofol 1,000 Mg/100 Ml Vial) 1,000 mg IV INF PRN; Protocol PRN Reason: TO ACHIEVE GOAL RASS Stop: 07/19/20 15:15 Propofol (Propofol Bolus 1,000 Mg/100 Ml Vial) 20 mg IV Q5MIN PRN PRN Reason: BREAKTHROUGH AGITATION Stop: 07/19/20 15:15 Senna/Docusate Sodium (Senokot S 8.6-50 Mg Tab) 2 tab PO BIDPRN PRN PRN Reason: Constipation Sodium Chloride (Flush - Normal Saline 10 Ml Syringe) 10 ml IVF Q12HR [facility] Last Admin: 06/20/20 08:43 Dose: 10 ml Documented by: Sodium Chloride (Flush - Normal Saline 10 Ml Syringe) 10 ml IVF PRN PRN PRN Reason: Saline Flush Vital Signs & Weight: Vital Signs Temp Pulse Resp BP Pulse Ox 06/20/20 07:11 63 06/20/20 07:10 66 32 H 95 06/20/20 06:00 33 H 06/20/20 04:00 98.8 F 25 H 06/20/20 02:03 52 L 111/62 06/20/20 02:00 14 06/20/20 00:14 49 L 118/68 06/20/20 00:00 16 06/19/20 22:00 18 Admit Weight 162 lb 4.163 oz Weight 168 lb 13.985 oz I/O: I/O 06/19/20 06/20/20 06/21/20 06:59 06:59 06:59 Intake Total 1409 716 Output Total 1520 1895 Balance -111 -1179 - Labs Result Diagrams: 06/20/20 04:00 06/20/20 04:00 - Assessment/Plan Assessment/Plan: Typical atrial flutter - Not a candidate for ablation Paroxysmal atrial fibrillation - on amiodarone IV. Maintaining sinus rhythm Anemia Recommend: Change to oral amiodarone 200 mg daily. Discontinue IV amiodarone. Sign off. Recommend follow up with her primary cooler supervisor, Dr. Truong for atrial fibrillation management.
[2020-06-20] MEDS: Amiodarone 200 MG TAB PO SCH (09:16)
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
--- NOTE | 2020-06-20 16:48 | PDOC.HOSPP ---
- Subjective Encounter Date: 06/20/20 Encounter Time: 10:00 Subjective: Patient seen for follow-up regarding acute hypoxic respiratory failure. Has tracheostomy and PEG tube. Patient nonverbal, could not complete review of systems. - Objective Vital Signs & Weight: Vital Signs (12 hours) Temp Pulse Resp BP Pulse Ox 06/20/20 16:00 97.6 F 13 06/20/20 15:19 56 L 142/80 H 06/20/20 14:00 28 H 06/20/20 13:37 58 L 06/20/20 13:36 58 L 23 H 99 06/20/20 12:00 97.6 F 31 H 06/20/20 10:42 54 L 137/99 H 06/20/20 10:00 33 H 06/20/20 08:00 97.5 F L 28 H 100 06/20/20 07:11 63 06/20/20 07:10 66 32 H 95 06/20/20 06:00 33 H Weight Admit Weight 162 lb 4.163 oz Weight 168 lb 13.985 oz Most Recent Monitor Data Heart Rate from ECG 57 NIBP 139/59 NIBP BP-Mean 98 Respiration from ECG 17 SpO2 100 I&O: 06/19/20 06/20/20 06/21/20 06:59 06:59 06:59 Intake Total 1409 716 597 Output Total 1520 1895 860 Balance -111 -1179 -263 Result Diagrams: 06/20/20 04:00 06/20/20 04:00 Additional Labs: I reviewed patient's labs and MAR EKG Reviewed by me: Yes (Telemetry: Normal sinus rhythm) Hospitalist ROS - Review of Systems ROS unobtainable: due to mental status - Medication Medications: Active Medications Generic Name Dose Route Start Last Admin Trade Name Freq PRN Reason Stop Dose Admin Acidophilus 1 tab 06/09/20 15:00 06/20/20 14:58 Lactinex Tablet PO 1 tab TID JEEVAN Administration Albuterol/Ipratropium 3 ml 06/10/20 13:00 06/20/20 13:36 Ipratropium/Albuterol Sulfate 3 Ml Neb NEB 3 ml [id number] JEEVAN Administration Amiodarone HCl 200 mg 06/20/20 09:00 06/20/20 09:16 Amiodarone 200 Mg Tab PO 200 mg DAILY JEEVAN Administration Bisacodyl 10 mg 06/09/20 17:59 06/14/20 16:24 Bisacodyl 10 Mg Supp NM 10 mg Q8H PRN Administration Constipation Enoxaparin Sodium 40 mg 06/15/20 09:00 06/20/20 08:43 Enoxaparin Sodium 40 Mg/0.4 Ml Syringe SC 40 mg 0900 JEEVAN Administration Famotidine 20 mg 06/13/20 21:00 06/20/20 08:43 Famotidine 20 Mg Tab PER TUBE 20 mg Q12HR JEEVAN Administration Fentanyl Citrate 2,000 mcg/ 100 mls @ 0 mls/hr 06/19/20 15:15 06/20/20 03:03 Sodium Chloride IV 07/19/20 15:15 100 mls INF JEEVAN Administration Protocol Per Protocol Levothyroxine Sodium 100 mcg 06/13/20 06:00 06/20/20 06:11 Levothyroxine Sodium 100 Mcg Tab PO 100 mcg 0600 JEEVAN Administration Lorazepam 2 mg 06/19/20 15:15 06/19/20 22:35 Lorazepam 2 Mg/Ml Vial SLOW IVP 07/19/20 15:15 2 mg Q1H PRN Administration Breakthrough agitation Methylprednisolone Sodium Succinate 40 mg 06/13/20 12:00 06/20/20 11:43 Methylprednisolone Sod Succ 40 Mg Vial IVP 40 mg Q6HR JEEVAN Administration Polyethylene Glycol 17 gm 06/15/20 09:00 06/20/20 08:44 Polyethylene Glycol 3350 17 Gm Packet PO 17 gm DAILY JEEVAN Administration Sodium Chloride 10 ml 06/13/20 09:00 06/20/20 08:43 Flush - Normal Saline 10 Ml Syringe IVF 10 ml Q12HR JEEVAN Administration - Exam General Appearance: awake alert ENT - other findings: Tracheostomy Heart: RRR Respiratory: CTAB Gastrointestinal: soft Gastrointestinal - other findings: PEG tube Extremities: no cyanosis Psychiatric - other findings: Unable to assess Hosp A/P - Plan -Assessment (1) Acute respiratory failure with hypoxia Code(s): J96.01 - ACUTE RESPIRATORY FAILURE WITH HYPOXIA Status: Acute (2) Aspiration pneumonia Code(s): J69.0 - PNEUMONITIS DUE TO INHALATION OF FOOD AND VOMIT Status: Acute Qualifiers: Aspiration pneumonia type: unspecified Laterality: bilateral (3) Atrial fibrillation Code(s): I48.91 - UNSPECIFIED ATRIAL FIBRILLATION Status: Chronic Qualifiers: (4) Chronic indwelling Lozoya catheter Code(s): Z97.8 - PRESENCE OF OTHER SPECIFIED DEVICES Status: Chronic (5) Chronic hyponatremia Code(s): E87.1 - HYPO-OSMOLALITY AND HYPONATREMIA Status: Chronic (6) Hypothyroidism Code(s): E03.9 - HYPOTHYROIDISM, UNSPECIFIED Status: Chronic (7) Normocytic anemia Code(s): D64.9 - ANEMIA, UNSPECIFIED Status: Chronic (8) Quadriplegia Code(s): G82.50 - QUADRIPLEGIA, UNSPECIFIED Status: Chronic (9) Encephalopathy Code(s): G93.40 - ENCEPHALOPATHY, UNSPECIFIED Status: Resolved (10) Sepsis Code(s): A41.9 - SEPSIS, UNSPECIFIED ORGANISM Status: Resolved Qualifiers: Acute respiratory failure type: with hypoxia - Plan Continue amiodarone, solumedrol, synthroid Antibiotics being discontinued s/p trach and peg 06/19 prognosis guarded was extubated on 06/11 and got re-intubated 06/12
[2020-06-20] MEDS: Lorazepam 2 MG/ML VIAL SLOW IVP PRN (20:43)
--- NOTE | 2020-06-20 22:13 | PRG ---
DATE OF SERVICE: 06/20/2020 SUBJECTIVE: Ms. Mai is awake and alert, in no distress. She says she is comfortable and wants to decrease her ventilatory support. We are making slow changes every day. OBJECTIVE: VITAL SIGNS: Blood pressure 102/88, heart rate 60, respiratory rate 16, oximetry is 100%. LUNGS: Clear. HEART: Regular rhythm. ABDOMEN: Soft. LABORATORY DATA: White count is 7.6, hemoglobin 9.1, platelets 460. Sodium 145, potassium 3.6, chloride 107, bicarb 31, BUN 22, creatinine 0.4. IMPRESSION: Quadriplegia with failed extubation requiring re-intubation, is now straight in the bed. I suspect she will make slow progress. Job ID: [id number]
[2020-06-21 03:28] LABS: #Lymphocytes 0.4 thou/uL (1.20-3.40); #Monocytes 0.3 thou/uL (0.11-0.59); #Neutrophils 6.6 thou/uL (1.40-6.50); %Eosinophils 0.2 % (0.0-10.0); %Lymphocytes 4.9 % (21.0-51.0); %Monocytes 3.8 % (0.0-10.0); %Neutrophils 91.1 % (42.0-75.0); Hemoglobin 9.1 g/dL (12.0-16.0); Mean Corpuscular HGB CONC 32.5 g/dL (32.0-36.0); Mean Corpuscular Hemoglobin 30.9 pg (27.0-31.0); Mean Corpuscular Volume 94.9 fL (78.0-98.0); Mean Platelet Volume 7.4 fL (7.4-10.4); Platelet Count 474 thou/uL (130-400); RBC Distribution Width 16.4 % (11.5-14.5); Red Blood Cell (RBC) Count 2.95 mill/uL (4.20-5.40); White Blood Cell (WBC) Count 7.3 thou/uL (4.8-10.8)
[2020-06-21 03:49] LABS: ALT (SGPT) 42 U/L (8-55); AST (SGOT) 20 U/L (5-34); Albumin 3.3 g/dL (3.4-4.8); Alkaline Phosphatase 114 U/L (40-110); Anion Gap 11 mmol/L (10-20); BUN (Urea Nitrogen) 26 mg/dL (9.8-20.1); Bilirubin, Total 0.8 mg/dL (0.2-1.2); Calc. Creatinine Clearance 148 mL/min (70-130); Calcium 8.7 mg/dL (7.8-10.44); Carbon Dioxide 26 mmol/L (23-31); Chloride 107 mmol/L (98-107); Estimated GFR-MDRD Greater than 90; Globulin 2.3 g/dL (2.4-3.5); Glucose 190 mg/dL (80-115); Potassium 3.7 mmol/L (3.5-5.1); Protein, Total 5.6 g/dL (6.0-8.3); Sodium 140 mmol/L (136-145)
[2020-06-21] MEDS: Lorazepam 2 MG/ML VIAL SLOW IVP PRN ×3 (04:07→22:11)
[2020-06-21] MEDS: Levothyroxine Sodium 100 MCG TAB PO SCH (05:27)
[2020-06-21] MEDS: methylPREDNISolone Sod Succ 40 MG VIAL IVP SCH ×3 (05:27→17:58)
--- NOTE | 2020-06-21 07:32 | PRG ---
DATE OF SERVICE: 06/21/2020 SUBJECTIVE: Ms. Mai remains mechanically ventilated. She is quite anxious. We are going to start Precedex today and try to decrease her pain medicines to see if this will help facilitate decrease in ventilatory support. Respiratory rates the teens, FiO2 is at 40%, blood pressure 128/60. OBJECTIVE: GENERAL: She nods that she is comfortable. LUNGS: Clear. HEART: Regular rhythm. ABDOMEN: Soft. EXTREMITIES: Without any change. LABORATORY DATA: White count 7.3, hemoglobin 9.1, platelets 474. Sodium 145, potassium 3.6, chloride 107, bicarb 31, BUN 22, creatinine 0.4. IMPRESSION: Respiratory failure after presenting needing intubation. She subsequently was extubated and had to be reintubated. She now has a trach and a PEG. She is felt to have an aspiration pneumonia involving both lower lobes. She has also had complications of supraventricular tachycardia, but this has not been an issue lately. Her radiograph is slowly improving and I suspect we will make slow progress with weaning. Job ID: [id number]
[2020-06-21] MEDS: Famotidine 20 MG TAB PER TUBE SCH ×2 (08:43→20:43)
[2020-06-21] MEDS: Lactinex Tablet PO SCH ×3 (08:44→20:43)
[2020-06-21] MEDS: Amiodarone 200 MG TAB PO SCH (08:44)
[2020-06-21] MEDS: Enoxaparin Sodium 40 MG/0.4 ML SYRINGE SC SCH (08:44)
[2020-06-21] MEDS: Polyethylene Glycol 3350 17 GM Packet PO SCH (08:44)
--- NOTE | 2020-06-21 16:10 | PDOC.HOSPP ---
- Subjective Encounter Date: 06/21/20 Encounter Time: 15:30 Subjective: Patient seen for follow-up regarding respiratory failure. She is mechanically ventilated through the tracheostomy, nonverbal, unable to complete review of systems. - Objective Vital Signs & Weight: Vital Signs (12 hours) Temp Pulse Resp BP Pulse Ox 06/21/20 14:11 51 L 141/81 H 06/21/20 14:09 51 L 14 100 06/21/20 14:00 15 06/21/20 12:00 98.6 F 16 06/21/20 10:59 56 L 153/74 H 06/21/20 10:00 12 06/21/20 08:00 99.6 F 11 L 06/21/20 07:22 100 06/21/20 07:03 56 L 150/70 H 06/21/20 06:00 14 Weight Admit Weight 162 lb 4.163 oz Weight 168 lb 13.985 oz Most Recent Monitor Data Heart Rate from ECG 51 NIBP 141/81 NIBP BP-Mean 103 Respiration from ECG 15 SpO2 100 I&O: 06/20/20 06/21/20 06/22/20 06:59 06:59 06:59 Intake Total 716 2039 390 Output Total 1895 1665 490 Balance -1179 374 -100 Result Diagrams: 06/21/20 03:00 06/21/20 03:00 Additional Labs: I reviewed patient's labs and MAR EKG Reviewed by me: Yes (Telemetry: Normal sinus rhythm) Hospitalist ROS - Review of Systems ROS unobtainable: due to mental status - Medication Medications: Active Medications Generic Name Dose Route Start Last Admin Trade Name Freq PRN Reason Stop Dose Admin Acidophilus 1 tab 06/09/20 15:00 06/21/20 15:11 Lactinex Tablet PO 1 tab TID JEEVAN Administration Albuterol/Ipratropium 3 ml 06/10/20 13:00 06/21/20 14:09 Ipratropium/Albuterol Sulfate 3 Ml Neb NEB 3 ml [id number] JEEVAN Administration Amiodarone HCl 200 mg 06/20/20 09:00 06/21/20 08:44 Amiodarone 200 Mg Tab PO 200 mg DAILY JEEVAN Administration Bisacodyl 10 mg 06/09/20 17:59 06/14/20 16:24 Bisacodyl 10 Mg Supp IN 10 mg Q8H PRN Administration Constipation Enoxaparin Sodium 40 mg 06/15/20 09:00 06/21/20 08:44 Enoxaparin Sodium 40 Mg/0.4 Ml Syringe SC 40 mg 0900 JEEVAN Administration Famotidine 20 mg 06/13/20 21:00 06/21/20 08:43 Famotidine 20 Mg Tab PER TUBE 20 mg Q12HR JEEVAN Administration Fentanyl Citrate 2,000 mcg/ 100 mls @ 0 mls/hr 06/19/20 15:15 06/20/20 18:37 Sodium Chloride IV 07/19/20 15:15 100 mls INF JEEVAN Administration Protocol Per Protocol Dexmedetomidine HCl 400 mcg/ 100 mls @ 0 mls/hr 06/21/20 10:15 06/21/20 10:32 Sodium Chloride IVPB 100 mls INF JEEVAN Administration Protocol Titrate Levothyroxine Sodium 100 mcg 06/13/20 06:00 06/21/20 05:27 Levothyroxine Sodium 100 Mcg Tab PO 100 mcg 0600 JEEVAN Administration Lorazepam 2 mg 06/19/20 15:15 06/21/20 04:07 Lorazepam 2 Mg/Ml Vial SLOW IVP 07/19/20 15:15 2 mg Q1H PRN Administration Breakthrough agitation Methylprednisolone Sodium Succinate 40 mg 06/13/20 12:00 06/21/20 11:34 Methylprednisolone Sod Succ 40 Mg Vial IVP 40 mg Q6HR JEEVAN Administration Morphine Sulfate 2 mg 06/19/20 10:28 06/21/20 03:54 Morphine 2 Mg/Ml Vial SLOW IVP 2 mg Q4H PRN Administration Mild-Moderate Pain (1-5) Polyethylene Glycol 17 gm 06/15/20 09:00 06/21/20 08:44 Polyethylene Glycol 3350 17 Gm Packet PO 17 gm DAILY JEEVAN Administration Sodium Chloride 10 ml 06/13/20 09:00 06/21/20 08:44 Flush - Normal Saline 10 Ml Syringe IVF 10 ml Q12HR JEEVAN Administration - Exam Eye: anicteric sclera ENT: moist mucosa Neck - other findings: Tracheostomy Heart: RRR Respiratory: CTAB Gastrointestinal: soft Extremities: no cyanosis Extremities - other findings: PEG tube Skin: no rashes Psychiatric - other findings: Unable to assess Hosp A/P - Plan -Assessment (1) Acute respiratory failure with hypoxia Code(s): J96.01 - ACUTE RESPIRATORY FAILURE WITH HYPOXIA Status: Acute (2) Aspiration pneumonia Code(s): J69.0 - PNEUMONITIS DUE TO INHALATION OF FOOD AND VOMIT Status: Acute Qualifiers: Aspiration pneumonia type: unspecified Laterality: bilateral (3) Atrial fibrillation Code(s): I48.91 - UNSPECIFIED ATRIAL FIBRILLATION Status: Chronic Qualifiers: (4) Chronic indwelling Lozoya catheter Code(s): Z97.8 - PRESENCE OF OTHER SPECIFIED DEVICES Status: Chronic (5) Chronic hyponatremia Code(s): E87.1 - HYPO-OSMOLALITY AND HYPONATREMIA Status: Chronic (6) Hypothyroidism Code(s): E03.9 - HYPOTHYROIDISM, UNSPECIFIED Status: Chronic (7) Normocytic anemia Code(s): D64.9 - ANEMIA, UNSPECIFIED Status: Chronic (8) Quadriplegia Code(s): G82.50 - QUADRIPLEGIA, UNSPECIFIED Status: Chronic (9) Encephalopathy Code(s): G93.40 - ENCEPHALOPATHY, UNSPECIFIED Status: Resolved (10) Sepsis Code(s): A41.9 - SEPSIS, UNSPECIFIED ORGANISM Status: Resolved Qualifiers: Acute respiratory failure type: with hypoxia - Plan Patient is on amiodarone, solumedrol, synthroid Off of antibiotics. s/p trach and peg 06/19 prognosis guarded was extubated on 06/11 and got re-intubated 06/12
[2020-06-22] MEDS: methylPREDNISolone Sod Succ 40 MG VIAL IVP SCH ×4 (00:18→17:10)
[2020-06-22 03:29] LABS: #Lymphocytes 0.4 thou/uL (1.20-3.40); #Monocytes 0.6 thou/uL (0.11-0.59); #Neutrophils 11.9 thou/uL (1.40-6.50); %Basophils 0.1 % (0.0-1.0); %Eosinophils 0.3 % (0.0-10.0); %Lymphocytes 2.9 % (21.0-51.0); %Monocytes 4.4 % (0.0-10.0); %Neutrophils 92.4 % (42.0-75.0); Mean Corpuscular HGB CONC 32.6 g/dL (32.0-36.0); Mean Corpuscular Hemoglobin 30.6 pg (27.0-31.0); Mean Corpuscular Volume 93.9 fL (78.0-98.0); Mean Platelet Volume 7.4 fL (7.4-10.4); Platelet Count 433 thou/uL (130-400); RBC Distribution Width 16.3 % (11.5-14.5); Red Blood Cell (RBC) Count 3.26 mill/uL (4.20-5.40); White Blood Cell (WBC) Count 12.9 thou/uL (4.8-10.8)
[2020-06-22 03:40] LABS: ALT (SGPT) 51 U/L (8-55); AST (SGOT) 26 U/L (5-34); Albumin 3.6 g/dL (3.4-4.8); Alkaline Phosphatase 137 U/L (40-110); Anion Gap 14 mmol/L (10-20); BUN (Urea Nitrogen) 24 mg/dL (9.8-20.1); Bilirubin, Total 0.8 mg/dL (0.2-1.2); Calc. Creatinine Clearance 145 mL/min (70-130); Calcium 8.9 mg/dL (7.8-10.44); Carbon Dioxide 25 mmol/L (23-31); Chloride 109 mmol/L (98-107); Estimated GFR-MDRD Greater than 90; Globulin 2.5 g/dL (2.4-3.5); Glucose 160 mg/dL (80-115); Potassium 3.8 mmol/L (3.5-5.1); Protein, Total 6.1 g/dL (6.0-8.3); Sodium 144 mmol/L (136-145)
[2020-06-22] MEDS: Levothyroxine Sodium 100 MCG TAB PO SCH (05:30)
[2020-06-22] MEDS: Amiodarone 200 MG TAB PO SCH (08:09)
[2020-06-22] MEDS: Enoxaparin Sodium 40 MG/0.4 ML SYRINGE SC SCH (08:09)
[2020-06-22] MEDS: Polyethylene Glycol 3350 17 GM Packet PO SCH (08:09)
[2020-06-22] MEDS: Famotidine 20 MG TAB PER TUBE SCH ×2 (08:09→21:42)
[2020-06-22] MEDS: Lactinex Tablet PO SCH ×3 (08:09→21:42)
--- NOTE | 2020-06-22 08:34 | PRG ---
DATE OF SERVICE: 06/22/2020 35 minutes of critical care time. SUBJECTIVE: The patient remains on mechanical ventilation through a tracheostomy. She is awake, alert. She periodically gets agitated and requires some sedation. OBJECTIVE: VITAL SIGNS: Temperature 98.8, pulse 68, blood pressure 152/84, and O2 saturation 100%. HEENT: Unremarkable. NECK: Trach in good position. LUNGS: Clear anteriorly. CARDIAC: S1 and S2, regular. ABDOMEN: Soft. EXTREMITIES: Edematous throughout. LABORATORY DATA: Sodium 144, potassium 3.8, chloride 109, CO2 of 25, BUN 24, creatinine 0.5, glucose 116. White count 12.9, hematocrit 30, and platelet count 433. ASSESSMENT: 1. Acute on chronic respiratory failure, requiring mechanical ventilation through tracheostomy. 2. Status post aspiration pneumonia. 3. Supraventricular tachycardia. PLAN: I will try her on CPAP mode, see how she does. She appears stable, otherwise. Job ID: [id number]
[2020-06-22] MEDS: Lorazepam 2 MG/ML VIAL SLOW IVP PRN ×3 (10:08→17:10)
--- NOTE | 2020-06-22 15:04 | PDOC.HOSPP ---
- Subjective Encounter Date: 06/22/20 Encounter Time: 10:00 Subjective: Pt seen for followup re: resp failure. Nonverbal, unable to complete ROS. - Objective Vital Signs & Weight: Vital Signs (12 hours) Temp Pulse Resp BP Pulse Ox 06/22/20 14:50 67 161/79 H 06/22/20 14:00 14 06/22/20 13:29 61 178/96 H 06/22/20 12:00 97.7 F 06/22/20 11:54 13 06/22/20 10:32 55 L 152/105 H 06/22/20 08:00 18 06/22/20 07:52 100 06/22/20 07:25 66 183/95 H 06/22/20 07:00 98.8 F 06/22/20 06:00 32 H 06/22/20 04:00 99.1 F 35 H Weight Admit Weight 162 lb 4.163 oz Weight 168 lb 10.458 oz Most Recent Monitor Data Heart Rate from ECG 67 NIBP 161/79 NIBP BP-Mean 118 Respiration from ECG 16 SpO2 100 I&O: 06/21/20 06/22/20 06/23/20 06:59 06:59 06:59 Intake Total 2039 1799.2 160 Output Total 1665 1900 1030 Balance 374 -100.8 -870 Result Diagrams: 06/22/20 03:21 06/22/20 03:00 Additional Labs: Labs and MARs reviewed by me Hospitalist ROS - Review of Systems ROS unobtainable: due to mental status - Medication Medications: Active Medications Generic Name Dose Route Start Last Admin Trade Name Freq PRN Reason Stop Dose Admin Acidophilus 1 tab 06/09/20 15:00 06/22/20 14:16 Lactinex Tablet PO 1 tab TID JEEVAN Administration Albuterol/Ipratropium 3 ml 06/10/20 13:00 06/22/20 13:28 Ipratropium/Albuterol Sulfate 3 Ml Neb NEB 3 ml [id number] JEEVAN Administration Amiodarone HCl 200 mg 06/20/20 09:00 06/22/20 08:09 Amiodarone 200 Mg Tab PO 200 mg DAILY JEEVAN Administration Bisacodyl 10 mg 06/09/20 17:59 06/14/20 16:24 Bisacodyl 10 Mg Supp [place] 10 mg Q8H PRN Administration Constipation Enoxaparin Sodium 40 mg 06/15/20 09:00 06/22/20 08:09 Enoxaparin Sodium 40 Mg/0.4 Ml Syringe SC 40 mg 0900 JEEVAN Administration Famotidine 20 mg 06/13/20 21:00 06/22/20 08:09 Famotidine 20 Mg Tab PER TUBE 20 mg Q12HR JEEVAN Administration Fentanyl Citrate 2,000 mcg/ 100 mls @ 0 mls/hr 06/19/20 15:15 06/20/20 18:37 Sodium Chloride IV 07/19/20 15:15 100 mls INF JEEVAN Administration Protocol Per Protocol Dexmedetomidine HCl 400 mcg/ 100 mls @ 0 mls/hr 06/21/20 10:15 06/21/20 21:09 Sodium Chloride IVPB 100 mls INF JEEVAN Administration Protocol Titrate Levothyroxine Sodium 100 mcg 06/13/20 06:00 06/22/20 05:30 Levothyroxine Sodium 100 Mcg Tab PO 100 mcg 0600 JEEVAN Administration Lorazepam 2 mg 06/19/20 15:15 06/22/20 13:52 Lorazepam 2 Mg/Ml Vial SLOW IVP 07/19/20 15:15 2 mg Q1H PRN Administration Breakthrough agitation Methylprednisolone Sodium Succinate 20 mg 06/22/20 12:00 06/22/20 11:06 Methylprednisolone Sod Succ 40 Mg Vial IVP 20 mg Q6HR JEEVAN Administration Morphine Sulfate 2 mg 06/19/20 10:28 06/21/20 03:54 Morphine 2 Mg/Ml Vial SLOW IVP 2 mg Q4H PRN Administration Mild-Moderate Pain (1-5) Morphine Sulfate 4 mg 06/19/20 10:06 06/22/20 02:47 Morphine 4 Mg/Ml Vial SLOW IVP 4 mg Q4H PRN Administration Moderate to Severe Pain (6-10) Polyethylene Glycol 17 gm 06/15/20 09:00 06/22/20 08:09 Polyethylene Glycol 3350 17 Gm Packet PO 17 gm DAILY JEEVAN Administration Sodium Chloride 10 ml 06/13/20 09:00 06/22/20 08:09 Flush - Normal Saline 10 Ml Syringe IVF 10 ml Q12HR JEEVAN Administration - Exam General - other findings: s/p trach Eye: anicteric sclera ENT: moist mucosa Neck - other findings: trach Heart: RRR Respiratory: CTAB Gastrointestinal: soft Skin: no rashes Psychiatric - other findings: Unable to assess Hosp A/P - Plan -Assessment (1) Acute respiratory failure with hypoxia Code(s): J96.01 - ACUTE RESPIRATORY FAILURE WITH HYPOXIA Status: Acute (2) Aspiration pneumonia Code(s): J69.0 - PNEUMONITIS DUE TO INHALATION OF FOOD AND VOMIT Status: Acute Qualifiers: Aspiration pneumonia type: unspecified Laterality: bilateral (3) Chronic indwelling Lozoya catheter Code(s): Z97.8 - PRESENCE OF OTHER SPECIFIED DEVICES Status: Chronic (4) Atrial fibrillation Code(s): I48.91 - UNSPECIFIED ATRIAL FIBRILLATION Status: Chronic Qualifiers: (5) Chronic hyponatremia Code(s): E87.1 - HYPO-OSMOLALITY AND HYPONATREMIA Status: Chronic (6) Normocytic anemia Code(s): D64.9 - ANEMIA, UNSPECIFIED Status: Chronic (7) Hypothyroidism Code(s): E03.9 - HYPOTHYROIDISM, UNSPECIFIED Status: Chronic (8) Quadriplegia Code(s): G82.50 - QUADRIPLEGIA, UNSPECIFIED Status: Chronic (9) Encephalopathy Code(s): G93.40 - ENCEPHALOPATHY, UNSPECIFIED Status: Resolved (10) Sepsis Code(s): A41.9 - SEPSIS, UNSPECIFIED ORGANISM Status: Resolved Qualifiers: Acute respiratory failure type: with hypoxia - Plan Continue amiodarone, solumedrol, synthroid Off of antibiotics. s/p trach and peg Jun 19, 2020. prognosis guarded was extubated on 06/11 and got re-intubated 06/12
[2020-06-23] MEDS: methylPREDNISolone Sod Succ 40 MG VIAL IVP SCH ×4 (00:34→18:07)
[2020-06-23] MEDS: Lorazepam 2 MG/ML VIAL SLOW IVP PRN (00:34)
[2020-06-23 04:06] LABS: #Lymphocytes 0.4 thou/uL (1.20-3.40); #Monocytes 0.8 thou/uL (0.11-0.59); #Neutrophils 15.9 thou/uL (1.40-6.50); %Eosinophils 0.1 % (0.0-10.0); %Lymphocytes 2.2 % (21.0-51.0); %Monocytes 4.8 % (0.0-10.0); %Neutrophils 92.9 % (42.0-75.0); Hemoglobin 10.4 g/dL (12.0-16.0); Mean Corpuscular HGB CONC 32.6 g/dL (32.0-36.0); Mean Corpuscular Hemoglobin 30.8 pg (27.0-31.0); Mean Corpuscular Volume 94.4 fL (78.0-98.0); Mean Platelet Volume 7.7 fL (7.4-10.4); Platelet Count 393 thou/uL (130-400); RBC Distribution Width 16.1 % (11.5-14.5); Red Blood Cell (RBC) Count 3.38 mill/uL (4.20-5.40); White Blood Cell (WBC) Count 17.1 thou/uL (4.8-10.8)
[2020-06-23 04:25] LABS: ALT (SGPT) 41 U/L (8-55); AST (SGOT) 18 U/L (5-34); Albumin 3.6 g/dL (3.4-4.8); Alkaline Phosphatase 127 U/L (40-110); Anion Gap 13 mmol/L (10-20); BUN (Urea Nitrogen) 19 mg/dL (9.8-20.1); Calc. Creatinine Clearance 155 mL/min (70-130); Calcium 8.9 mg/dL (7.8-10.44); Carbon Dioxide 23 mmol/L (23-31); Chloride 107 mmol/L (98-107); Estimated GFR-MDRD Greater than 90; Globulin 2.6 g/dL (2.4-3.5); Glucose 138 mg/dL (80-115); Potassium 3.5 mmol/L (3.5-5.1); Protein, Total 6.2 g/dL (6.0-8.3); Sodium 139 mmol/L (136-145)
[2020-06-23] MEDS: Levothyroxine Sodium 100 MCG TAB PO SCH (06:10)
[2020-06-23] MEDS ORDERED: Potassium Chloride 20 MEQ TAB PO SCH (06:30)
[2020-06-23] MEDS: Amiodarone 200 MG TAB PO SCH (08:50)
[2020-06-23] MEDS: Enoxaparin Sodium 40 MG/0.4 ML SYRINGE SC SCH (08:51)
[2020-06-23] MEDS: Famotidine 20 MG TAB PER TUBE SCH ×2 (08:51→20:25)
[2020-06-23] MEDS: Polyethylene Glycol 3350 17 GM Packet PO SCH (08:51)
[2020-06-23] MEDS: Lactinex Tablet PO SCH ×3 (08:51→20:25)
--- NOTE | 2020-06-23 11:08 | PRG ---
DATE OF SERVICE: 06/23/2020 35 minutes of critical care time. SUBJECTIVE: The patient remains on mechanical ventilation through a tracheostomy. She is still having problems with what sounds to be Nando-Barrera breathing. OBJECTIVE: VITAL SIGNS: On exam, temperature is 99.0, pulse 64, blood pressure 154/93, O2 saturation 100%. 24-hour intake 1968, output 2636. HEENT: Unremarkable. NECK: No adenopathy or JVD. Trach in good position. LUNGS: Clear. CARDIAC: S1, S2. Regular. ABDOMEN: Soft. EXTREMITIES: Contracted. LABORATORY DATA: White blood cell count 17, hematocrit 31.9, platelet count 393. Sodium 139, potassium 3.5, BUN 19, creatinine 0.5, and glucose 138. ASSESSMENT: 1. Quadriplegia. 2. Acute respiratory failure requiring mechanical ventilation through tracheostomy. 3. Supraventricular tachycardia. PLAN: 1. We will try T-piece today. Nando-Barrera respirations really do not require anything in terms of medical treatment other than optimizing heart failure if the patient has that. 2. Discontinue the Precedex drip as I do not think that is working, add baclofen for spasticity as she takes this at home. Job ID: [id number]
[2020-06-23] MEDS: Baclofen 10 MG TAB PER TUBE SCH ×2 (14:52→20:25)
--- NOTE | 2020-06-23 15:29 | PDOC.HOSPP ---
- Subjective Encounter Date: 06/23/20 Encounter Time: 11:30 Subjective: Pt seen for followup re: acute respiratory failure. Nonverbal, could not complete ROS. - Objective Vital Signs & Weight: Vital Signs (12 hours) Temp Pulse Resp BP Pulse Ox 06/23/20 13:08 64 16 06/23/20 12:00 98.9 F 100 06/23/20 10:00 19 06/23/20 08:00 99.0 F 06/23/20 07:39 30 H 100 06/23/20 07:34 30 H 06/23/20 07:08 58 L 167/91 H 06/23/20 06:00 21 H 06/23/20 04:00 99.1 F 18 Weight Admit Weight 162 lb 4.163 oz Weight 169 lb 15.622 oz Most Recent Monitor Data Heart Rate from ECG 68 NIBP 139/77 NIBP BP-Mean 95 Respiration from ECG 17 SpO2 100 I&O: 06/22/20 06/23/20 06/24/20 06:59 06:59 06:59 Intake Total 1799.2 1968.4 1140 Output Total 1900 2636 690 Balance -100.8 -667.6 450 Result Diagrams: 06/23/20 03:27 06/23/20 03:27 Additional Labs: Labs and MAR reviewed by ks Hospitalist ROS - Review of Systems ROS unobtainable: due to mental status - Medication Medications: Active Medications Generic Name Dose Route Start Last Admin Trade Name Freq PRN Reason Stop Dose Admin Acidophilus 1 tab 06/09/20 15:00 06/23/20 14:52 Lactinex Tablet PO 1 tab TID JEEVAN Administration Albuterol/Ipratropium 3 ml 06/10/20 13:00 06/23/20 13:08 Ipratropium/Albuterol Sulfate 3 Ml Neb NEB 3 ml [id number] JEEVAN Administration Amiodarone HCl 200 mg 06/20/20 09:00 06/23/20 08:50 Amiodarone 200 Mg Tab PO 200 mg DAILY JEEVAN Administration Baclofen 10 mg 06/23/20 15:00 06/23/20 14:52 Baclofen 10 Mg Tab PER TUBE 10 mg TID JEEVAN Administration Bisacodyl 10 mg 06/09/20 17:59 06/14/20 16:24 Bisacodyl 10 Mg Supp [place] 10 mg Q8H PRN Administration Constipation Enoxaparin Sodium 40 mg 06/15/20 09:00 06/23/20 08:51 Enoxaparin Sodium 40 Mg/0.4 Ml Syringe SC 40 mg 0900 JEEVAN Administration Famotidine 20 mg 06/13/20 21:00 06/23/20 08:51 Famotidine 20 Mg Tab PER TUBE 20 mg Q12HR JEEVAN Administration Fentanyl Citrate 2,000 mcg/ 100 mls @ 0 mls/hr 06/19/20 15:15 06/20/20 18:37 Sodium Chloride IV 07/19/20 15:15 100 mls INF JEEVAN Administration Protocol Per Protocol Levothyroxine Sodium 100 mcg 06/13/20 06:00 06/23/20 06:10 Levothyroxine Sodium 100 Mcg Tab PO 100 mcg 0600 JEEVAN Administration Lorazepam 2 mg 06/19/20 15:15 06/23/20 00:34 Lorazepam 2 Mg/Ml Vial SLOW IVP 07/19/20 15:15 2 mg Q1H PRN Administration Breakthrough agitation Methylprednisolone Sodium Succinate 20 mg 06/22/20 12:00 06/23/20 12:29 Methylprednisolone Sod Succ 40 Mg Vial IVP 20 mg Q6HR JEEVAN Administration Morphine Sulfate 2 mg 06/19/20 10:28 06/21/20 03:54 Morphine 2 Mg/Ml Vial SLOW IVP 2 mg Q4H PRN Administration Mild-Moderate Pain (1-5) Morphine Sulfate 4 mg 06/19/20 10:06 06/22/20 02:47 Morphine 4 Mg/Ml Vial SLOW IVP 4 mg Q4H PRN Administration Moderate to Severe Pain (6-10) Polyethylene Glycol 17 gm 06/15/20 09:00 06/23/20 08:51 Polyethylene Glycol 3350 17 Gm Packet PO 17 gm DAILY JEEVAN Administration Sodium Chloride 10 ml 06/13/20 09:00 06/23/20 08:51 Flush - Normal Saline 10 Ml Syringe IVF 10 ml Q12HR JEEVAN Administration - Exam General - other findings: on vent through trach Eye: anicteric sclera ENT: moist mucosa Neck - other findings: tracheostomy Heart: RRR Respiratory: CTAB Gastrointestinal: soft Extremities: no cyanosis Skin: no rashes Psychiatric - other findings: Unable to assess Hosp A/P - Plan -Assessment (1) Acute respiratory failure with hypoxia Code(s): J96.01 - ACUTE RESPIRATORY FAILURE WITH HYPOXIA Status: Acute (2) Aspiration pneumonia Code(s): J69.0 - PNEUMONITIS DUE TO INHALATION OF FOOD AND VOMIT Status: Acute Qualifiers: Aspiration pneumonia type: unspecified Laterality: bilateral (3) Chronic indwelling Lozoya catheter Code(s): Z97.8 - PRESENCE OF OTHER SPECIFIED DEVICES Status: Chronic (4) Atrial fibrillation Code(s): I48.91 - UNSPECIFIED ATRIAL FIBRILLATION Status: Chronic Qualifiers: (5) Chronic hyponatremia Code(s): E87.1 - HYPO-OSMOLALITY AND HYPONATREMIA Status: Chronic (6) Normocytic anemia Code(s): D64.9 - ANEMIA, UNSPECIFIED Status: Chronic (7) Hypothyroidism Code(s): E03.9 - HYPOTHYROIDISM, UNSPECIFIED Status: Chronic (8) Quadriplegia Code(s): G82.50 - QUADRIPLEGIA, UNSPECIFIED Status: Chronic (9) Encephalopathy Code(s): G93.40 - ENCEPHALOPATHY, UNSPECIFIED Status: Resolved (10) Sepsis Code(s): A41.9 - SEPSIS, UNSPECIFIED ORGANISM Status: Resolved Qualifiers: Acute respiratory failure type: with hypoxia - Plan Pt is on amiodarone, solumedrol, synthroid s/p trach and peg Jun 19, 2020. prognosis guarded was extubated on 06/11 and got re-intubated 06/12 Baclofen added.
[2020-06-24] MEDS: methylPREDNISolone Sod Succ 40 MG VIAL IVP SCH ×2 (00:09→05:56)
[2020-06-24 05:50] LABS: #Lymphocytes 0.5 thou/uL (1.20-3.40); #Monocytes 0.6 thou/uL (0.11-0.59); #Neutrophils 14.8 thou/uL (1.40-6.50); %Basophils 0.2 % (0.0-1.0); %Eosinophils 0.2 % (0.0-10.0); %Neutrophils 92.7 % (42.0-75.0); Hemoglobin 10.5 g/dL (12.0-16.0); Mean Corpuscular HGB CONC 32.3 g/dL (32.0-36.0); Mean Corpuscular Hemoglobin 31.1 pg (27.0-31.0); Mean Corpuscular Volume 96.2 fL (78.0-98.0); Mean Platelet Volume 7.7 fL (7.4-10.4); Platelet Count 344 thou/uL (130-400); RBC Distribution Width 16.3 % (11.5-14.5); Red Blood Cell (RBC) Count 3.38 mill/uL (4.20-5.40); White Blood Cell (WBC) Count 15.9 thou/uL (4.8-10.8)
[2020-06-24] MEDS: Levothyroxine Sodium 100 MCG TAB PO SCH (05:57)
[2020-06-24 06:17] LABS: ALT (SGPT) 43 U/L (8-55); AST (SGOT) 27 U/L (5-34); Albumin 3.2 g/dL (3.4-4.8); Alkaline Phosphatase 141 U/L (40-110); Anion Gap 14 mmol/L (10-20); BUN (Urea Nitrogen) 21 mg/dL (9.8-20.1); Bilirubin, Total 0.7 mg/dL (0.2-1.2); Calc. Creatinine Clearance 160 mL/min (70-130); Calcium 8.5 mg/dL (7.8-10.44); Carbon Dioxide 19 mmol/L (23-31); Chloride 109 mmol/L (98-107); Estimated GFR-MDRD Greater than 90; Globulin 2.7 g/dL (2.4-3.5); Glucose 192 mg/dL (80-115); Potassium 3.8 mmol/L (3.5-5.1); Protein, Total 5.9 g/dL (6.0-8.3); Sodium 138 mmol/L (136-145)
[2020-06-24] MEDS: Lactinex Tablet PO SCH ×3 (08:35→20:25)
[2020-06-24] MEDS: Famotidine 20 MG TAB PER TUBE SCH ×2 (08:35→20:25)
[2020-06-24] MEDS: Polyethylene Glycol 3350 17 GM Packet PO SCH (08:35)
[2020-06-24] MEDS: Amiodarone 200 MG TAB PO SCH (08:35)
[2020-06-24] MEDS: Baclofen 10 MG TAB PER TUBE SCH ×3 (08:35→20:25)
[2020-06-24] MEDS: Enoxaparin Sodium 40 MG/0.4 ML SYRINGE SC SCH (08:36)
[2020-06-24] MEDS ORDERED: DC Sedation Protocol FS ONE (08:48)
--- NOTE | 2020-06-24 09:28 | PRG ---
DATE OF SERVICE: 06/24/2020 SUBJECTIVE: Mary Alice Mai remains awake, alert, responsive in the ICU. Trach and PEG in place. No distress. OBJECTIVE: VITAL SIGNS: She sats 100% on T-tube, pulse 98, blood pressure 150/87, respiratory rate 18. CHEST: No wheezing. No crackles. CARDIAC: Normal S1, S2. No gallops. ABDOMEN: No masses. LABORATORY DATA: Unremarkable. White count normal. IMPRESSION: 1. Respiratory failure, status post trach and PEG. 2. Supraventricular tachycardia. 3. Essentially quadriplegic. PLAN: She can be transferred to the MICU. Still full code. We will continue PT, supportive care, probably is going to follow. She is going to eventually require placement. TIME SPENT: One-half hour of critical time. Job ID: [id number]
[2020-06-24] MEDS ORDERED: Ondansetron PF 4 MG/2 ML Vial IVP PRN (11:10)
[2020-06-24] MEDS: Bisacodyl 10 MG SUPP PR PRN (11:23)
--- NOTE | 2020-06-24 15:24 | PDOC.PALPN ---
Palliative Progress Note - Subjective Lethargic this morning, opens eyes but drifts back to sleep. Does not appear to be in distress. - Objective Vital Signs: Vital Signs - Most Recent Temp Pulse Resp BP Pulse Ox 98.5 F 95 24 H 167/91 H 100 06/24/20 08:00 06/24/20 13:08 06/24/20 13:08 06/23/20 07:08 06/24/20 08:00 - Physical Exam Constitutional: NAD HEENT: EOMI, moist MMs, sclera anicteric Respiratory: no wheezing, unlabored breathing Deviation from normal: Via trach Cardiovascular: RRR Gastrointestinal: soft, non-tender Deviation from normal: PEG Genitourinary: elias catheter Musculoskeletal: pulses present, diffuse muscle atrophy, muscle wasting Deviation from normal: Quadriplegic Deviation from normal: Quadriplegic Skin: no lesions, no rash - Assessment (1) Palliative care encounter Code(s): Z51.5 - ENCOUNTER FOR PALLIATIVE CARE Current Visit: Yes Status: Acute (2) Acute respiratory failure with hypoxia Code(s): J96.01 - ACUTE RESPIRATORY FAILURE WITH HYPOXIA Current Visit: No Status: Acute (3) Heart failure Code(s): I50.9 - HEART FAILURE, UNSPECIFIED Current Visit: No Status: Acute Qualifiers: Heart failure type: diastolic Heart failure chronicity: acute on chronic Qualified Code(s): I50.33 - Acute on chronic diastolic (congestive) heart failure - Plan Plan: Ms Mai is hopeful to transition to a skilled setting, with eventual transition to home setting. Her MPOA is aware of her wishes and her father who is in assisted living also advocates for her, and for now Ms Enrique wishes are to remain with full resuscitation measures and continue aggressive measures to establish a quality of life. She is hoped to be transitioned to IMCU with subsequent transition to an LTAC. Palliative Care will sign off as Goal of care has been met. If we can be of assistance again to revisit goal of care, resuscitation status, disease prognosis assistance, family support or coping please reconsult our team. [25] minutes spent on this encounter with >50% of the time in counseling and coordination of care. - ROS Constitutional: alert, weakness
--- NOTE | 2020-06-24 15:30 | PDOC.HOSPP ---
- Subjective Encounter Date: 06/24/20 Encounter Time: 10:30 Subjective: Patient seen for follow-up regarding acute respiratory failure. Status post tracheostomy, patient is nonverbal, could not complete review of systems. - Objective Vital Signs & Weight: Vital Signs (12 hours) Temp Pulse Resp Pulse Ox 06/24/20 13:08 95 24 H 06/24/20 08:00 98.5 F 100 06/24/20 04:55 71 20 100 06/24/20 04:00 99.1 F Weight Admit Weight 162 lb 4.163 oz Weight 166 lb 10.711 oz Most Recent Monitor Data Heart Rate from ECG 106 NIBP 125/87 NIBP BP-Mean 116 Respiration from ECG 22 SpO2 98 I&O: 06/23/20 06/24/20 06/25/20 06:59 06:59 06:59 Intake Total 1968.4 2683 80 Output Total 2636 2240 387 Balance -667.6 443 -307 Result Diagrams: 06/24/20 05:37 06/24/20 05:37 Additional Labs: I reviewed patient's labs and MAR EKG Reviewed by me: Yes (Telemetry: Sinus rhythm) Hospitalist ROS - Review of Systems ROS unobtainable: due to mental status - Medication Medications: Active Medications Generic Name Dose Route Start Last Admin Trade Name Freq PRN Reason Stop Dose Admin Acidophilus 1 tab 06/09/20 15:00 06/24/20 08:35 Lactinex Tablet PO 1 tab TID JEEVAN Administration Albuterol/Ipratropium 3 ml 06/10/20 13:00 06/24/20 13:08 Ipratropium/Albuterol Sulfate 3 Ml Neb NEB 3 ml [id number] JEEVAN Administration Amiodarone HCl 200 mg 06/20/20 09:00 06/24/20 08:35 Amiodarone 200 Mg Tab PO 200 mg DAILY JEEVAN Administration Baclofen 10 mg 06/23/20 15:00 06/24/20 08:35 Baclofen 10 Mg Tab PER TUBE 10 mg TID JEEVAN Administration Bisacodyl 10 mg 06/09/20 17:59 06/24/20 11:23 Bisacodyl 10 Mg Supp [place] 10 mg Q8H PRN Administration Constipation Enoxaparin Sodium 40 mg 06/15/20 09:00 06/24/20 08:36 Enoxaparin Sodium 40 Mg/0.4 Ml Syringe SC 40 mg 0900 JEEVAN Administration Famotidine 20 mg 06/13/20 21:00 06/24/20 08:35 Famotidine 20 Mg Tab PER TUBE 20 mg Q12HR JEEVAN Administration Levothyroxine Sodium 100 mcg 06/13/20 06:00 06/24/20 05:57 Levothyroxine Sodium 100 Mcg Tab PO 100 mcg 0600 JEEVAN Administration Morphine Sulfate 2 mg 06/19/20 10:28 06/21/20 03:54 Morphine 2 Mg/Ml Vial SLOW IVP 2 mg Q4H PRN Administration Mild-Moderate Pain (1-5) Morphine Sulfate 4 mg 06/19/20 10:06 06/22/20 02:47 Morphine 4 Mg/Ml Vial SLOW IVP 4 mg Q4H PRN Administration Moderate to Severe Pain (6-10) Ondansetron HCl 4 mg 06/24/20 11:10 06/24/20 11:23 Ondansetron Pf 4 Mg/2 Ml Vial IVP 4 mg Q6H PRN Administration Nausea/Vomiting Polyethylene Glycol 17 gm 06/15/20 09:00 06/24/20 08:35 Polyethylene Glycol 3350 17 Gm Packet PO 17 gm DAILY JEEVAN Administration Sodium Chloride 10 ml 06/13/20 09:00 06/24/20 08:35 Flush - Normal Saline 10 Ml Syringe IVF 10 ml Q12HR JEEVAN Administration - Exam General Appearance: awake alert ENT: moist mucosa Neck - other findings: Tracheostomy Heart: RRR Respiratory: CTAB Gastrointestinal: soft Gastrointestinal - other findings: PEG tube Extremities: 2+ LE edema Skin: no rashes Psychiatric: normal affect Hosp A/P - Plan -Assessment (1) Acute respiratory failure with hypoxia Code(s): J96.01 - ACUTE RESPIRATORY FAILURE WITH HYPOXIA Status: Acute (2) Aspiration pneumonia Code(s): J69.0 - PNEUMONITIS DUE TO INHALATION OF FOOD AND VOMIT Status: Acute Qualifiers: Aspiration pneumonia type: unspecified Laterality: bilateral (3) Chronic indwelling Lozoya catheter Code(s): Z97.8 - PRESENCE OF OTHER SPECIFIED DEVICES Status: Chronic (4) Atrial fibrillation Code(s): I48.91 - UNSPECIFIED ATRIAL FIBRILLATION Status: Chronic Qualifiers: (5) Chronic hyponatremia Code(s): E87.1 - HYPO-OSMOLALITY AND HYPONATREMIA Status: Chronic (6) Normocytic anemia Code(s): D64.9 - ANEMIA, UNSPECIFIED Status: Chronic (7) Hypothyroidism Code(s): E03.9 - HYPOTHYROIDISM, UNSPECIFIED Status: Chronic (8) Quadriplegia Code(s): G82.50 - QUADRIPLEGIA, UNSPECIFIED Status: Chronic (9) Encephalopathy Code(s): G93.40 - ENCEPHALOPATHY, UNSPECIFIED Status: Resolved (10) Sepsis Code(s): A41.9 - SEPSIS, UNSPECIFIED ORGANISM Status: Resolved Qualifiers: Acute respiratory failure type: with hypoxia - Plan Continue amiodarone, solumedrol. Continue synthroid s/p trach and peg Jun 19, 2020. was extubated on 06/11 and got re-intubated 06/12 Baclofen added. Patient to be transferred to [facility].
[2020-06-25 04:47] LABS: ALT (SGPT) 39 U/L (8-55); AST (SGOT) 18 U/L (5-34); Albumin 3.3 g/dL (3.4-4.8); Alkaline Phosphatase 137 U/L (40-110); Anion Gap 14 mmol/L (10-20); BUN (Urea Nitrogen) 25 mg/dL (9.8-20.1); Bilirubin, Total 0.7 mg/dL (0.2-1.2); Calc. Creatinine Clearance 140 mL/min (70-130); Carbon Dioxide 24 mmol/L (23-31); Chloride 105 mmol/L (98-107); Estimated GFR-MDRD Greater than 90; Globulin 2.7 g/dL (2.4-3.5); Glucose 177 mg/dL (80-115); Potassium 3.5 mmol/L (3.5-5.1); Sodium 139 mmol/L (136-145)
[2020-06-25 04:54] LABS: Band 11 % (5-11); Hemoglobin 10.5 g/dL (12.0-16.0); Hypochromia SLIGHT = 6-15 cells (100X) (0-5/hpf); Lymphocytes 4 % (21-51); MDiff Complete? YES; Mean Corpuscular HGB CONC 32.2 g/dL (32.0-36.0); Mean Corpuscular Hemoglobin 30.4 pg (27.0-31.0); Mean Corpuscular Volume 94.6 fL (78.0-98.0); Mean Platelet Volume 8.2 fL (7.4-10.4); Monocytes 7 % (0-10); Neutrophil 78 % (42-75); Platelet Count 284 thou/uL (130-400); Platelet Morphology Comment Appears Adequate; RBC Distribution Width 15.9 % (11.5-14.5); Red Blood Cell (RBC) Count 3.44 mill/uL (4.20-5.40); White Blood Cell (WBC) Count 14.2 thou/uL (4.8-10.8)
[2020-06-25] MEDS: Levothyroxine Sodium 100 MCG TAB PO SCH (05:38)
[2020-06-25] MEDS ORDERED: Potassium Chloride 20 MEQ TAB PO SCH (06:45)
[2020-06-25] MEDS: Lactinex Tablet PO SCH ×3 (08:58→20:38)
[2020-06-25] MEDS: Enoxaparin Sodium 40 MG/0.4 ML SYRINGE SC SCH (08:58)
[2020-06-25] MEDS: Famotidine 20 MG TAB PER TUBE SCH ×2 (08:59→20:36)
[2020-06-25] MEDS: Baclofen 10 MG TAB PER TUBE SCH ×3 (08:59→20:38)
[2020-06-25] MEDS: predniSONE 20 MG TAB PO SCH (08:59)
[2020-06-25] MEDS: Polyethylene Glycol 3350 17 GM Packet PO SCH (08:59)
[2020-06-25] MEDS: Amiodarone 200 MG TAB PO SCH (08:59)
--- NOTE | 2020-06-25 09:32 | PRG ---
DATE OF SERVICE: 06/25/2020 SUBJECTIVE: This morning, she is awake, alert, responsive, on a trach collar. In no respiratory distress. OBJECTIVE: VITAL SIGNS: Pulse 72, respiratory rate 27, saturations 100%, on trach collar . CHEST: No wheezing, no crackles. CARDIAC: Normal S1, S2. ABDOMEN: No masses. LABORATORY DATA: Unremarkable. ASSESSMENT: Respiratory failure, severe deconditioning, quadriplegia, pneumonia, sepsis, congestive heart failure. PLAN: She is going to be transferred out of the ICU, continue cardiac care, continue PT, supportive care, eventually placement. Discontinue daily lab. Job ID: [id number]
--- NOTE | 2020-06-25 14:41 | PDOC.HOSPP ---
- Subjective Encounter Date: 06/25/20 Encounter Time: 11:45 Subjective: Patient seen for follow-up regarding respiratory failure. Patient is nonverbal, unable to complete review of systems. - Objective Vital Signs & Weight: Vital Signs (12 hours) Temp Pulse Resp Pulse Ox 06/25/20 13:28 77 23 H 96 06/25/20 09:00 99.1 F 06/25/20 08:00 100 06/25/20 07:10 72 27 H 100 06/25/20 05:42 98.1 F Weight Admit Weight 162 lb 4.163 oz Weight 170 lb 6.677 oz Most Recent Monitor Data Heart Rate from ECG 71 NIBP 122/88 NIBP BP-Mean 99 Respiration from ECG 20 SpO2 100 I&O: 06/24/20 06/25/20 06/26/20 06:59 06:59 06:59 Intake Total 2683 976 421 Output Total 2240 1012 279 Balance 443 -36 142 Result Diagrams: 06/25/20 04:00 06/25/20 04:00 Additional Labs: I reviewed patient's labs and MAR EKG Reviewed by me: Yes (Telemetry: Normal sinus rhythm) Hospitalist ROS - Review of Systems ROS unobtainable: due to mental status - Medication Medications: Active Medications Generic Name Dose Route Start Last Admin Trade Name Freq PRN Reason Stop Dose Admin Acidophilus 1 tab 06/09/20 15:00 06/25/20 08:58 Lactinex Tablet PO 1 tab TID JEEVAN Administration Albuterol/Ipratropium 3 ml 06/10/20 13:00 06/25/20 13:28 Ipratropium/Albuterol Sulfate 3 Ml Neb NEB 3 ml [id number] JEEVAN Administration Amiodarone HCl 200 mg 06/20/20 09:00 06/25/20 08:59 Amiodarone 200 Mg Tab PO 200 mg DAILY JEEVAN Administration Baclofen 10 mg 06/23/20 15:00 06/25/20 08:59 Baclofen 10 Mg Tab PER TUBE 10 mg TID JEEVAN Administration Bisacodyl 10 mg 06/09/20 17:59 06/24/20 11:23 Bisacodyl 10 Mg Supp [place] 10 mg Q8H PRN Administration Constipation Enoxaparin Sodium 40 mg 06/15/20 09:00 06/25/20 08:58 Enoxaparin Sodium 40 Mg/0.4 Ml Syringe SC 40 mg 0900 JEEVAN Administration Famotidine 20 mg 06/13/20 21:00 06/25/20 08:59 Famotidine 20 Mg Tab PER TUBE 20 mg Q12HR JEEVAN Administration Levothyroxine Sodium 100 mcg 06/13/20 06:00 06/25/20 05:38 Levothyroxine Sodium 100 Mcg Tab PO 100 mcg 0600 JEEVAN Administration Morphine Sulfate 2 mg 06/19/20 10:28 06/21/20 03:54 Morphine 2 Mg/Ml Vial SLOW IVP 2 mg Q4H PRN Administration Mild-Moderate Pain (1-5) Morphine Sulfate 4 mg 06/19/20 10:06 06/22/20 02:47 Morphine 4 Mg/Ml Vial SLOW IVP 4 mg Q4H PRN Administration Moderate to Severe Pain (6-10) Ondansetron HCl 4 mg 06/24/20 11:10 06/24/20 11:23 Ondansetron Pf 4 Mg/2 Ml Vial IVP 4 mg Q6H PRN Administration Nausea/Vomiting Polyethylene Glycol 17 gm 06/15/20 09:00 06/25/20 08:59 Polyethylene Glycol 3350 17 Gm Packet PO 17 gm DAILY JEEVAN Administration Prednisone 20 mg 06/25/20 08:00 06/25/20 08:59 Prednisone 20 Mg Tab PO 20 mg QAM-WM JEEVAN Administration Sodium Chloride 10 ml 06/13/20 09:00 06/25/20 08:59 Flush - Normal Saline 10 Ml Syringe IVF 10 ml Q12HR JEEVAN Administration - Exam General Appearance: awake alert Eye: anicteric sclera ENT: moist mucosa Neck - other findings: tracheostomy Heart: RRR Respiratory: CTAB Gastrointestinal: soft Musculoskeletal: no muscle wasting Psychiatric: normal affect, normal behavior Hosp A/P - Plan -Assessment (1) Acute respiratory failure with hypoxia Code(s): J96.01 - ACUTE RESPIRATORY FAILURE WITH HYPOXIA Status: Acute (2) Aspiration pneumonia Code(s): J69.0 - PNEUMONITIS DUE TO INHALATION OF FOOD AND VOMIT Status: Acute Qualifiers: Aspiration pneumonia type: unspecified Laterality: bilateral (3) Chronic indwelling Lozoya catheter Code(s): Z97.8 - PRESENCE OF OTHER SPECIFIED DEVICES Status: Chronic (4) Atrial fibrillation Code(s): I48.91 - UNSPECIFIED ATRIAL FIBRILLATION Status: Chronic Qualifiers: (5) Chronic hyponatremia Code(s): E87.1 - HYPO-OSMOLALITY AND HYPONATREMIA Status: Chronic (6) Normocytic anemia Code(s): D64.9 - ANEMIA, UNSPECIFIED Status: Chronic (7) Hypothyroidism Code(s): E03.9 - HYPOTHYROIDISM, UNSPECIFIED Status: Chronic (8) Quadriplegia Code(s): G82.50 - QUADRIPLEGIA, UNSPECIFIED Status: Chronic (9) Encephalopathy Code(s): G93.40 - ENCEPHALOPATHY, UNSPECIFIED Status: Resolved (10) Sepsis Code(s): A41.9 - SEPSIS, UNSPECIFIED ORGANISM Status: Resolved Qualifiers: Acute respiratory failure type: with hypoxia - Plan Continue amiodarone. Continue synthroid s/p trach and peg Jun 19, 2020. was extubated on 06/11 and got re-intubated 06/12 Continue Baclofen. Patient to be transferred to [facility].
[2020-06-26] MEDS: Levothyroxine Sodium 100 MCG TAB PO SCH (06:02)
[2020-06-26] MEDS: Amiodarone 200 MG TAB PO SCH (08:47)
[2020-06-26] MEDS: predniSONE 20 MG TAB PO SCH (08:47)
[2020-06-26] MEDS: Polyethylene Glycol 3350 17 GM Packet PO SCH (08:48)
[2020-06-26] MEDS: Lactinex Tablet PO SCH ×3 (08:48→21:07)
[2020-06-26] MEDS: Baclofen 10 MG TAB PER TUBE SCH ×3 (08:48→21:07)
[2020-06-26] MEDS: Enoxaparin Sodium 40 MG/0.4 ML SYRINGE SC SCH (08:48)
[2020-06-26] MEDS: Famotidine 20 MG TAB PER TUBE SCH ×2 (08:48→21:07)
--- NOTE | 2020-06-26 10:00 | PRG ---
DATE OF SERVICE: 06/26/2020 OBJECTIVE: This morning, she is awake and responsive. OBJECTIVE: VITAL SIGNS: Temperature 97, pulse sats 100% on 5 L, blood pressure 120/82. CHEST: Anterior rhonchi. CARDIAC: Normal S1 and S2. No gallops. ABDOMEN: No masses. ASSESSMENT AND PLAN: Quadriplegia, respiratory failure, congestive heart failure, trach and PEG in place. Unfortunate situation. The patient would like to go home. We will have to probably get Home Health. We will follow. Job ID: [id number]
--- NOTE | 2020-06-26 18:11 | PDOC.HOSPP ---
- Subjective Encounter Date: 06/26/20 Encounter Time: 13:00 Subjective: Patient seen for follow-up regarding acute hypoxic respiratory failure. And answering questions by nodding or shaking head, denies any complaints. - Objective Vital Signs & Weight: Vital Signs (12 hours) Temp Pulse Resp Pulse Ox 06/26/20 15:16 98.9 F 06/26/20 13:08 50 L 17 97 06/26/20 12:00 97.5 F L 06/26/20 08:03 100 06/26/20 08:00 72 20 100 06/26/20 07:24 97.5 F L Weight Admit Weight 162 lb 4.163 oz Weight 170 lb 3.15 oz Most Recent Monitor Data Heart Rate from ECG 70 NIBP 125/85 NIBP BP-Mean 98 Respiration from ECG 20 SpO2 92 I&O: 06/25/20 06/26/20 06/27/20 06:59 06:59 06:59 Intake Total 976 1301 240 Output Total 1012 1429 Balance -36 -128 240 Result Diagrams: 06/25/20 04:00 06/25/20 04:00 Additional Labs: I reviewed patient's labs and MAR EKG Reviewed by me: Yes (Telemetry: Normal sinus rhythm) Hospitalist ROS - Review of Systems Cardiovascular: denies: chest pain, palpitations, orthopnea, paroxysmal noc. dyspnea, edema, light headedness Gastrointestinal: denies: nausea, vomiting, abdominal pain, diarrhea, constipation, melena, hematochezia - Medication Medications: Active Medications Generic Name Dose Route Start Last Admin Trade Name Freq PRN Reason Stop Dose Admin Acidophilus 1 tab 06/09/20 15:00 06/26/20 15:53 Lactinex Tablet PO 1 tab TID JEEVAN Administration Albuterol/Ipratropium 3 ml 06/10/20 13:00 06/26/20 13:08 Ipratropium/Albuterol Sulfate 3 Ml Neb NEB 3 ml [id number] JEEVAN Administration Amiodarone HCl 200 mg 06/20/20 09:00 06/26/20 08:47 Amiodarone 200 Mg Tab PO 200 mg DAILY JEEVAN Administration Baclofen 10 mg 06/23/20 15:00 06/26/20 15:53 Baclofen 10 Mg Tab PER TUBE 10 mg TID JEEVAN Administration Bisacodyl 10 mg 06/09/20 17:59 06/24/20 11:23 Bisacodyl 10 Mg Supp [place] 10 mg Q8H PRN Administration Constipation Enoxaparin Sodium 40 mg 06/15/20 09:00 06/26/20 08:48 Enoxaparin Sodium 40 Mg/0.4 Ml Syringe SC 40 mg 09 JEEVAN Administration Famotidine 20 mg 06/13/20 21:00 06/26/20 08:48 Famotidine 20 Mg Tab PER TUBE 20 mg Q12HR JEEVAN Administration Levothyroxine Sodium 100 mcg 06/13/20 06:00 06/26/20 06:02 Levothyroxine Sodium 100 Mcg Tab PO 100 mcg 0600 JEEVAN Administration Morphine Sulfate 2 mg 06/19/20 10:28 06/21/20 03:54 Morphine 2 Mg/Ml Vial SLOW IVP 2 mg Q4H PRN Administration Mild-Moderate Pain (1-5) Morphine Sulfate 4 mg 06/19/20 10:06 06/22/20 02:47 Morphine 4 Mg/Ml Vial SLOW IVP 4 mg Q4H PRN Administration Moderate to Severe Pain (6-10) Ondansetron HCl 4 mg 06/24/20 11:10 06/24/20 11:23 Ondansetron Pf 4 Mg/2 Ml Vial IVP 4 mg Q6H PRN Administration Nausea/Vomiting Polyethylene Glycol 17 gm 06/15/20 09:00 06/26/20 08:48 Polyethylene Glycol 3350 17 Gm Packet PO 17 gm DAILY JEEVAN Administration Prednisone 20 mg 06/25/20 08:00 06/26/20 08:47 Prednisone 20 Mg Tab PO 20 mg QAM-WM JEEVAN Administration Sodium Chloride 10 ml 06/13/20 09:00 06/26/20 08:49 Flush - Normal Saline 10 Ml Syringe IVF 10 ml Q12HR JEEVAN Administration - Exam General Appearance: awake alert Eye: anicteric sclera ENT: moist mucosa Neck - other findings: Tracheostomy Heart: RRR Respiratory: CTAB Gastrointestinal: soft, non-tender Gastrointestinal - other findings: G-tube Skin: no rashes Psychiatric: normal affect Hosp A/P - Plan -Assessment (1) Acute respiratory failure with hypoxia Code(s): J96.01 - ACUTE RESPIRATORY FAILURE WITH HYPOXIA Status: Acute (2) Aspiration pneumonia Code(s): J69.0 - PNEUMONITIS DUE TO INHALATION OF FOOD AND VOMIT Status: Acute Qualifiers: Aspiration pneumonia type: unspecified Laterality: bilateral (3) Atrial fibrillation Code(s): I48.91 - UNSPECIFIED ATRIAL FIBRILLATION Status: Chronic Qualifiers: (4) Quadriplegia Code(s): G82.50 - QUADRIPLEGIA, UNSPECIFIED Status: Chronic (5) Chronic hyponatremia Code(s): E87.1 - HYPO-OSMOLALITY AND HYPONATREMIA Status: Chronic (6) Normocytic anemia Code(s): D64.9 - ANEMIA, UNSPECIFIED Status: Chronic (7) Hypothyroidism Code(s): E03.9 - HYPOTHYROIDISM, UNSPECIFIED Status: Chronic (8) Chronic indwelling Lozoya catheter Code(s): Z97.8 - PRESENCE OF OTHER SPECIFIED DEVICES Status: Chronic (9) Encephalopathy Code(s): G93.40 - ENCEPHALOPATHY, UNSPECIFIED Status: Resolved (10) Sepsis Code(s): A41.9 - SEPSIS, UNSPECIFIED ORGANISM Status: Resolved Qualifiers: Acute respiratory failure type: with hypoxia - Plan Patient is clinically improving. Continue baclofen. Continue Synthroid. Patient is off of antibiotics. Continue prednisone 20 mg daily. Continue MiraLAX 17 g daily. Continue PEG tube feeds. Continue amiodarone. DVT prophylaxis with Lovenox 40 mg daily.
[2020-06-27] MEDS: Levothyroxine Sodium 100 MCG TAB PO SCH (06:20)
--- NOTE | 2020-06-27 09:28 | PRG ---
DATE OF SERVICE: 06/27/2020 SUBJECTIVE: This morning, she is awake, alert, responsive, in no distress. #[address] OBJECTIVE: VITAL SIGNS: Temperature 97, respiratory rate 21, saturations 100% on trach collar, pulse 99, and blood pressure 120/80. CHEST: No wheezing. No crackles. CARDIAC: Normal S1 and S2. No gallops. ABDOMEN: No masses. ASSESSMENT: 1. Quadriplegic, status post trach. 2. Respiratory failure. PLAN: I am going to probably change to a cuffless trach tomorrow. Eventually placement. We will follow. Job ID: [id number]
[2020-06-27] MEDS: Lactinex Tablet PO SCH ×2 (10:59→17:05)
[2020-06-27] MEDS: Enoxaparin Sodium 40 MG/0.4 ML SYRINGE SC SCH (10:59)
[2020-06-27] MEDS: Polyethylene Glycol 3350 17 GM Packet PO SCH (10:59)
[2020-06-27] MEDS: predniSONE 20 MG TAB PO SCH (11:00)
[2020-06-27] MEDS: Famotidine 20 MG TAB PER TUBE SCH (11:00)
[2020-06-27] MEDS: Amiodarone 200 MG TAB PO SCH (11:00)
[2020-06-27] MEDS: Baclofen 10 MG TAB PER TUBE SCH ×2 (11:04→17:05)
--- NOTE | 2020-06-27 18:22 | PDOC.HOSPP ---
- Subjective Encounter Date: 06/27/20 Encounter Time: 13:00 Subjective: Patient was seen in follow-up for acute respiratory failure with hypoxia. She denies any complaints. She is communicating through nonverbal means. - Objective Vital Signs & Weight: Vital Signs (12 hours) Temp Pulse Resp Pulse Ox 06/27/20 14:36 99.2 F 06/27/20 14:16 107 H 22 H 98 06/27/20 08:14 100 06/27/20 08:13 99 21 H 99 06/27/20 07:10 97.8 F Weight Admit Weight 162 lb 4.163 oz Weight 170 lb 3.15 oz Most Recent Monitor Data Heart Rate from ECG 75 NIBP 191/115 NIBP BP-Mean 140 Respiration from ECG 17 SpO2 98 I&O: 06/26/20 06/27/20 06/28/20 06:59 06:59 06:59 Intake Total 1301 1000 240 Output Total 1429 975 350 Balance -128 25 -110 Result Diagrams: 06/25/20 04:00 06/25/20 04:00 Additional Labs: I reviewed patient's labs and MAR EKG Reviewed by me: Yes (Telemetry: Normal sinus rhythm) Hospitalist ROS - Review of Systems Cardiovascular: denies: chest pain, palpitations, orthopnea, paroxysmal noc. dyspnea, edema, light headedness Gastrointestinal: denies: nausea, vomiting, abdominal pain, diarrhea, constipation - Medication Medications: Active Medications Generic Name Dose Route Start Last Admin Trade Name Freq PRN Reason Stop Dose Admin Acidophilus 1 tab 06/09/20 15:00 06/27/20 17:05 Lactinex Tablet PO 1 tab TID JEEVAN Administration Albuterol/Ipratropium 3 ml 06/10/20 13:00 06/27/20 14:16 Ipratropium/Albuterol Sulfate 3 Ml Neb NEB 3 ml [id number] JEEVAN Administration Amiodarone HCl 200 mg 06/20/20 09:00 06/27/20 11:00 Amiodarone 200 Mg Tab PO 200 mg DAILY JEEVAN Administration Baclofen 10 mg 06/23/20 15:00 06/27/20 17:05 Baclofen 10 Mg Tab PER TUBE 10 mg TID JEEVAN Administration Bisacodyl 10 mg 06/09/20 17:59 06/24/20 11:23 Bisacodyl 10 Mg Supp MT 10 mg Q8H PRN Administration Constipation Enoxaparin Sodium 40 mg 06/15/20 09:00 06/27/20 10:59 Enoxaparin Sodium 40 Mg/0.4 Ml Syringe SC 40 mg 09 JEEVAN Administration Famotidine 20 mg 06/13/20 21:00 06/27/20 11:00 Famotidine 20 Mg Tab PER TUBE 20 mg Q12HR JEEVAN Administration Levothyroxine Sodium 100 mcg 06/13/20 06:00 06/27/20 06:20 Levothyroxine Sodium 100 Mcg Tab PO 100 mcg 0600 JEEVAN Administration Morphine Sulfate 2 mg 06/19/20 10:28 06/21/20 03:54 Morphine 2 Mg/Ml Vial SLOW IVP 2 mg Q4H PRN Administration Mild-Moderate Pain (1-5) Morphine Sulfate 4 mg 06/19/20 10:06 06/22/20 02:47 Morphine 4 Mg/Ml Vial SLOW IVP 4 mg Q4H PRN Administration Moderate to Severe Pain (6-10) Ondansetron HCl 4 mg 06/24/20 11:10 06/24/20 11:23 Ondansetron Pf 4 Mg/2 Ml Vial IVP 4 mg Q6H PRN Administration Nausea/Vomiting Polyethylene Glycol 17 gm 06/15/20 09:00 06/27/20 10:59 Polyethylene Glycol 3350 17 Gm Packet PO 17 gm DAILY JEEVAN Administration Prednisone 20 mg 06/25/20 08:00 06/27/20 11:00 Prednisone 20 Mg Tab PO 20 mg QAM-WM JEEVAN Administration Sodium Chloride 10 ml 06/13/20 09:00 06/27/20 11:03 Flush - Normal Saline 10 Ml Syringe IVF 10 ml Q12HR JEEVAN Administration - Exam General Appearance: awake alert Eye: anicteric sclera ENT: normocephalic atraumatic Neck: symmetric Neck - other findings: Tracheostomy Heart: RRR Respiratory: no wheezes Gastrointestinal: non-tender, non-distended Gastrointestinal - other findings: PEG tube Skin: no rashes Psychiatric: normal affect Hosp A/P - Plan -Assessment (1) Acute respiratory failure with hypoxia Code(s): J96.01 - ACUTE RESPIRATORY FAILURE WITH HYPOXIA Status: Acute (2) Hypothyroidism Code(s): E03.9 - HYPOTHYROIDISM, UNSPECIFIED Status: Chronic (3) Atrial fibrillation Code(s): I48.91 - UNSPECIFIED ATRIAL FIBRILLATION Status: Chronic Qualifiers: (4) Quadriplegia Code(s): G82.50 - QUADRIPLEGIA, UNSPECIFIED Status: Chronic (5) Chronic hyponatremia Code(s): E87.1 - HYPO-OSMOLALITY AND HYPONATREMIA Status: Chronic (6) Normocytic anemia Code(s): D64.9 - ANEMIA, UNSPECIFIED Status: Chronic (7) Chronic indwelling Lozoya catheter Code(s): Z97.8 - PRESENCE OF OTHER SPECIFIED DEVICES Status: Chronic (8) Encephalopathy Code(s): G93.40 - ENCEPHALOPATHY, UNSPECIFIED Status: Resolved (9) Sepsis Code(s): A41.9 - SEPSIS, UNSPECIFIED ORGANISM Status: Resolved Qualifiers: Acute respiratory failure type: with hypoxia (10) Aspiration pneumonia Code(s): J69.0 - PNEUMONITIS DUE TO INHALATION OF FOOD AND VOMIT Status: Resolved Qualifiers: Aspiration pneumonia type: unspecified Laterality: bilateral - Plan Patient is clinically improving. Status post tracheostomy and PEG tube placement. Patient is on baclofen. Patient is on Synthroid. Continue prednisone 20 mg daily. Continue PEG tube feeds. Continue amiodarone. DVT prophylaxis with Lovenox 40 mg subcutaneous daily.
[2020-06-28] MEDS: Famotidine 20 MG TAB PER TUBE SCH ×3 (03:41→21:13)
[2020-06-28] MEDS: Baclofen 10 MG TAB PER TUBE SCH ×4 (03:41→21:13)
[2020-06-28] MEDS: Lactinex Tablet PO SCH ×4 (03:42→21:13)
[2020-06-28] MEDS: Levothyroxine Sodium 100 MCG TAB PO SCH (06:28)
[2020-06-28] MEDS: predniSONE 20 MG TAB PO SCH (08:43)
[2020-06-28] MEDS: Polyethylene Glycol 3350 17 GM Packet PO SCH (08:44)
[2020-06-28] MEDS: Enoxaparin Sodium 40 MG/0.4 ML SYRINGE SC SCH (08:44)
[2020-06-28] MEDS: Amiodarone 200 MG TAB PO SCH (08:44)
--- NOTE | 2020-06-28 09:52 | PRG ---
DATE OF SERVICE: 06/28/2020 SUBJECTIVE: Mary Alice Mai, this morning is awake, alert, and responsive, in a trach collar for several days without any distress. OBJECTIVE: VITAL SIGNS: Sats 90%, temperature 97, pulse 56, and blood pressure 130/80. CHEST: No wheezing. No crackles. CARDIAC: Normal S1 and S2. No gallops. ABDOMEN: No masses. ASSESSMENT: Morbid obesity, paraplegia, respiratory failure, and severe deconditioning. PLAN: 1. I am going to switch to a cuffless trach with a speaking valve, eventually placement. 2. Supportive care. 3. Recurrent aspiration. Long-term prognosis is grave. Job ID: [id number]
--- NOTE | 2020-06-28 18:13 | PDOC.HOSPP ---
- Subjective Encounter Date: 06/28/20 Encounter Time: 07:30 Subjective: Patient seen for follow-up regarding acute hypoxic respiratory failure. He appears comfortable, denies any complaints. - Objective Vital Signs & Weight: Vital Signs (12 hours) Temp Pulse Resp Pulse Ox 06/28/20 15:36 96.8 F L 06/28/20 14:28 56 L 16 95 06/28/20 12:14 96.6 F L 06/28/20 08:52 56 L 17 98 06/28/20 07:59 97 06/28/20 07:28 97.0 F L Weight Admit Weight 162 lb 4.163 oz Weight 171 lb Most Recent Monitor Data Heart Rate from ECG 66 NIBP 135/82 NIBP BP-Mean 99 Respiration from ECG 22 SpO2 94 I&O: 06/27/20 06/28/20 06/29/20 06:59 06:59 06:59 Intake Total 1000 480 360 Output Total 975 350 475 Balance 25 130 -115 Result Diagrams: 06/25/20 04:00 06/25/20 04:00 Additional Labs: I reviewed patient's labs and MAR EKG Reviewed by me: Yes (Telemetry: Normal sinus rhythm) Hospitalist ROS - Review of Systems ROS unobtainable: due to mental status Cardiovascular: denies: chest pain, palpitations, orthopnea, paroxysmal noc. dyspnea, edema, light headedness Gastrointestinal: denies: nausea, vomiting, abdominal pain, diarrhea Skin: denies: rash, lesions, chris, bruising - Medication Medications: Active Medications Generic Name Dose Route Start Last Admin Trade Name Freq PRN Reason Stop Dose Admin Acidophilus 1 tab 06/09/20 15:00 06/28/20 15:54 Lactinex Tablet PO 1 tab TID JEEVAN Administration Albuterol/Ipratropium 3 ml 06/10/20 13:00 06/28/20 14:28 Ipratropium/Albuterol Sulfate 3 Ml Neb NEB 3 ml [id number] JEEVAN Administration Amiodarone HCl 200 mg 06/20/20 09:00 06/28/20 08:44 Amiodarone 200 Mg Tab PO 200 mg DAILY JEEVAN Administration Baclofen 10 mg 06/23/20 15:00 06/28/20 15:54 Baclofen 10 Mg Tab PER TUBE 10 mg TID JEEVAN Administration Bisacodyl 10 mg 06/09/20 17:59 06/24/20 11:23 Bisacodyl 10 Mg Supp NV 10 mg Q8H PRN Administration Constipation Enoxaparin Sodium 40 mg 06/15/20 09:00 06/28/20 08:44 Enoxaparin Sodium 40 Mg/0.4 Ml Syringe SC 40 mg 09 JEEVAN Administration Famotidine 20 mg 06/13/20 21:00 06/28/20 08:44 Famotidine 20 Mg Tab PER TUBE 20 mg Q12HR JEEVAN Administration Levothyroxine Sodium 100 mcg 06/13/20 06:00 06/28/20 06:28 Levothyroxine Sodium 100 Mcg Tab PO 100 mcg 0600 JEEVAN Administration Morphine Sulfate 2 mg 06/19/20 10:28 06/21/20 03:54 Morphine 2 Mg/Ml Vial SLOW IVP 2 mg Q4H PRN Administration Mild-Moderate Pain (1-5) Morphine Sulfate 4 mg 06/19/20 10:06 06/22/20 02:47 Morphine 4 Mg/Ml Vial SLOW IVP 4 mg Q4H PRN Administration Moderate to Severe Pain (6-10) Ondansetron HCl 4 mg 06/24/20 11:10 06/24/20 11:23 Ondansetron Pf 4 Mg/2 Ml Vial IVP 4 mg Q6H PRN Administration Nausea/Vomiting Polyethylene Glycol 17 gm 06/15/20 09:00 06/28/20 08:44 Polyethylene Glycol 3350 17 Gm Packet PO 17 gm DAILY JEEVAN Administration Prednisone 20 mg 06/25/20 08:00 06/28/20 08:43 Prednisone 20 Mg Tab PO 20 mg QAM-WM JEEVAN Administration Sodium Chloride 10 ml 06/13/20 09:00 06/28/20 08:55 Flush - Normal Saline 10 Ml Syringe IVF 10 ml Q12HR JEEVAN Administration - Exam General Appearance: awake alert Neck - other findings: Tracheostomy Heart: RRR Respiratory: CTAB Gastrointestinal: soft, non-tender Skin: no rashes Psychiatric: normal affect Hosp A/P - Plan -Assessment (1) Acute respiratory failure with hypoxia Code(s): J96.01 - ACUTE RESPIRATORY FAILURE WITH HYPOXIA Status: Acute (2) Hypothyroidism Code(s): E03.9 - HYPOTHYROIDISM, UNSPECIFIED Status: Chronic (3) Quadriplegia Code(s): G82.50 - QUADRIPLEGIA, UNSPECIFIED Status: Chronic (4) Atrial fibrillation Code(s): I48.91 - UNSPECIFIED ATRIAL FIBRILLATION Status: Chronic Qualifiers: (5) Chronic hyponatremia Code(s): E87.1 - HYPO-OSMOLALITY AND HYPONATREMIA Status: Chronic (6) Normocytic anemia Code(s): D64.9 - ANEMIA, UNSPECIFIED Status: Chronic (7) Chronic indwelling Lozoya catheter Code(s): Z97.8 - PRESENCE OF OTHER SPECIFIED DEVICES Status: Chronic (8) Encephalopathy Code(s): G93.40 - ENCEPHALOPATHY, UNSPECIFIED Status: Resolved (9) Sepsis Code(s): A41.9 - SEPSIS, UNSPECIFIED ORGANISM Status: Resolved Qualifiers: Acute respiratory failure type: with hypoxia (10) Aspiration pneumonia Code(s): J69.0 - PNEUMONITIS DUE TO INHALATION OF FOOD AND VOMIT Status: Resolved Qualifiers: Aspiration pneumonia type: unspecified Laterality: bilateral - Plan Quadriplegic patient admitted for acute hypoxic respiratory failure. Continue amiodarone. Continue synthroid. Discharge disposition: Home with home health once caregiver is trained to take care of tracheostomy and once supplies are arranged.
[2020-06-29 04:23] LABS: Anion Gap 12 mmol/L (10-20); BUN (Urea Nitrogen) 17 mg/dL (9.8-20.1); Calc. Creatinine Clearance 176 mL/min (70-130); Calcium 9.1 mg/dL (7.8-10.44); Carbon Dioxide 31 mmol/L (23-31); Chloride 99 mmol/L (98-107); Estimated GFR-MDRD Greater than 90; Glucose 96 mg/dL (80-115); Potassium 3.9 mmol/L (3.5-5.1); Sodium 138 mmol/L (136-145)
[2020-06-29 04:46] LABS: Band 38 % (5-11); Eosinophils 2 % (0-10); Hemoglobin 9.7 g/dL (12.0-16.0); Lymphocytes 11 % (21-51); MDiff Complete? YES; Mean Corpuscular Hemoglobin 32.1 pg (27.0-31.0); Mean Corpuscular Volume 94.2 fL (78.0-98.0); Mean Platelet Volume 8.1 fL (7.4-10.4); Monocytes 4 % (0-10); Myelocyte 2 % (0-0); Neutrophil 43 % (42-75); Platelet Count 328 thou/uL (130-400); Red Blood Cell (RBC) Count 3.04 mill/uL (4.20-5.40); White Blood Cell (WBC) Count 13.5 thou/uL (4.8-10.8)
[2020-06-29] MEDS: Levothyroxine Sodium 100 MCG TAB PO SCH (06:39)
[2020-06-29] MEDS: Baclofen 10 MG TAB PER TUBE SCH ×3 (08:56→20:22)
[2020-06-29] MEDS: Famotidine 20 MG TAB PER TUBE SCH ×2 (08:56→20:22)
[2020-06-29] MEDS: Lactinex Tablet PO SCH ×3 (08:56→20:22)
[2020-06-29] MEDS: predniSONE 20 MG TAB PO SCH (08:56)
[2020-06-29] MEDS: Amiodarone 200 MG TAB PO SCH ×2 (08:56→13:29)
[2020-06-29] MEDS: Enoxaparin Sodium 40 MG/0.4 ML SYRINGE SC SCH (08:56)
[2020-06-29] MEDS: Polyethylene Glycol 3350 17 GM Packet PO SCH (08:57)
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
[2020-06-30] MEDS: Levothyroxine Sodium 100 MCG TAB PO SCH (06:11)
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
[2020-06-30] MEDS: Famotidine 20 MG TAB PER TUBE SCH ×2 (09:18→21:22)
[2020-06-30] MEDS: predniSONE 20 MG TAB PO SCH (09:18)
[2020-06-30] MEDS: Lactinex Tablet PO SCH ×3 (09:18→21:22)
[2020-06-30] MEDS: Baclofen 10 MG TAB PER TUBE SCH ×3 (09:18→21:23)
[2020-06-30] MEDS: Polyethylene Glycol 3350 17 GM Packet PO SCH (09:19)
[2020-06-30] MEDS: Enoxaparin Sodium 40 MG/0.4 ML SYRINGE SC SCH (09:19)
[2020-06-30] MEDS: Amiodarone 200 MG TAB PO SCH (09:19)
[2020-06-30] MEDS ORDERED: predniSONE 20 MG TAB PO SCH (10:45)
--- NOTE | 2020-06-30 10:57 | PRG ---
DATE OF SERVICE: 06/30/2020 SUBJECTIVE: Mary Alice Mai is a 64-year-old female. No respiratory distress. Trach and PEG in place. OBJECTIVE: VITAL SIGNS: Temperature 98, pulse 61, saturations are 100% on 28% trach collar, and blood pressure 120/80. CHEST: No rhonchi. CARDIAC: Normal S1 and S2. No gallops. ABDOMEN: No masses. ASSESSMENT: 1. . 2. Tracheostomy and percutaneous endoscopic gastrostomy. 3. Retained secretions and severe deconditioning. PLAN: We tried to get placement for the patient. She will be transferred to the medical floor. She is unfortunately still full code as per her wishes. We will follow. Job ID: [id number]
[2020-07-01] MEDS: Levothyroxine Sodium 100 MCG TAB PO SCH (05:35)
[2020-07-01 06:38] LABS: Anion Gap 11 mmol/L (10-20); BUN (Urea Nitrogen) 14 mg/dL (9.8-20.1); Calc. Creatinine Clearance 158 mL/min (70-130); Calcium 8.7 mg/dL (7.8-10.44); Carbon Dioxide 31 mmol/L (23-31); Chloride 99 mmol/L (98-107); Estimated GFR-MDRD Greater than 90; Glucose 135 mg/dL (80-115); Potassium 3.4 mmol/L (3.5-5.1); Sodium 138 mmol/L (136-145)
[2020-07-01 07:16] LABS: #Eosinphils 0.1 thou/uL (0.0-0.7); #Lymphocytes 1.5 thou/uL (1.20-3.40); #Monocytes 0.7 thou/uL (0.11-0.59); #Neutrophils 8.9 thou/uL (1.40-6.50); %Basophils 0.1 % (0.0-1.0); %Monocytes 6.3 % (0.0-10.0); %Neutrophils 79.6 % (42.0-75.0); Hemoglobin 9.5 g/dL (12.0-16.0); MDiff Complete? YES; Mean Corpuscular HGB CONC 32.2 g/dL (32.0-36.0); Mean Corpuscular Hemoglobin 30.4 pg (27.0-31.0); Mean Corpuscular Volume 94.5 fL (78.0-98.0); Mean Platelet Volume 7.8 fL (7.4-10.4); Platelet Count 323 thou/uL (130-400); Red Blood Cell (RBC) Count 3.11 mill/uL (4.20-5.40); White Blood Cell (WBC) Count 11.1 thou/uL (4.8-10.8)
[2020-07-01] MEDS ORDERED: Potassium Chloride 20 MEQ TAB PO SCH (08:00)
[2020-07-01] MEDS: predniSONE 20 MG TAB PO SCH (08:52)
[2020-07-01] MEDS: Amiodarone 200 MG TAB PO SCH (08:52)
[2020-07-01] MEDS: Famotidine 20 MG TAB PER TUBE SCH ×2 (08:54→20:43)
[2020-07-01] MEDS: Lactinex Tablet PO SCH ×3 (08:54→20:43)
[2020-07-01] MEDS: Baclofen 10 MG TAB PER TUBE SCH ×3 (08:54→20:44)
[2020-07-01] MEDS: Enoxaparin Sodium 40 MG/0.4 ML SYRINGE SC SCH (09:03)
[2020-07-01] MEDS: Polyethylene Glycol 3350 17 GM Packet PO SCH (10:21)
--- NOTE | 2020-07-01 11:02 | PRG ---
DATE OF SERVICE: 07/01/2020 SUBJECTIVE: This morning, she is doing well. She has a speaking valve. #[address] OBJECTIVE: VITAL SIGNS: Sats 100%, temperature 98, pulse 75, blood pressure respirations 18. CHEST: No wheezing, no crackles. CARDIAC: Normal S1, S2. No gallops. ABDOMEN: No masses. LABORATORY DATA: Unremarkable. ASSESSMENT AND PLAN: Trach, quadriplegia, severe deconditioning, dysphagia. Home any time once we get approved. Job ID: [id number]
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
[2020-07-01] MEDS ORDERED: Sodium Bicarbonate Tab 325 MG TAB PER TUBE PRN (18:00)
[2020-07-01] MEDS ORDERED: Pancrelipase DR 12,000 1 CAP FS PRN (18:00)
[2020-07-02] MEDS: Levothyroxine Sodium 100 MCG TAB PO SCH (05:33)
[2020-07-02] MEDS: Lactinex Tablet PO SCH ×3 (08:23→20:44)
[2020-07-02] MEDS: Famotidine 20 MG TAB PER TUBE SCH ×2 (08:23→20:44)
[2020-07-02] MEDS: predniSONE 20 MG TAB PO SCH (08:23)
[2020-07-02] MEDS: Baclofen 10 MG TAB PER TUBE SCH ×3 (08:24→20:44)
[2020-07-02] MEDS: Amiodarone 200 MG TAB PO SCH (08:25)
[2020-07-02] MEDS: Polyethylene Glycol 3350 17 GM Packet PO SCH (08:26)
[2020-07-02] MEDS: Enoxaparin Sodium 40 MG/0.4 ML SYRINGE SC SCH (08:27)
--- NOTE | 2020-07-02 12:49 | PRG ---
DATE OF SERVICE: 07/02/2020 SUBJECTIVE: This morning, she is awake, alert, responsive, poor cough. OBJECTIVE: VITAL SIGNS: Temperature 96, pulse 58, saturations are 98% on 28% FiO2, blood pressure CHEST: Anterior rhonchi. CARDIAC: Normal S1, S2. No gallops. ABDOMEN: No masses. IMPRESSION AND PLAN: Respiratory failure, quadriplegia, trach, CHF, pneumonia, SVT. She will be discharged home with appropriate care. She is going to require neb treatments. She is going to require suction. She is going to require . I am going to probably DC and taper her steroids. Long-term prognosis is poor. I am going to check a sat on room air to see whether she is going to require supplemental oxygen with a trach. Job ID: [id number]
--- NOTE | 2020-07-02 18:04 | PDOC.HOSPP ---
- Subjective Encounter Date: 07/02/20 Subjective: Patient is feeling generally well today. She had no specific complaints. Her primary concern is the ability to safely transition to home. She had a number of questions regarding dust and air filters and air purifier's in such for home use. She does not have a lot of family or friends in her [place] who are going to be able to be available to her to help. She will obviously have some home health assistance. She would very much like to continue to work toward a time when she can get back to taking something p.o. - Objective Vital Signs & Weight: Vital Signs (12 hours) Temp Pulse Resp BP Pulse Ox 07/02/20 14:55 97 07/02/20 14:17 68 22 H 97 07/02/20 12:55 95/63 07/02/20 12:49 97.7 F 58 L 18 197/80 H 98 07/02/20 08:00 99 07/02/20 07:28 58 L 20 99 07/02/20 07:24 96.5 F L 59 L 16 108/68 100 Weight Admit Weight 162 lb 4.163 oz Weight 172 lb Most Recent Monitor Data Heart Rate from ECG 64 NIBP 106/76 NIBP BP-Mean 86 Respiration from ECG 18 SpO2 93 I&O: 07/01/20 07/02/20 07/03/20 06:59 06:59 06:59 Intake Total 830 1450 2040 Output Total 527 056 4859 Balance 430 500 140 Result Diagrams: 07/01/20 05:34 07/01/20 05:34 Hospitalist ROS - Medication Medications: Active Medications Generic Name Dose Route Start Last Admin Trade Name Smita PRN Reason Stop Dose Admin Acidophilus 1 tab 06/09/20 15:00 07/02/20 14:29 Lactinex Tablet PO 1 tab TID JEEVAN Administration Albuterol/Ipratropium 3 ml 06/10/20 13:00 07/02/20 14:17 Ipratropium/Albuterol Sulfate 3 Ml Neb NEB 3 ml [id number] JEEVAN Administration Amiodarone HCl 200 mg 06/20/20 09:00 07/02/20 08:25 Amiodarone 200 Mg Tab PO Not Given DAILY JEEVAN Baclofen 10 mg 06/23/20 15:00 07/02/20 14:29 Baclofen 10 Mg Tab PER TUBE 10 mg TID JEEVAN Administration Bisacodyl 10 mg 06/09/20 17:59 06/24/20 11:23 Bisacodyl 10 Mg Supp ND 10 mg Q8H PRN Administration Constipation Enoxaparin Sodium 40 mg 06/15/20 09:00 07/02/20 08:27 Enoxaparin Sodium 40 Mg/0.4 Ml Syringe SC 40 mg 0900 JEEVNA Administration Famotidine 20 mg 06/13/20 21:00 07/02/20 08:23 Famotidine 20 Mg Tab PER TUBE 20 mg Q12HR JEEVAN Administration Levothyroxine Sodium 100 mcg 06/13/20 06:00 07/02/20 05:33 Levothyroxine Sodium 100 Mcg Tab PO 100 mcg 0600 JEEVAN Administration Ondansetron HCl 4 mg 06/24/20 11:10 06/24/20 11:23 Ondansetron Pf 4 Mg/2 Ml Vial IVP 4 mg Q6H PRN Administration Nausea/Vomiting Polyethylene Glycol 17 gm 06/15/20 09:00 07/02/20 08:26 Polyethylene Glycol 3350 17 Gm Packet PO Not Given DAILY JEEVAN Sodium Chloride 10 ml 06/13/20 09:00 07/02/20 08:28 Flush - Normal Saline 10 Ml Syringe IVF 10 ml Q12HR JEEVAN Administration - Exam General Appearance: NAD, awake alert Heart: RRR, no murmur, no gallops, no rubs, normal peripheral pulses Respiratory: CTAB, no wheezes, no rales, no ronchi, normal chest expansion, no tachypnea, normal percussion Respiratory - other findings: Upper airway rhonchi Gastrointestinal: soft, non-tender, non-distended, normal bowel sounds, no palp able masses, no hepatomegaly, no splenomegaly, no bruit Extremities: no cyanosis, no clubbing, no edema Neurological - other findings: Incomplete quadriplegia Musculoskeletal: diffuse muscle atrophy Hosp A/P (1) Aspiration pneumonia Code(s): J69.0 - PNEUMONITIS DUE TO INHALATION OF FOOD AND VOMIT Status: Acute Qualifiers: Aspiration pneumonia type: unspecified Laterality: bilateral (2) Acute respiratory failure with hypoxia Code(s): J96.01 - ACUTE RESPIRATORY FAILURE WITH HYPOXIA Status: Acute (3) Chronic indwelling Lozoya catheter Code(s): Z97.8 - PRESENCE OF OTHER SPECIFIED DEVICES Status: Chronic (4) Hypothyroidism Code(s): E03.9 - HYPOTHYROIDISM, UNSPECIFIED Status: Chronic (5) Quadriplegia Code(s): G82.50 - QUADRIPLEGIA, UNSPECIFIED Status: Chronic (6) Atrial fibrillation Code(s): I48.91 - UNSPECIFIED ATRIAL FIBRILLATION Status: Chronic Qualifiers: (7) Chronic hyponatremia Code(s): E87.1 - HYPO-OSMOLALITY AND HYPONATREMIA Status: Chronic (8) Normocytic anemia Code(s): D64.9 - ANEMIA, UNSPECIFIED Status: Chronic (9) Encephalopathy Code(s): G93.40 - ENCEPHALOPATHY, UNSPECIFIED Status: Resolved (10) Sepsis Code(s): A41.9 - SEPSIS, UNSPECIFIED ORGANISM Status: Resolved Qualifiers: Acute respiratory failure type: with hypoxia (11) Dysphagia Code(s): R13.10 - DYSPHAGIA, UNSPECIFIED Status: Acute - Plan Aspiration pneumonia with acute respiratory failure: Patient has appeared to improve substantially. She is off antibiotics. She has a trach in place and is on trach collar. Pulmonary indicated they would be testing her room air saturations today. Nurses notes indicate that she was satt ing 97% without supplemental oxygen. Dysphagia: Patient is incapable of swallowing with any consistency at this time. She is on full nutrition via PEG tube. Recommendation is for Jevity 1.2 with 8 cans/day with 30 mL flush pre and post. We will need to come up with a regimen to spread that out through the day that will work for the patient's lifestyle at home. Incomplete quadriplegia: Patient has some movement of her upper extremities but not really her hands or her legs. She will need significant amount of assistance. She has someone living with her but will need additional home health services. Case management working on that. Disposition: Patient is likely prepared for discharge however it is a complicated transition. She will need supplies ordered prior to her discharge. Will likely need to work with the respiratory therapist in order to determine exactly what supplies she might be needing for trach care at home.
[2020-07-03] MEDS: Levothyroxine Sodium 100 MCG TAB PO SCH (06:12)
[2020-07-03] MEDS: Lactinex Tablet PO SCH ×3 (07:52→22:17)
[2020-07-03] MEDS: Famotidine 20 MG TAB PER TUBE SCH ×2 (07:52→21:41)
[2020-07-03] MEDS: Enoxaparin Sodium 40 MG/0.4 ML SYRINGE SC SCH (07:52)
[2020-07-03] MEDS: Baclofen 10 MG TAB PER TUBE SCH ×3 (07:53→21:42)
[2020-07-03] MEDS: Polyethylene Glycol 3350 17 GM Packet PO SCH (07:53)
[2020-07-03] MEDS: Amiodarone 200 MG TAB PO SCH (07:53)
[2020-07-03] MEDS: predniSONE 5 MG TAB PO SCH (07:53)
--- NOTE | 2020-07-03 09:25 | PRG ---
DATE OF SERVICE: 07/03/2020 SUBJECTIVE: Mary Alice Mai is a 64-year-old female. OBJECTIVE: GENERAL: Awake, alert, responsive. VITAL SIGNS: Temperature 98, pulse 73, saturations are 98% on 5 L, trach collar, blood pressure 163/100. CHEST: No wheezing. No crackles. CARDIAC: Normal S1, S2. No gallops. ABDOMEN: No masses. IMPRESSION: Respiratory failure, paraplegic, trach and PEG in place. DISPOSITION: Home any time once family has arranged home med for the patient. Medication as outlined. Job ID: [id number]
--- NOTE | 2020-07-03 16:05 | PDOC.HOSPP ---
- Subjective Encounter Date: 07/03/20 Encounter Time: 15:45 Subjective: f/u for resp failure with trach/PEG receiving nutritional support with Jevity 1.2 8 cans/24h. States she would like to get into her electric wheelchair for change of position and to get out of bed. - Objective Vital Signs & Weight: Vital Signs (12 hours) Temp Pulse Resp BP Pulse Ox 07/03/20 15:28 97.8 F 66 16 96/58 L 95 07/03/20 13:29 81 18 98 07/03/20 11:55 185/99 H 07/03/20 11:19 97.3 F L 76 17 184/101 H 100 07/03/20 08:00 98 07/03/20 07:40 73 16 96 07/03/20 07:31 98.2 F 78 16 163/104 H 98 Weight Admit Weight 162 lb 4.163 oz Weight 172 lb 9.6 oz Most Recent Monitor Data Heart Rate from ECG 64 NIBP 106/76 NIBP BP-Mean 86 Respiration from ECG 18 SpO2 93 I&O: 07/02/20 07/03/20 07/04/20 06:59 06:59 06:59 Intake Total 1450 2850 540 Output Total 950 1900 Balance 500 950 540 Result Diagrams: 07/01/20 05:34 07/01/20 05:34 Hospitalist ROS - Medication Medications: Active Medications Generic Name Dose Route Start Last Admin Trade Name Freq PRN Reason Stop Dose Admin Acidophilus 1 tab 06/09/20 15:00 07/03/20 13:55 Lactinex Tablet PO 1 tab TID JEEVAN Administration Albuterol/Ipratropium 3 ml 06/10/20 13:00 07/03/20 13:29 Ipratropium/Albuterol Sulfate 3 Ml Neb NEB 3 ml [id number] JEEVAN Administration Amiodarone HCl 200 mg 06/20/20 09:00 07/03/20 07:53 Amiodarone 200 Mg Tab PO 200 mg DAILY JEEVAN Administration Baclofen 10 mg 06/23/20 15:00 07/03/20 13:55 Baclofen 10 Mg Tab PER TUBE 10 mg TID JEEVAN Administration Bisacodyl 10 mg 06/09/20 17:59 06/24/20 11:23 Bisacodyl 10 Mg Supp [place] 10 mg Q8H PRN Administration Constipation Enoxaparin Sodium 40 mg 06/15/20 09:00 07/03/20 07:52 Enoxaparin Sodium 40 Mg/0.4 Ml Syringe SC 40 mg 09 JEEVAN Administration Famotidine 20 mg 06/13/20 21:00 07/03/20 07:52 Famotidine 20 Mg Tab PER TUBE 20 mg Q12HR JEEVAN Administration Levothyroxine Sodium 100 mcg 06/13/20 06:00 07/03/20 06:12 Levothyroxine Sodium 100 Mcg Tab PO 100 mcg 0600 JEEVAN Administration Ondansetron HCl 4 mg 06/24/20 11:10 06/24/20 11:23 Ondansetron Pf 4 Mg/2 Ml Vial IVP 4 mg Q6H PRN Administration Nausea/Vomiting Polyethylene Glycol 17 gm 06/15/20 09:00 07/03/20 07:53 Polyethylene Glycol 3350 17 Gm Packet PO Not Given DAILY JEEVAN Prednisone 5 mg 07/03/20 08:00 07/03/20 07:53 Prednisone 5 Mg Tab PO 5 mg QAM-WM JEEVAN Administration Sodium Chloride 10 ml 06/13/20 09:00 07/03/20 07:53 Flush - Normal Saline 10 Ml Syringe IVF 10 ml Q12HR JEEVAN Administration - Exam General Appearance: NAD, awake alert Eye: PERRL, anicteric sclera ENT: normocephalic atraumatic, no oropharyngeal lesions Neck: supple, symmetric, no JVD, no thyromegaly, no lymphadenopathy Neck - other findings: trach in place Heart: RRR, no gallops, no rubs, normal peripheral pulses Heart - other findings: S1, S2 Respiratory: tachypneic Respiratory - other findings: diminished in bases bilat Gastrointestinal: soft, non-tender, non-distended, normal bowel sounds Gastrointestinal - other findings: PEG in place Extremities: no cyanosis Skin: normal turgor Neurological: cranial nerve grossly intact Neurological - other findings: Paraplegia Musculoskeletal: generalized weakness, diffuse muscle atrophy Psychiatric: normal affect, A&O x 3 Hosp A/P (1) Aspiration pneumonia Code(s): J69.0 - PNEUMONITIS DUE TO INHALATION OF FOOD AND VOMIT Status: Acute Qualifiers: Aspiration pneumonia type: unspecified Laterality: bilateral Plan: s/p IV abx, continue pulmonary support, Trach in place (2) Acute respiratory failure with hypoxia Code(s): J96.01 - ACUTE RESPIRATORY FAILURE WITH HYPOXIA Status: Acute Plan: s/p Trach placement, suctioning PRN, O2 support, Duonebs, Prednisone (3) Paraplegia Code(s): G82.20 - PARAPLEGIA, UNSPECIFIED Status: Chronic Plan: Continue PT for mobilization, OOB to wheelchair, swing bed options (4) Dysphagia Code(s): R13.10 - DYSPHAGIA, UNSPECIFIED Status: Chronic Qualifiers: Dysphagia type: oropharyngeal phase Qualified Code(s): R13.12 - Dysphagia, oropharyngeal phase Plan: PEG tube placed, Jevity 1.2 8 cans/24h - Plan plan discussed w/ family, PT/OT, social welfare administrator, respiratory therapy Stable currently Continue pulmonary support and trach care Nutritional support with Jevity 1.2 OOB to wheelchair CM coordinating for swing bed
[2020-07-04] MEDS: Levothyroxine Sodium 100 MCG TAB PO SCH (05:32)
[2020-07-04] MEDS: predniSONE 5 MG TAB PO SCH (08:18)
[2020-07-04] MEDS: Baclofen 10 MG TAB PER TUBE SCH ×3 (08:19→20:57)
[2020-07-04] MEDS: Lactinex Tablet PO SCH ×3 (08:19→20:57)
[2020-07-04] MEDS: Polyethylene Glycol 3350 17 GM Packet PO SCH ×2 (08:19→08:40)
[2020-07-04] MEDS: Enoxaparin Sodium 40 MG/0.4 ML SYRINGE SC SCH (08:19)
[2020-07-04] MEDS: Famotidine 20 MG TAB PER TUBE SCH ×2 (08:19→20:57)
[2020-07-04] MEDS: Amiodarone 200 MG TAB PO SCH (08:20)
--- NOTE | 2020-07-04 10:41 | PRG ---
DATE OF SERVICE: 07/04/2020 SUBJECTIVE: This morning, she is better, in no distress. OBJECTIVE: VITAL SIGNS: Temperature 97, pulse 47, saturations are 93 on trach collar, blood pressure 140/90. CHEST: No wheezing. No crackles. CARDIAC: Normal S1, normal S2. No gallops. ABDOMEN: Soft. IMPRESSION: 1. Respiratory failure, paraplegia, quadriplegia. 2. Trach, PEG, severe deconditioning. We are in the process of transfer to a swing bed until she is able to be taken care at home by her family. Otherwise, continue supportive care. Job ID: [id number]
--- NOTE | 2020-07-04 15:41 | PDOC.HOSPP ---
- Subjective Encounter Date: 07/04/20 Encounter Time: 15:30 Subjective: f/u for resp failure with Trach/PEG receiving O2 support via trach collar and Jevity 1.2. Awaiting swing bed option currently. - Objective Vital Signs & Weight: Vital Signs (12 hours) Temp Pulse Resp BP Pulse Ox 07/04/20 11:54 60 18 100 07/04/20 07:30 97.9 F 47 L 14 140/90 99 07/04/20 07:29 52 L 16 96 07/04/20 06:45 100 Weight Admit Weight 162 lb 4.163 oz Weight 172 lb 3.602 oz Most Recent Monitor Data Heart Rate from ECG 64 NIBP 106/76 NIBP BP-Mean 86 Respiration from ECG 18 SpO2 93 I&O: 07/03/20 07/04/20 07/05/20 06:59 06:59 06:59 Intake Total 2850 1860 540 Output Total 1900 1720 Balance 950 140 540 Result Diagrams: 07/01/20 05:34 07/01/20 05:34 Hospitalist ROS - Medication Medications: Active Medications Generic Name Dose Route Start Last Admin Trade Name Freq PRN Reason Stop Dose Admin Acidophilus 1 tab 06/09/20 15:00 07/04/20 14:41 Lactinex Tablet PO 1 tab TID JEEVAN Administration Albuterol/Ipratropium 3 ml 06/10/20 13:00 07/04/20 11:54 Ipratropium/Albuterol Sulfate 3 Ml Neb NEB 3 ml [id number] JEEVAN Administration Amiodarone HCl 200 mg 06/20/20 09:00 07/04/20 08:20 Amiodarone 200 Mg Tab PO 200 mg DAILY JEEVAN Administration Baclofen 10 mg 06/23/20 15:00 07/04/20 14:41 Baclofen 10 Mg Tab PER TUBE 10 mg TID JEEVAN Administration Bisacodyl 10 mg 06/09/20 17:59 06/24/20 11:23 Bisacodyl 10 Mg Supp [place] 10 mg Q8H PRN Administration Constipation Enoxaparin Sodium 40 mg 06/15/20 09:00 07/04/20 08:19 Enoxaparin Sodium 40 Mg/0.4 Ml Syringe SC 40 mg 0900 JEEVAN Administration Famotidine 20 mg 06/13/20 21:00 07/04/20 08:19 Famotidine 20 Mg Tab PER TUBE 20 mg Q12HR JEEVAN Administration Levothyroxine Sodium 100 mcg 06/13/20 06:00 07/04/20 05:32 Levothyroxine Sodium 100 Mcg Tab PO 100 mcg 0600 JEEVAN Administration Ondansetron HCl 4 mg 06/24/20 11:10 06/24/20 11:23 Ondansetron Pf 4 Mg/2 Ml Vial IVP 4 mg Q6H PRN Administration Nausea/Vomiting Polyethylene Glycol 17 gm 06/15/20 09:00 07/04/20 08:40 Polyethylene Glycol 3350 17 Gm Packet PO Not Given DAILY JEEVAN Prednisone 5 mg 07/03/20 08:00 07/04/20 08:18 Prednisone 5 Mg Tab PO 5 mg QAM-WM JEEVAN Administration Sodium Chloride 10 ml 06/13/20 09:00 07/04/20 08:19 Flush - Normal Saline 10 Ml Syringe IVF 10 ml Q12HR JEEVAN Administration - Exam General Appearance: NAD, awake alert Eye: PERRL, anicteric sclera ENT: normocephalic atraumatic, no oropharyngeal lesions Neck: supple, symmetric, no JVD, no thyromegaly, no lymphadenopathy Heart: RRR, no gallops, no rubs, normal peripheral pulses Heart - other findings: S1, S2 Respiratory: no tachypnea Respiratory - other findings: diminished in bases o/w clear Gastrointestinal: soft, non-tender, non-distended, normal bowel sounds, no palpable masses Extremities: no cyanosis, no clubbing Skin: normal turgor Neurological: cranial nerve grossly intact Neurological - other findings: paraplegia Musculoskeletal: normal tone, generalized weakness Psychiatric: normal affect, A&O x 3 Hosp A/P (1) Aspiration pneumonia Code(s): J69.0 - PNEUMONITIS DUE TO INHALATION OF FOOD AND VOMIT Status: Acute Qualifiers: Aspiration pneumonia type: unspecified Laterality: bilateral Plan: Continue aspiration precautions, O2 support, completed abx course (2) Acute respiratory failure with hypoxia Code(s): J96.01 - ACUTE RESPIRATORY FAILURE WITH HYPOXIA Status: Acute Plan: Continue Trach with T-piece, suctioning per protocol (3) Paraplegia Code(s): G82.20 - PARAPLEGIA, UNSPECIFIED Status: Chronic (4) Dysphagia Code(s): R13.10 - DYSPHAGIA, UNSPECIFIED Status: Chronic Qualifiers: Dysphagia type: oropharyngeal phase Qualified Code(s): R13.12 - Dysphagia, oropharyngeal phase Plan: Continue Jevity 1.2 - Plan PT/OT, case management social worker, speech therapy, respiratory therapy, DVT proph w/SCDs Stable currently Continue pulmonary support and trach care Nutritional support with Jevity 1.2 OOB to wheelchair CM coordinating for swing bed
[2020-07-05] MEDS: Levothyroxine Sodium 100 MCG TAB PO SCH (05:01)
[2020-07-05 07:37] VITALS: BP 97/61; TEMP 97.8
[2020-07-05] MEDS: Amiodarone 200 MG TAB PO SCH (10:03)
[2020-07-05] MEDS: predniSONE 5 MG TAB PO SCH (10:04)
[2020-07-05] MEDS: Baclofen 10 MG TAB PER TUBE SCH ×2 (10:04→14:06)
[2020-07-05] MEDS: Lactinex Tablet PO SCH ×2 (10:04→14:06)
[2020-07-05] MEDS: Famotidine 20 MG TAB PER TUBE SCH (10:04)
[2020-07-05] MEDS: Polyethylene Glycol 3350 17 GM Packet PO SCH (10:05)
[2020-07-05] MEDS: Enoxaparin Sodium 40 MG/0.4 ML SYRINGE SC SCH (10:05)
--- NOTE | 2020-07-05 10:30 | PRG ---
DATE OF SERVICE: 07/05/2020 SUBJECTIVE: This morning, she is awake, alert, and responsive. OBJECTIVE: VITAL SIGNS: Temperature 97, pulse 66, sats 100% on 28% FiO2, trach collar, blood pressure . CHEST: No wheezing. No crackles. CARDIAC: Normal S1 and S2. No gallops. ASSESSMENT: Respiratory failure, quadriplegia, cardiac arrhythmias, . PLAN: She is going to go to a swing bed in [place]. Continue present treatment, PT, supportive care. Taper her steroids. Job ID: [id number]
[2020-07-05 13:54] VITALS: BMI 30.4
[2020-07-05] MEDS ORDERED: Nystatin Powder 15 GM BOT TOP SCH (21:00)
--- NOTE | 2020-07-06 01:58 | DIS ---
DATE OF ADMISSION: 06/09/2020 DATE OF DISCHARGE: 07/05/2020 PRIMARY CARE PROVIDER: Dr. Buzz Hui. DISCHARGE DIAGNOSES: 1. Acute hypoxic respiratory failure. 2. Sepsis. 3. Aspiration pneumonia. 4. Chronic hyponatremia. 5. Atrial fibrillation with rapid ventricular response. 6. Hypokalemia. CONDITION OF PATIENT ON THE DAY OF DISCHARGE: Stable. I assessed Ms. Mai on the day of discharge. She denies any chest pain or shortness of breath. Vital signs are stable. S1 and S2 are heard, regular. Lungs are clear to auscultation bilaterally. CONSULTATIONS DURING THIS HOSPITALIZATION: 1. Infectious Diseases, Dr. Del Valle. 2. Pulmonary and Critical Care Medicine, Dr. Mayorga. 3. Gastroenterology, Dr. Sanches. 4. Cardiology, Dr. Truong. 5. Electrophysiology, Dr. Orr. 6. General Surgery, Dr. Hernández. HOSPITAL COURSE: Ms. Mai is a pleasant 64-year-old lady, who was admitted to [facility] on June 09, 2020, for acute hypoxic respiratory failure. Please refer to Dr. Pierce's history and physical note dated June 09, 2020, for further details. She was seen by Pulmonary and Critical Care Medicine as well as Infectious Disease Service. She was started on antibiotics for aspiration pneumonia. On June 12, 2020, she underwent intubation and mechanical ventilation. She also had new onset of atrial flutter with rapid ventricular response. She was started on amiodarone and diltiazem drip. She converted to sinus rhythm. On June 19, she underwent tracheostomy and PEG tube placement. She was started on PEG tube feeds. She continued to gradually improve. She is being discharged to [facility] for further management. DISCHARGE MEDICATIONS: 1. Amiodarone 200 mg per tube daily. 2. Apixaban 5 mg per tube two times a day. 3. Dulcolax 10 mg rectally every 8 hours as needed. 4. Baclofen 10 mg per tube three times a day. 5. MiraLAX 17 g per tube daily. 6. Oxybutynin 5 mg per tube two times a day. 7. Prednisone 5 mg per tube daily. 8. Levothyroxine 100 mcg per tube daily. POST-ACUTE CARE FOLLOWUP: With primary care provider in 3 days. DIET: Tube feeds. DISCHARGE DESTINATION: [facility]. ACTIVITY: As tolerated. DISCHARGE DESTINATION: Swing bed. TIME SPENT: Total amount of time spent coordinating this discharge: 33 minutes. Job ID: [id number]
== END 2020-07-05 18:31 | disposition swing bed (61) | DRG 4 ==
LOC: IMCU/EMU 12:56 → CCU 13:20 → IMCU/EMU 06-25 12:24 → T4-B 06-30 11:39
PROVIDERS: ADMIT Internal Medicine; ATTEND Internal Medicine
PROC: 0B9F8ZZ Drainage of Right Lower Lung Lobe, Via Natural or Artificial Opening Endoscopic (ICD-10-PCS; principal; 2020-06-09)
PROC: 5A1955Z Respiratory Ventilation, Greater than 96 Consecutive Hours (ICD-10-PCS; 2020-06-09)
PROC: 0B9G8ZZ Drainage of Left Upper Lung Lobe, Via Natural or Artificial Opening Endoscopic (ICD-10-PCS; 2020-06-09)
PROC: 0BH18EZ Insertion of Endotracheal Airway into Trachea, Via Natural or Artificial Opening Endoscopic (ICD-10-PCS; 2020-06-09)
PROC: 0B918ZZ Drainage of Trachea, Via Natural or Artificial Opening Endoscopic (ICD-10-PCS; 2020-06-12)
PROC: 0B9L8ZZ Drainage of Left Lung, Via Natural or Artificial Opening Endoscopic (ICD-10-PCS; 2020-06-12)
PROC: 0B110F4 Bypass Trachea to Cutaneous with Tracheostomy Device, Open Approach (ICD-10-PCS; 2020-06-19)
PROC: 0DH63UZ Insertion of Feeding Device into Stomach, Percutaneous Approach (ICD-10-PCS; 2020-06-19)
DX: A41.9 Sepsis, unspecified organism (principal); J96.01 Acute respiratory failure with hypoxia; J69.0 Pneumonitis due to inhalation of food and vomit; G82.50 Quadriplegia, unspecified; E87.1 Hypo-osmolality and hyponatremia; E87.3 Alkalosis; J90 Pleural effusion, not elsewhere classified; I47.1 Supraventricular tachycardia; I48.3 Typical atrial flutter; G93.40 Encephalopathy, unspecified; R53.81 Other malaise; Z51.5 Encounter for palliative care; E87.6 Hypokalemia; D64.9 Anemia, unspecified; E03.9 Hypothyroidism, unspecified; Z20.828 Contact with and (suspected) exposure to other viral communicable diseases; I11.0 Hypertensive heart disease with heart failure; I48.0 Paroxysmal atrial fibrillation; R13.12 Dysphagia, oropharyngeal phase; I50.9 Heart failure, unspecified; Z88.2 Allergy status to sulfonamides; Z90.710 Acquired absence of both cervix and uterus
CPT/HCPCS: 31624; 36415; 36416; 70450; 71045; 74018; 80048; 80053; 80202; 82533; 82805; 83735; 83880; 84100; 84443; 85025; 87070; 87205; 93005; 93010; 93306; 94002; 94003; 94640; 94660; J0171; J0282; J1650; J1940; J2001; J2060; J2185; J2250; J2270; J2405; J2543; J2704; J2920; J3010; J3370; J3475; J3480; J3490; J7050; J7070; J7512; J7620; S0028

== ENCOUNTER 2020-07-19 10:41 | Outpatient (CLI) | payer MEDICARE, MEDICAID ==
--- NOTE | 2020-07-22 16:33 | RAD ---
Exam: Modified barium swallow the presence of speech pathologist HISTORY: Dysphagia, unspecified. Feeding difficulties. FINDINGS: The presence speech pathologist, the patient was administered puree, nectar thick, thin liq uid, chopped texture, mechanical soft and regular texture foods. No evidence of penetration or aspiration. IMPRESSION: Please refer to speech pathologist report for feeding recommendation.
== END 2020-07-19 10:42 | disposition home or self-care (01) ==
PROVIDERS: ATTEND Family Medicine
DX: I69.191 Dysphagia following nontraumatic intracerebral hemorrhage (principal); R63.3 Feeding difficulties
CPT/HCPCS: 74230

== ENCOUNTER 2020-09-25 10:37 | Outpatient (CLI) | payer MEDICARE, MEDICAID ==
--- NOTE | 2020-09-25 11:36 | RAD ---
EXAM: Two views chest PROVIDED CLINICAL HISTORY: Dyspnea. COMPARISON: 07/27/2020 FINDINGS: Tracheostomy tube is again noted in place. Cardiac silhouette is magnified by patient rotation to the left. Pulmonary vasculature is within normal limits. There is are patchy parenchymal airspace opacities in the right perihilar location worrisome for pneumonia. Stable biapical pleural and parenc hymal scarring. As right convex curvature thoracic spine is again seen. No other interval change. IMPRESSION: 1. Pneumonia right perihilar region. Exact lobes of involvement are difficult to determine based on l ateral projection, but parenchymal opacities are likely present in the right upper lobe and right middle lobe. Follow-up to complete resolution is recommended.
== END 2020-09-25 10:38 | disposition home or self-care (01) ==
LOC: BICRAD 10:37
PROVIDERS: ATTEND Internal Medicine Pulmonary Disease
DX: R06.00 Dyspnea, unspecified (principal); J18.9 Pneumonia, unspecified organism
CPT/HCPCS: 71046

== ENCOUNTER 2020-09-25 10:42 | Outpatient (CLI) | payer MEDICARE, MEDICAID ==
--- NOTE | 2020-09-25 11:27 | RAD ---
EXAM: XR Abdomen 1 View/KUB PROVIDED CLINICAL HISTORY: Ileus COMPARISON: 06/09/2020 FINDINGS: There is conspicuous gaseous distention of colon in an overall nonspecific bowel gas pattern. The sup ine nature the examination is not sensitive for detection of pneumoperitoneum. Percutaneous gastrostomy tube overlies the left upper quadrant. There is no evidence for radiographically apparent urinary tract calculi. The osseous structures demonstrate no acute findings. IMPRESSION: Nonspecific gaseous distention of colon.
== END 2020-09-25 10:43 | disposition home or self-care (01) ==
LOC: BICRAD 10:42
PROVIDERS: ATTEND Physician Assistant Medical
DX: K56.7 Ileus, unspecified (principal); K63.89 Other specified diseases of intestine
CPT/HCPCS: 74018

== ENCOUNTER 2020-09-25 12:58 | Emergency (ER) | payer MEDICARE, MEDICAID ==
[2020-09-25 21:45] LABS: SARS-CoV-2 MS2 Positive; SARS-CoV-2 N Gene Negative; SARS-CoV-2 S Gene Negative; SARS-CoV-2 by NAA Not Detected (NotDetected); SARS-CoV-2 orf1ab Negative
== END 2020-09-25 14:21 | disposition home or self-care (01) ==
LOC: ERS 12:58
DX: R05 Cough (principal); Z20.822 Contact with and (suspected) exposure to COVID-19; E03.9 Hypothyroidism, unspecified; K56.7 Ileus, unspecified; K63.89 Other specified diseases of intestine; R06.00 Dyspnea, unspecified; J18.9 Pneumonia, unspecified organism
CPT/HCPCS: 71046; 74018; 99283; U0003; 87635

== ENCOUNTER 2022-11-12 18:04 | Inpatient (IN) | payer MEDICARE, MEDICAID ==
[2022-11-12 19:37] LABS: #Eosinphils 0.4 thou/uL (0.0-0.7); #Lymphocytes 2.2 thou/uL (1.20-3.40); #Monocytes 1.1 thou/uL (0.11-0.59); #Neutrophils 12.9 thou/uL (1.40-6.50); %Basophils 0.1 % (0.0-1.0); %Eosinophils 2.2 % (0.0-10.0); %Lymphocytes 13.1 % (21.0-51.0); %Monocytes 6.4 % (0.0-10.0); %Neutrophils 78.2 % (42.0-75.0); Hemoglobin 13.3 g/dL (12.0-16.0); Mean Corpuscular HGB CONC 33.7 g/dL (32.0-36.0); Mean Corpuscular Hemoglobin 30.8 pg (27.0-31.0); Mean Corpuscular Volume 91.4 fl (78.0-98.0); Mean Platelet Volume 7.6 fL (7.4-10.4); Platelet Count 294 10x3/uL (130-400); RBC Distribution Width 13.3 % (11.5-14.5); Red Blood Cell (RBC) Count 4.32 mill/uL (4.20-5.40); White Blood Cell (WBC) Count 16.5 10x3/uL (4.8-10.8)
[2022-11-12 19:40] LABS: ALT (SGPT) 223 U/L (8-55); AST (SGOT) 60 U/L (5-34); Albumin 3.6 g/dL (3.4-4.8); Alkaline Phosphatase 161 U/L (40-110); Anion Gap 14 mmol/L (10-20); BUN (Urea Nitrogen) 14 mg/dL (9.8-20.1); Bilirubin, Total 0.7 mg/dL (0.2-1.2); Calc. Creatinine Clearance 0 mL/min (70-130); Calcium 9.5 mg/dL (7.8-10.44); Carbon Dioxide 24 mmol/L (23-31); Chloride 99 mmol/L (98-107); Estimated GFR 108; Globulin 2.9 g/dL (2.4-3.5); Glucose 102 mg/dL (80-115); Protein, Total 6.5 g/dL (5.8-8.1); Sodium 134 mmol/L (136-145)
[2022-11-12] MEDS ORDERED: Vancomycin 1 GM/200 ML (FROZEN) BAG ONE (20:52)
[2022-11-12] MEDS ORDERED: Bisacodyl 10 MG SUPP PR PRN (21:40)
[2022-11-12] MEDS ORDERED: Electrolyte Replacement Protocol FS SCH (21:45)
[2022-11-12] MEDS ORDERED: Potassium Bicarbonate/Cit Ac 20 MEQ TAB PER TUBE SCH (21:45)
[2022-11-12] MEDS ORDERED: Acetaminophen 325 MG TAB PER TUBE PRN (21:49)
[2022-11-12] MEDS ORDERED: Senokot S 8.6-50 MG TAB PER TUBE PRN (21:49)
[2022-11-12] MEDS ORDERED: Ipratropium/Albuterol 3 ML NEB NEB SCH (23:00)
[2022-11-12] MEDS ORDERED: Potassium Bicarbonate/Cit Ac 20 MEQ TAB PO SCH (23:15)
[2022-11-12] MEDS ORDERED: Senokot S 8.6-50 MG TAB PO PRN (23:15)
[2022-11-12] MEDS ORDERED: Acetylcysteine 10% 100 MG/ML (4ML VIAL) INH SCH (23:59)
[2022-11-13 00:27] VITALS: BMI 27.1
[2022-11-13 01:11] LABS: SARS-CoV-2 NAA Rapid Test Not Detected (NotDetected)
[2022-11-13] MEDS ORDERED: Ipratropium/Albuterol 3 ML NEB NEB PRN (01:38)
[2022-11-13] MEDS ORDERED: Nystatin Powder 15 GM BOT TOP PRN (01:38)
[2022-11-13] MEDS ORDERED: Acetylcysteine 10% 100 MG/ML (4ML VIAL) INH PRN (01:38)
[2022-11-13 05:40] LABS: #Eosinphils 0.6 thou/uL (0.0-0.7); #Lymphocytes 1.9 thou/uL (1.20-3.40); #Monocytes 1.1 thou/uL (0.11-0.59); #Neutrophils 11.4 thou/uL (1.40-6.50); %Basophils 0.2 % (0.0-1.0); %Eosinophils 3.7 % (0.0-10.0); %Lymphocytes 12.7 % (21.0-51.0); %Monocytes 7.4 % (0.0-10.0); %Neutrophils 76.1 % (42.0-75.0); Hemoglobin 12.3 g/dL (12.0-16.0); Mean Corpuscular Hemoglobin 29.5 pg (27.0-31.0); Mean Corpuscular Volume 92.1 fl (78.0-98.0); Mean Platelet Volume 7.4 fL (7.4-10.4); Platelet Count 265 10x3/uL (130-400); RBC Distribution Width 13.2 % (11.5-14.5); Red Blood Cell (RBC) Count 4.16 mill/uL (4.20-5.40)
[2022-11-13] MEDS: VANCOMYCIN 1.25 GM/250 ML BAG 1.25 GM in Premix Bag 1 BAG IVPB SCH ×4 (06:00→21:38)
[2022-11-13] MEDS: Levothyroxine Sodium 88 MCG TAB PO SCH (06:00)
[2022-11-13 06:22] LABS: ALT (SGPT) 194 U/L (8-55); AST (SGOT) 64 U/L (5-34); Albumin 3.1 g/dL (3.4-4.8); Alkaline Phosphatase 135 U/L (40-110); Anion Gap 13 mmol/L (10-20); BUN (Urea Nitrogen) 11 mg/dL (9.8-20.1); Bilirubin, Total 0.6 mg/dL (0.2-1.2); Calc. Creatinine Clearance 177 mL/min (70-130); Calcium 8.9 mg/dL (7.8-10.44); Carbon Dioxide 26 mmol/L (23-31); Chloride 100 mmol/L (98-107); Estimated GFR 109; Globulin 3.4 g/dL (2.4-3.5); Glucose 105 mg/dL (80-115); Potassium 4.1 mmol/L (3.5-5.1); Protein, Total 6.5 g/dL (5.8-8.1); Sodium 135 mmol/L (136-145)
[2022-11-13] MEDS ORDERED: Baclofen 10 MG TAB PO SCH (09:00)
[2022-11-13] MEDS ORDERED: Vancomycin 1.5 GRAM/300 ML BAG IVPB SCH (09:00)
[2022-11-13] MEDS ORDERED: Apixaban 5 MG TAB PO SCH (09:00)
[2022-11-13] MEDS: Famotidine 20 MG TAB PO SCH ×2 (10:24→21:38)
[2022-11-13] MEDS: Baclofen 10 MG TAB PO SCH ×3 (10:24→21:37)
[2022-11-13] MEDS: Polyethylene Glycol 3350 17 GM Packet PO SCH (10:25)
[2022-11-13] MEDS: Oxybutynin 5 MG TAB PO SCH ×2 (10:26→21:38)
[2022-11-13] MEDS: Acetaminophen 325 MG TAB PO PRN ×2 (10:46→23:11)
[2022-11-13 20:53] LABS: Vancomycin, Trough 19.6 ug/mL
[2022-11-13] MEDS: Apixaban 5 MG TAB PO SCH (21:37)
[2022-11-14] MEDS: Levothyroxine Sodium 88 MCG TAB PO SCH (05:32)
[2022-11-14] MEDS: Apixaban 5 MG TAB PO SCH ×2 (09:28→21:47)
[2022-11-14] MEDS: Saccharomyces boulardii 250 MG CAP PO SCH (09:29)
[2022-11-14] MEDS: Baclofen 10 MG TAB PO SCH ×3 (09:29→21:47)
[2022-11-14] MEDS: Polyethylene Glycol 3350 17 GM Packet PO SCH (09:29)
[2022-11-14] MEDS: VANCOMYCIN 1.25 GM/250 ML BAG 1.25 GM in Premix Bag 1 BAG IVPB SCH ×2 (09:29→23:25)
[2022-11-14] MEDS: Famotidine 20 MG TAB PO SCH ×2 (09:29→21:47)
[2022-11-14] MEDS: Oxybutynin 5 MG TAB PO SCH ×2 (09:29→21:47)
[2022-11-14] MEDS ORDERED: Magnevist 469MG/ML 20 ML VIAL ONE (12:59)
[2022-11-14] MEDS: Vancomycin 1 GM in Premix Bag 1 BAG IVPB SCH (23:32)
[2022-11-15] MEDS: Levothyroxine Sodium 88 MCG TAB PO SCH (05:26)
[2022-11-15 07:30] LABS: Hemoglobin 12.1 g/dL (12.0-16.0); Mean Corpuscular HGB CONC 32.7 g/dL (32.0-36.0); Mean Corpuscular Hemoglobin 30.3 pg (27.0-31.0); Mean Corpuscular Volume 92.7 fl (78.0-98.0); Mean Platelet Volume 7.5 fL (7.4-10.4); Platelet Count 300 10x3/uL (130-400); RBC Distribution Width 13.2 % (11.5-14.5); Red Blood Cell (RBC) Count 3.99 mill/uL (4.20-5.40); White Blood Cell (WBC) Count 12.3 10x3/uL (4.8-10.8)
[2022-11-15 07:51] VITALS: TEMP 99.2
[2022-11-15] MEDS: Oxybutynin 5 MG TAB PO SCH (09:10)
[2022-11-15] MEDS: Famotidine 20 MG TAB PO SCH (09:10)
[2022-11-15] MEDS: Saccharomyces boulardii 250 MG CAP PO SCH (09:10)
[2022-11-15] MEDS: Polyethylene Glycol 3350 17 GM Packet PO SCH (09:10)
[2022-11-15] MEDS: Baclofen 10 MG TAB PO SCH (09:10)
[2022-11-15] MEDS: Apixaban 5 MG TAB PO SCH (09:11)
[2022-11-15] MEDS: Vancomycin 1 GM in Premix Bag 1 BAG IVPB SCH (10:26)
[2022-11-15 11:24] VITALS: BP 111/76
== END 2022-11-15 14:35 | disposition home or self-care (01) | DRG 562 ==
LOC: ERS 18:04 → INTOOBSV 21:31 → SURG B 21:31 → OBSVTOIN 11-13 15:17
PROVIDERS: ADMIT Student in an Organized Health Care Education/Training Program; ATTEND Internal Medicine
PROC: 2W3LX1Z Immobilization of Right Lower Extremity using Splint (ICD-10-PCS; principal; 2022-11-13)
DX: S82.101A Unspecified fracture of upper end of right tibia, initial encounter for closed fracture (principal); G82.53 Quadriplegia, C5-C7 complete; L03.115 Cellulitis of right lower limb; E87.1 Hypo-osmolality and hyponatremia; E87.6 Hypokalemia; G47.33 Obstructive sleep apnea (adult) (pediatric); E03.9 Hypothyroidism, unspecified; S82.831A Other fracture of upper and lower end of right fibula, initial encounter for closed fracture; X58.XXXA Exposure to other specified factors, initial encounter; K80.20 Calculus of gallbladder without cholecystitis without obstruction; Z20.822 Contact with and (suspected) exposure to COVID-19; Y92.89 Other specified places as the place of occurrence of the external cause; Z79.899 Other long term (current) drug therapy; Z79.01 Long term (current) use of anticoagulants; Z88.2 Allergy status to sulfonamides; Z90.710 Acquired absence of both cervix and uterus
CPT/HCPCS: 29505; 36415; 76705; 80053; 80202; 83605; 84443; 84484; 85025; 85027; 85652; 86140; 87040; 93005; 96365; 96367; 96372; 96376; A9579; G0378; J1650; J3370; J3370-JW; U0002

== ENCOUNTER 2023-07-05 20:51 | Inpatient (IN) | payer MEDICARE, MEDICAID ==
[~2023-07-05 20:51] MED LIST: Iopamidol-370 76% 500 ML MDV (1 ML CHARGE) ONE
[2023-07-05 21:19] LABS: Bilirubin Negative (Negative); Blood, Urine Trace (Negative); Glucose, Urine (Dipstick) Negative (Negative); Ketone, Urine Negative (Negative); Leukocyte Small (Negative); Nitrite Negative (Negative); Protein, Urine (Dipstick) Negative (Neg-Trace); Urobilinogen 0.2 mg/dL (Less than 2); pH, Urine 7.5 (5.0-9.0)
[2023-07-05 21:25] LABS: Clarity Clear (Clear)
[2023-07-05 21:28] LABS: Bacteria/HPF 2+ HPF (None Seen); CAUTI Indications for Culture Dysuria,urgency,freq; Calcium Oxalate Crystals Rare HPF (None Seen); RBC/HPF 0-3 HPF (0-3); Squamous Epithelial 0-3 HPF (0-3)
[2023-07-05 21:30] LABS: Urine Culture Reflex No No
[2023-07-05 21:30] LABS: #Monocytes 0.6 thou/uL (0.11-0.59); #Neutrophils 12.4 thou/uL (1.40-6.50); %Basophils 0.1 % (0.0-1.0); %Eosinophils 0.2 % (0.0-10.0); %Lymphocytes 7.5 % (21.0-51.0); %Monocytes 4.2 % (0.0-10.0); %Neutrophils 87.4 % (42.0-75.0); Hematocrit 43.3 % (36.0-47.0); Hemoglobin 14.9 g/dL (12.0-16.0); Mean Corpuscular HGB CONC 34.4 g/dL (32.0-36.0); Mean Corpuscular Hemoglobin 30.3 pg (27.0-31.0); Mean Corpuscular Volume 88.2 fl (78.0-98.0); Mean Platelet Volume 9.4 fL (7.4-10.4); Platelet Count 325 10x3/uL (130-400); RBC Distribution Width 14.1 % (11.5-14.5); Red Blood Cell (RBC) Count 4.91 mill/uL (4.20-5.40); White Blood Cell (WBC) Count 14.2 10x3/uL (4.8-10.8)
[2023-07-05 21:58] LABS: ALT (SGPT) 679 U/L (8-55); AST (SGOT) 765 U/L (5-34); Albumin 4.3 g/dL (3.4-4.8); Alkaline Phosphatase 174 U/L (40-110); Anion Gap 14 mmol/L (10-20); BUN (Urea Nitrogen) 14 mg/dL (9.8-20.1); Bilirubin, Total 1.5 mg/dL (0.2-1.2); Calc. Creatinine Clearance 0 mL/min (70-130); Calcium 9.9 mg/dL (7.8-10.44); Carbon Dioxide 27 mmol/L (23-31); Chloride 94 mmol/L (98-107); Estimated GFR 106; Globulin 2.7 g/dL (2.4-3.5); Glucose 143 mg/dL (80-115); Potassium 4.1 mmol/L (3.5-5.1); Sodium 131 mmol/L (136-145)
[2023-07-05 21:59] LABS: Troponin I Less than 0.010 ng/mL (< 0.028)
[2023-07-05 22:11] LABS: Lipase 5369 U/L (8-78)
[2023-07-05] MEDS ORDERED: Ondansetron PF 4 MG/2 ML Vial IVP PRN (23:19)
[2023-07-05] MEDS ORDERED: Acetaminophen 650 MG Suppository PR PRN (23:19)
[2023-07-05] MEDS ORDERED: Acetaminophen 325 MG TAB PO PRN (23:19)
[2023-07-05] MEDS ORDERED: Ondansetron ODT 4 MG TAB PO PRN (23:19)
[2023-07-05] MEDS ORDERED: Piperacillin/Tazobactam 3.375 GM in Sodium Chloride 0.9% 100 ML IVPB SCH (23:59)
[2023-07-06] MEDS ORDERED: Ipratropium/Albuterol 3 ML NEB NEB PRN (00:29)
[2023-07-06] MEDS: Sodium Chloride 0.9% 1,000 ML IV SCH ×4 (01:42→21:27)
[2023-07-06 02:05] VITALS: BMI 26.6
[2023-07-06] MEDS ORDERED: Baclofen 10 MG TAB PO SCH ×4 (02:07→22:00)
[2023-07-06] MEDS ORDERED: Oxybutynin 5 MG TAB PO SCH (02:15)
[2023-07-06] MEDS ORDERED: Morphine 4 MG/ML VIAL SLOW IVP PRN (02:52)
[2023-07-06] MEDS: Piperacillin/Tazobactam 3.375 GM in Sodium Chloride 0.9% 100 ML IVPB SCH ×3 (04:40→21:28)
[2023-07-06 05:48] LABS: Cardiac Risk 2.5 (Less than 4.5); Cholesterol 119 mg/dl (< 200 Desired); HDL Cholesterol 48 mg/dL (>60 Neg Risk); LDL Cholesterol, Calculated 60 mg/dL; Magnesium 1.9 mg/dL (1.6-2.6); Phosphorus 3.3 mg/dL (2.3-4.7); Triglycerides 55 mg/dL (Less than 150)
[2023-07-06] MEDS: Oxybutynin 5 MG TAB PO SCH ×2 (08:39→21:26)
[2023-07-06] MEDS: Levothyroxine Sodium 88 MCG TAB PO SCH (08:39)
[2023-07-06 09:51] LABS: #Eosinphils 0.3 thou/uL (0.0-0.7); #Monocytes 0.6 thou/uL (0.11-0.59); #Neutrophils 7.9 thou/uL (1.40-6.50); %Basophils 0.4 % (0.0-1.0); %Eosinophils 3.1 % (0.0-10.0); %Lymphocytes 12.9 % (21.0-51.0); %Monocytes 5.4 % (0.0-10.0); %Neutrophils 77.6 % (42.0-75.0); Hematocrit 39.6 % (36.0-47.0); Mean Corpuscular HGB CONC 32.8 g/dL (32.0-36.0); Mean Corpuscular Hemoglobin 29.9 pg (27.0-31.0); Mean Platelet Volume 9.6 fL (7.4-10.4); Platelet Count 259 10x3/uL (130-400); RBC Distribution Width 14.6 % (11.5-14.5); Red Blood Cell (RBC) Count 4.35 mill/uL (4.20-5.40); White Blood Cell (WBC) Count 10.2 10x3/uL (4.8-10.8)
[2023-07-06 10:06] LABS: INR-International Normal Ratio 1.1; PTT 35.3 sec (22.9-36.1); Prothrombin Time 14.5 sec (12.0-14.7)
[2023-07-06 13:07] LABS: ALT (SGPT) 498 U/L (8-55); AST (SGOT) 341 U/L (5-34); Albumin 3.7 g/dL (3.4-4.8); Alkaline Phosphatase 154 U/L (40-110); Bilirubin, Direct 0.4 mg/dL (0.1-0.3); Bilirubin, Total 0.8 mg/dL (0.2-1.2); Protein, Total 6.1 g/dL (5.8-8.1)
[2023-07-06] MEDS: Senokot S 8.6-50 MG TAB PO SCH (21:28)
[2023-07-07] MEDS: Piperacillin/Tazobactam 3.375 GM in Sodium Chloride 0.9% 100 ML IVPB SCH ×3 (04:05→20:26)
[2023-07-07] MEDS: Sodium Chloride 0.9% 1,000 ML IV SCH ×2 (04:25→17:39)
[2023-07-07 06:03] LABS: #Eosinphils 0.4 thou/uL (0.0-0.7); #Monocytes 0.6 thou/uL (0.11-0.59); #Neutrophils 7.1 thou/uL (1.40-6.50); %Basophils 0.3 % (0.0-1.0); %Eosinophils 4.4 % (0.0-10.0); %Neutrophils 69.9 % (42.0-75.0); Hematocrit 37.6 % (36.0-47.0); Hemoglobin 12.4 g/dL (12.0-16.0); Mean Corpuscular Hemoglobin 30.4 pg (27.0-31.0); Mean Corpuscular Volume 92.2 fl (78.0-98.0); Mean Platelet Volume 9.9 fL (7.4-10.4); Platelet Count 257 10x3/uL (130-400); RBC Distribution Width 14.7 % (11.5-14.5); Red Blood Cell (RBC) Count 4.08 mill/uL (4.20-5.40); White Blood Cell (WBC) Count 10.1 10x3/uL (4.8-10.8)
[2023-07-07 07:14] LABS: ALT (SGPT) 344 U/L (8-55); AST (SGOT) 134 U/L (5-34); Albumin 3.8 g/dL (3.4-4.8); Alkaline Phosphatase 136 U/L (40-110); Anion Gap 13 mmol/L (10-20); BUN (Urea Nitrogen) 6 mg/dL (9.8-20.1); Bilirubin, Total 0.7 mg/dL (0.2-1.2); Calc. Creatinine Clearance 168 mL/min (70-130); Carbon Dioxide 21 mmol/L (23-31); Chloride 104 mmol/L (98-107); Estimated GFR 109; Globulin 2.6 g/dL (2.4-3.5); Glucose 92 mg/dL (80-115); Protein, Total 6.4 g/dL (5.8-8.1); Sodium 135 mmol/L (136-145)
[2023-07-07] MEDS: Senokot S 8.6-50 MG TAB PO SCH ×2 (07:38→20:29)
[2023-07-07] MEDS: Polyethylene Glycol 3350 17 GM Packet PO SCH (07:38)
[2023-07-07] MEDS ORDERED: Magnesium 2 GM/50 ML(in water) 2 GM in Premix Bag 1 BAG IVPB SCH (08:00)
[2023-07-07] MEDS: Potassium Chloride 20 MEQ in Premix Bag 1 BAG IVPB SCH ×2 (08:40→08:45)
[2023-07-07] MEDS: Oxybutynin 5 MG TAB PO SCH ×2 (08:40→20:26)
[2023-07-07] MEDS: Levothyroxine Sodium 88 MCG TAB PO SCH (08:40)
[2023-07-07] MEDS ORDERED: Polyethylene Glycol 3350 17 GM Packet PO SCH (09:00)
[2023-07-07] MEDS ORDERED: PHENYLEPHRINE-NS 100 MCG/ML 10 ML SYRINGE ONE (10:10)
[2023-07-07] MEDS ORDERED: PROPOFOL 200 MG/20 ML VIAL ONE (10:10)
[2023-07-07] MEDS ORDERED: Rocuronium Bromide 10 MG/ML (10ML VIAL) ONE (10:10)
[2023-07-07] MEDS ORDERED: Dexamethasone 20 MG/5 ML VIAL ONE (10:10)
[2023-07-07] MEDS ORDERED: Ketorolac Tromethamine 30 MG/ML VIAL ONE (10:10)
[2023-07-07] MEDS ORDERED: SUGAMMADEX SODIUM 200 MG/2 ML VIAL ONE (10:27)
[2023-07-07] MEDS ORDERED: fentaNYL PF 100 MCG/2 ML SYRINGE ONE (10:27)
[2023-07-07] MEDS ORDERED: EPINEPHrine 1 MG/ML AMP ONE (10:33)
[2023-07-07] MEDS ORDERED: Bupivacaine 0.25% HCL 30 ML VIAL ONE (10:33)
[2023-07-07] MEDS ORDERED: Iopamidol 15 ML ONE (10:33)
[2023-07-07] MEDS ORDERED: Glucagon 1 MG/ML KIT ONE (10:33)
[2023-07-07] MEDS ORDERED: Sodium Chloride 0.9% 100 ML ONE (11:44)
[2023-07-07] MEDS ORDERED: Piperacillin/Tazobactam 3.375 GM VIAL ONE (11:44)
[2023-07-07] MEDS ORDERED: fentaNYL 50 mcg/mL 1 mL Vial ONE (12:13)
[2023-07-07] MEDS ORDERED: Ondansetron HCl/PF 4 MG/2 ML Vial IVP PRN (13:09)
[2023-07-07] MEDS: Potassium Chloride 20 MEQ TAB PO SCH ×2 (17:40→20:26)
[2023-07-07] MEDS: Baclofen 10 MG TAB PO SCH (20:26)
[2023-07-07] MEDS ORDERED: Baclofen 10 MG TAB PO SCH (21:00)
[2023-07-08] MEDS ORDERED: HYDROcodone/Acetaminophen 5/325 mg Tablet PO SCH (01:00)
[2023-07-08] MEDS: Sodium Chloride 0.9% 1,000 ML IV SCH ×2 (02:05→08:02)
[2023-07-08] MEDS: Piperacillin/Tazobactam 3.375 GM in Sodium Chloride 0.9% 100 ML IVPB SCH ×2 (02:54→11:59)
[2023-07-08 05:56] LABS: #Eosinphils 0.1 thou/uL (0.0-0.7); #Monocytes 0.7 thou/uL (0.11-0.59); #Neutrophils 6.3 thou/uL (1.40-6.50); %Basophils 0.3 % (0.0-1.0); %Eosinophils 0.7 % (0.0-10.0); %Lymphocytes 19.4 % (21.0-51.0); %Monocytes 7.9 % (0.0-10.0); %Neutrophils 71.1 % (42.0-75.0); Hemoglobin 10.3 g/dL (12.0-16.0); Mean Corpuscular HGB CONC 33.2 g/dL (32.0-36.0); Mean Corpuscular Hemoglobin 30.5 pg (27.0-31.0); Mean Corpuscular Volume 91.7 fl (78.0-98.0); Mean Platelet Volume 9.7 fL (7.4-10.4); Platelet Count 242 10x3/uL (130-400); Red Blood Cell (RBC) Count 3.38 mill/uL (4.20-5.40); White Blood Cell (WBC) Count 8.9 10x3/uL (4.8-10.8)
[2023-07-08 06:32] LABS: ALT (SGPT) 196 U/L (8-55); AST (SGOT) 45 U/L (5-34); Albumin 3.6 g/dL (3.4-4.8); Alkaline Phosphatase 103 U/L (40-110); Anion Gap 9 mmol/L (10-20); BUN (Urea Nitrogen) 8 mg/dL (9.8-20.1); Bilirubin, Total 0.3 mg/dL (0.2-1.2); Calc. Creatinine Clearance 168 mL/min (70-130); Calcium 8.6 mg/dL (7.8-10.44); Carbon Dioxide 27 mmol/L (23-31); Chloride 105 mmol/L (98-107); Estimated GFR 109; Globulin 2.2 g/dL (2.4-3.5); Glucose 81 mg/dL (80-115); Lipase 20 U/L (8-78); Potassium 3.7 mmol/L (3.5-5.1); Protein, Total 5.8 g/dL (5.8-8.1); Sodium 137 mmol/L (136-145)
[2023-07-08] MEDS: Levothyroxine Sodium 88 MCG TAB PO SCH (06:56)
[2023-07-08] MEDS ORDERED: Potassium Chloride 20 MEQ TAB PO SCH (08:00)
[2023-07-08] MEDS ORDERED: Lactated Ringer's 500 ML IV SCH (09:15)
[2023-07-08] MEDS: Senokot S 8.6-50 MG TAB PO SCH (09:29)
[2023-07-08] MEDS: Polyethylene Glycol 3350 17 GM Packet PO SCH (09:29)
[2023-07-08] MEDS: Baclofen 10 MG TAB PO SCH ×2 (09:29→14:04)
[2023-07-08] MEDS: Oxybutynin 5 MG TAB PO SCH (09:29)
[2023-07-08 12:49] VITALS: BP 103/65; TEMP 98.1
[2023-07-08] MEDS ORDERED: Apixaban 5 MG TAB PO SCH (21:00)
[2023-07-09] MEDS ORDERED: FLU VACC QS2023(65UP)/MF59C/PF 60 MCG/0.5 ML SYRINGE IM ONE (09:00)
== END 2023-07-08 16:08 | disposition home or self-care (01) | DRG 417 ==
LOC: ERS 20:51 → SURG B 23:17
PROVIDERS: ADMIT Student in an Organized Health Care Education/Training Program; ATTEND Internal Medicine
PROC: 0T9B70Z Drainage of Bladder with Drainage Device, Via Natural or Artificial Opening (ICD-10-PCS; principal; 2023-07-05)
PROC: 0FT44ZZ Resection of Gallbladder, Percutaneous Endoscopic Approach (ICD-10-PCS; 2023-07-07)
PROC: 0DNW4ZZ Release Peritoneum, Percutaneous Endoscopic Approach (ICD-10-PCS; 2023-07-07)
PROC: BF101ZZ Fluoroscopy of Bile Ducts using Low Osmolar Contrast (ICD-10-PCS; 2023-07-07)
DX: K85.10 Biliary acute pancreatitis without necrosis or infection (principal); G82.53 Quadriplegia, C5-C7 complete; K80.00 Calculus of gallbladder with acute cholecystitis without obstruction; E87.1 Hypo-osmolality and hyponatremia; N39.0 Urinary tract infection, site not specified; Z88.2 Allergy status to sulfonamides; Z88.1 Allergy status to other antibiotic agents; E03.9 Hypothyroidism, unspecified; I48.91 Unspecified atrial fibrillation; Z90.710 Acquired absence of both cervix and uterus; Z98.890 Other specified postprocedural states; Z79.899 Other long term (current) drug therapy; K66.0 Peritoneal adhesions (postprocedural) (postinfection); E66.01 Morbid (severe) obesity due to excess calories; Z68.26 Body mass index [BMI] 26.0-26.9, adult; E87.6 Hypokalemia
CPT/HCPCS: 36415; 47532; 51702; 74177; 76705; 80053; 80061; 80076; 81001; 83690; 83735; 84100; 84484; 85025; 85610; 85730; 87077; 87086; 87186; 88304; 93005; C1889; J0171; J1100; J1611; J1885; J2543; J2704; J3010; J3490; J7050; J7120; Q9967; S0020

== ENCOUNTER 2025-04-18 01:02 | Emergency (ER) | payer MEDICARE, OTHER ==
[2025-04-18 05:47] LABS: Troponin I Less than 0.010 ng/mL (< 0.028)
[2025-04-18 07:16] LABS: ALT (SGPT) 40 U/L (Less than 34); AST (SGOT) 42 U/L (11-34); Albumin 4.0 g/dL (3.1-4.5); Alkaline Phosphatase 73 U/L (40-110); Anion Gap 15 mmol/L (10-20); BUN (Urea Nitrogen) 16 mg/dL (9.8-20.1); Bilirubin, Total 0.4 mg/dL (0.3-1.2); Calc. Creatinine Clearance 0 mL/min (70-130); Calcium 8.7 mg/dL (7.8-10.44); Carbon Dioxide 23 mmol/L (23-31); Chloride 98 mmol/L (98-107); Globulin 2.7 g/dL (2.4-3.5); Glucose 124 mg/dL (80-115); Lipase 20 U/L (8-78); Potassium 4.1 mmol/L (3.5-5.1); Sodium 132 mmol/L (136-145)
[2025-04-18 07:22] LABS: #Basophils 0.02 10x3/uL (0.0-0.2); #Eosinophils 0.03 10x3/uL (0.0-0.7); #Monocytes 0.30 10x3/uL (0.11-0.59); #Neutrophils 9.09 10x3/uL (1.40-6.50); %Basophils 0.2 % (0.0-1.0); %Eosinophils 0.3 % (0.0-10.0); %Lymphocytes 5.8 % (21.0-51.0); %Monocytes 3.0 % (0.0-10.0); %Neutrophils 90.1 % (42.0-75.0); Hematocrit 36.7 % (36.0-47.0); Hemoglobin 12.6 g/dL (12.0-16.0); Mean Corpuscular Hemoglobin 30.7 pg (27.0-31.0); Mean Corpuscular Volume 89.3 fL (78.0-98.0); Platelet Count 251 10x3/uL (130-400); Red Blood Cell (RBC) Count 4.11 mill/uL (4.20-5.40); White Blood Cell (WBC) Count 10.08 10x3/uL (4.8-10.8)
[2025-04-18] MEDS ORDERED: Ondansetron PF 4 MG/2 ML Vial ONE (08:41)
[2025-04-18 09:04] LABS: Bacteria/HPF None Seen HPF (None Seen); Glucose, Urine (Dipstick) Normal (Negative); Leukocyte 250 Leu/uL (Negative); Protein, Urine (Dipstick) Negative (Neg-Trace); RBC/HPF 21-50 HPF (0-3); Specific Gravity, Urine 1.016 (1.002-1.036); WBC/HPF 21-50 HPF (0-3)
[2025-04-18 09:10] LABS: Urine Culture Reflex Yes Yes
[2025-04-18] MEDS ORDERED: Iopamidol-370 76% 500 ML MDV (1 ML CHARGE) ONE (11:09)
== END 2025-04-18 12:04 | disposition home or self-care (01) ==
LOC: ERS 01:02
DX: K52.9 Noninfective gastroenteritis and colitis, unspecified (principal); K59.00 Constipation, unspecified; I48.91 Unspecified atrial fibrillation; I10 Essential (primary) hypertension
CPT/HCPCS: 74177; 80053; 81001; 83690; 84484; 85025; 87086; 93005; J2405; 96374